=== PATIENT | male | born 1960 | race Caucasian/White ===

== ENCOUNTER 2016-10-24 20:00 | Inpatient (IN) | payer SELFPAY ==
[~2016-10-24] VITALS: Ht 182.9 cm; Wt 104.3 kg
[2016-10-24 20:26] LABS: BASO # 0.1 x10^3/uL (0.0-0.2); BASO % 1 % (0-3); EOS % 1 % (0-3); HEMATOCRIT 49.2 % (39.0-53.0); HEMOGLOBIN 16.3 g/dL (13.0-17.5); LYMPH # 5.9 x10^3/uL (1.0-4.8); LYMPH % 27 % (24-48); MEAN CORPUSCULAR HEMOGLOBIN 27 pg (25-35); MEAN CORPUSCULAR HGB CONC 33 g/dL (31-37); MEAN CORPUSCULAR VOLUME 83 fL (79-100); MONO % 9 % (0-9); NEUT % 63 % (31-73); PLATELET COUNT 287 x10^3/uL (140-400); RED BLOOD COUNT 5.96 x10^6/uL (4.30-5.70); RED CELL DISTRIBUTION WIDTH 16.3 % (11.5-14.5); WHITE BLOOD COUNT 21.8 x10^3/uL (4.0-11.0)
[2016-10-24] MEDS ORDERED: NITROGLYCERIN SUBLINGUAL 0.4 MG BOTTLE OF 25. SL PRN (20:30)
[2016-10-24] MEDS ORDERED: ASPIRIN 81 MG TAB.CHEW PO ONE (20:30)
[2016-10-24] MEDS: MORPHINE SULFATE 2 MG/ML DISP.SYRIN. IV PRN ×2 (20:32→22:16)
[2016-10-24 20:34] LABS: CALCIUM 9.4 mg/dL (8.5-10.1); CREATININE 0.9 mg/dL (0.7-1.3); POTASSIUM 3.2 mmol/L (3.5-5.1)
[2016-10-24 20:40] LABS: ALBUMIN 4.4 g/dL (3.4-5.0); DIRECT BILIRUBIN 0.1 mg/dL (0.0-0.2); TOTAL BILIRUBIN 0.4 mg/dL (0.2-1.0)
[2016-10-24 20:52] LABS: % EOS 3 % (0-5); PLT ESTIMATE ADEQUATE (ADEQUATE); TOXIC GRANULATION SLIGHT
[2016-10-24] MEDS ORDERED: CONTRAST GIVEN MC PRN (21:15)
[2016-10-24] MEDS ORDERED: IOHEXOL 350 MG/ML 100ML VIAL. IV ONE (21:30)
[2016-10-24] MEDS ORDERED: ONDANSETRON PF 4 MG/2 ML VIAL. IV ONE (21:45)
[2016-10-24] MEDS ORDERED: HYDROMORPHONE 2 MG/ML VIAL. IV ONE (21:45)
--- NOTE | 2016-10-24 22:49 | RAD ---
PROCEDURE CT angiogram of the chest abdomen pelvis without and with intravenous contrast. HISTORY Substernal chest pain since 1700 hours. Shortness of air, nausea, and vomiting. Evaluate for dissection, abdominal aortic aneurysm, or mesenteric enteric ischemia. TECHNIQUE Initially, noncontrast CT of the chest, abdomen, and pelvis was performed. After intravenous contrast administration, 90 mL Omnipaque 350, CT angiogram of the chest, abdomen, and pelvis with attention the aorta was performed. Axial, sagittal, and coronal 2D reconstructions were obtained. Rotating 3D volume rendered reconstructions of the aorta were obtained. Exposure: One or more of the following individualized dose reduction techniques were utilized for this examination: 1. Automated exposure control. 2. Adjustment of the mA and/or kV according to patient size. 3. Use of iterative reconstruction technique. Stenosis calculations for CT, MR and conventional angiography are based upon measurement of the distal ICA diameter in accordance with the NASCET methodology. Stenosis calculations for carotid ultrasound studies are derived from validated velocity criteria which are known to correlate with the NASCET methodology. COMPARISON None. FINDINGS Noncontrast images demonstrate no evidence of aortic intramural hematoma. Post-contrast images demonstrate no evidence of aortic dissection or aneurysm. Conventional 3 vessel aortic arch is present. Thoracic and abdominal aortic atherosclerosis is seen. There are 2 right renal arteries and single left renal artery. Celiac axis and superior mesenteric artery enhance appropriately. Ostium of the inferior mesenteric artery demonstrates 50 percent luminal diameter stenosis from atherosclerotic plaquing. Just inferior to the origin of the inferior mesenteric artery, there is focal 60% luminal diameter stenosis of the aorta. Iliac arteries are patent. Visualized thyroid is symmetric. Trachea and mainstem bronchi appear patent. Lungs demonstrate scattered atelectasis. Liver, spleen, gallbladder, and bilateral adrenal glands unremarkable. Bilateral kidneys enhance symmetrically. No bowel obstruction is seen. Appendix is without evidence of inflammation. Colonic diverticulosis is noted. Urinary bladder is enlarged. Given level of distention, urinary bladder wall is at the upper limits of normal. Moderate retroperitoneal fluid is seen centered at the pancreas. Findings are compatible with acute pancreatitis. There is secondary inflammation of the duodenum. Secondary to phase of enhancement, cannot assess for pancreatic necrosis or patency of the splenic vein. Degeneration is present in spine. IMPRESSION 1. Acute pancreatitis. 2. No evidence of aortic aneurysm or dissection. 3. 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 4. Focal 60 percent luminal diameter stenosis of the distal abdominal aorta. Electronically signed by: Herb Hill MD (Oct 24, 2016 22:47:14)
[2016-10-24] MEDS ORDERED: MORPHINE SULFATE 2 MG/ML DISP.SYRIN. IV PRN (23:00)
[2016-10-24] MEDS: HYDROMORPHONE 2 MG/ML VIAL. IV PRN (23:18)
[2016-10-24] MEDS ORDERED: IV NORMAL SALINE 1000ML BAG 1,000 ML IV ONE (23:45)
--- NOTE | 2016-10-24 23:55 | PHYS DOC ---
Past Medical History Past Medical History: Depression, Diverticulosis, High Cholesterol, Hypertension Past Surgical History: Other Additional Past Surgical Histo: LEFT AND RIGHT INGUINAL HERNIA REPAIR Alcohol Use: Rarely Drug Use: None Adult General Chief Complaint Chief Complaint: CHEST PAIN HPI HPI 56-year-old male presenting the emergency department with epigastric abdominal pain and substernal chest pain since about 5 tonight. It is associated with sweatiness nausea vomiting. It radiates to the back. It is severe and constant. He denies numbness weakness or tingling. He denies blood in stool. He denies fevers or chills. Review of Systems Review of Systems ROS negative for fevers or chills. Positive for chest pain nausea vomiting abdominal pain. All other review of systems is negative unless otherwise noted in history of present illness. Current Medications Current Medications Current Medications Medications (Trade) Dose Ordered Sig/Gisela Start Time Stop Time Status Last Admin Dose Admin Aspirin (Children'S Aspirin) 324 mg 1X ONCE 10/24/16 20:30 10/24/16 20:31 DC Fentanyl Citrate (Fentanyl 2ml Vial) 50 mcg PRN Q2HR PRN 10/24/16 23:00 10/25/16 22:59 Hydromorphone HCl (Dilaudid) 0.5 mg PRN Q1HR PRN 10/24/16 21:30 10/24/16 23:18 0.5 MG Info (Do NOT chart on this entry -- for MONITORING) 1 each PRN DAILY PRN 10/24/16 21:15 10/26/16 21:14 Iohexol (Omnipaque 350 Mg/ml) 90 ml 1X ONCE 10/24/16 21:30 10/24/16 21:31 DC 10/24/16 21:48 90 ML Morphine Sulfate 2 mg PRN Q2HR PRN 10/24/16 23:00 10/25/16 22:59 Nitroglycerin (Nitrostat) 0.4 mg PRN Q5MIN PRN 10/24/16 20:30 10/24/16 20:32 0.4 MG Ondansetron HCl (Zofran) 4 mg PRN Q8HRS PRN 10/24/16 23:00 10/25/16 22:59 Allergies Allergies Allergies Coded Allergies Type Severity Reaction Last Updated Verified No Known Drug Allergies 10/24/16 No Physical Exam Physical Exam Constitutional: Well developed, well nourished, no acute distress, non-toxic appearance. HENT: Normocephalic, atraumatic, bilateral external ears normal, oropharynx moist, no oral exudates, nose normal. [] Eyes: PERRLA, EOMI, conjunctiva normal, no discharge. [] Neck: Normal range of motion, no tenderness, supple, no stridor. Cardiovascular:Heart rate regular rhythm, no murmur [] Lungs & Thorax: Bilateral breath sounds clear to auscultation Abdomen: Abdomen is soft and mildly tender to palpation in the epigastric region. Negative McBurney's point. Mild guarding without rebound tenderness present. Skin: Warm, dry, no erythema, no rash. [] Back: No tenderness, no CVA tenderness. Extremities: No tenderness, no cyanosis, no clubbing, ROM intact, no edema. [] Neurologic: Alert and oriented X 3, normal motor function, normal sensory function, no focal deficits noted. Psychologic: Affect normal, judgement normal, mood normal. [] Current Patient Data Vital Signs Vital Signs Date Time Temp Pulse Resp B/P Pulse Ox O2 Delivery O2 Flow Rate FiO2 10/24/16 20:32 67 149/87 10/24/16 20:11 97.6 20 95 Room Air 97.6 Lab Values Laboratory Tests Test 10/24/16 20:08 White Blood Count 21.8x10^3/uL (4.0-11.0) H Red Blood Count 5.96x10^6/uL (4.30-5.70) H Hemoglobin 16.3g/dL (13.0-17.5) Hematocrit 49.2% (39.0-53.0) Mean Corpuscular Volume 83fL (79-100) Mean Corpuscular Hemoglobin 27pg (25-35) Mean Corpuscular Hemoglobin Concent 33g/dL (31-37) Red Cell Distribution Width 16.3% (11.5-14.5) H Platelet Count 287x10^3/uL (140-400) Neutrophils (%) (Auto) 63% (31-73) Lymphocytes (%) (Auto) 27% (24-48) Monocytes (%) (Auto) 9% (0-9) Eosinophils (%) (Auto) 1% (0-3) Basophils (%) (Auto) 1% (0-3) Neutrophils # (Auto) 13.6x10^3uL (1.8-7.7) H Lymphocytes # (Auto) 5.9x10^3/uL (1.0-4.8) H Monocytes # (Auto) 1.9x10^3/uL (0.0-1.1) H Eosinophils # (Auto) 0.3x10^3/uL (0.0-0.7) Basophils # (Auto) 0.1x10^3/uL (0.0-0.2) Segmented Neutrophils % 71% (35-66) H Band Neutrophils % 2% (0-9) Lymphocytes % 21% (24-48) L Monocytes % 3% (0-10) Eosinophils % 3% (0-5) Toxic Granulation Slight Platelet Estimate Adequate (ADEQUATE) Sodium Level 141mmol/L (136-145) Potassium Level 3.2mmol/L (3.5-5.1) L Chloride Level 99mmol/L (98-107) Carbon Dioxide Level 25mmol/L (21-32) Anion Gap 17 (6-14) H Blood Urea Nitrogen 13mg/dL (8-26) Creatinine 0.9mg/dL (0.7-1.3) Estimated GFR (Cockcroft-Gault) 87.0 Glucose Level 163mg/dL (70-99) H Calcium Level 9.4mg/dL (8.5-10.1) Total Bilirubin 0.4mg/dL (0.2-1.0) Direct Bilirubin 0.1mg/dL (0.0-0.2) Aspartate Amino Transferase (AST) 12U/L (15-37) L Alanine Aminotransferase (ALT) 32U/L (16-63) Alkaline Phosphatase 137U/L (46-116) H Lactate Dehydrogenase 228U/L (85-227) H Troponin I Quantitative < 0.017ng/mL (0.000-0.055) HY-Kqg-C-Type Natriuretic Peptide 218pg/mL (0-124) H Total Protein 8.0g/dL (6.4-8.2) Albumin 4.4g/dL (3.4-5.0) Lipase 36486J/L (73-393) H Laboratory Tests 10/24/16 20:08 Laboratory Tests 10/24/16 20:08 EKG EKG 3 EKGs performed. Initial EKG performed at 2001 shows sinus rhythm with a regular rate. [place] is leftward. Intervals show within normal limits. ST segments are congruent. Repeat EKGs did not show acute evolving changes. [] Radiology/Procedures Radiology/Procedures [] [facility] [address] [place] [address] IMAGING REPORT Signed PATIENT: CHINMAY MOYER ACCOUNT: [id number] : 1960 LOCATION: ER AGE: 56 SEX: M EXAM STATUS: REG ER ORD. PHYSICIAN: CAMMIE WILCOX MD REASON: chest and abd pain severe eval for dissection/AAA/mesenteric ischemia PROCEDURE: CTA CHEST ABD PELVIS PROCEDURE CT angiogram of the chest abdomen pelvis without and with intravenous contrast. HISTORY Substernal chest pain since 1700 hours. Shortness of air, nausea, and vomiting. Evaluate for dissection, abdominal aortic aneurysm, or mesenteric enteric ischemia. TECHNIQUE Initially, noncontrast CT of the chest, abdomen, and pelvis was performed. After intravenous contrast administration, 90 mL Omnipaque 350, CT angiogram of the chest, abdomen, and pelvis with attention the aorta was performed. Axial, sagittal, and coronal 2D reconstructions were obtained. Rotating 3D volume rendered reconstructions of the aorta were obtained. Exposure: One or more of the following individualized dose reduction techniques were utilized for this examination: 1. Automated exposure control. 2. Adjustment of the mA and/or kV according to patient size. 3. Use of iterative reconstruction technique. Stenosis calculations for CT, MR and conventional angiography are based upon measurement of the distal ICA diameter in accordance with the NASCET methodology. Stenosis calculations for carotid ultrasound studies are derived from validated velocity criteria which are known to correlate with the NASCET methodology. COMPARISON None. FINDINGS Noncontrast images demonstrate no evidence of aortic intramural hematoma. Post-contrast images demonstrate no evidence of aortic dissection or aneurysm. Conventional 3 vessel aortic arch is present. Thoracic and abdominal aortic atherosclerosis is seen. There are 2 right renal arteries and single left renal artery. Celiac axis and superior mesenteric artery enhance appropriately. Ostium of the inferior mesenteric artery demonstrates 50 percent luminal diameter stenosis from atherosclerotic plaquing. Just inferior to the origin of the inferior mesenteric artery, there is focal 60% luminal diameter stenosis of the aorta. Iliac arteries are patent. Visualized thyroid is symmetric. Trachea and mainstem bronchi appear patent. Lungs demonstrate scattered atelectasis. Liver, spleen, gallbladder, and bilateral adrenal glands unremarkable. Bilateral kidneys enhance symmetrically. No bowel obstruction is seen. Appendix is without evidence of inflammation. Colonic diverticulosis is noted. Urinary bladder is enlarged. Given level of distention, urinary bladder wall is at the upper limits of normal. Moderate retroperitoneal fluid is seen centered at the pancreas. Findings are compatible with acute pancreatitis. There is secondary inflammation of the duodenum. Secondary to phase of enhancement, cannot assess for pancreatic necrosis or patency of the splenic vein. Degeneration is present in spine. IMPRESSION 1. Acute pancreatitis. 2. No evidence of aortic aneurysm or dissection. 3. 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 4. Focal 60 percent luminal diameter stenosis of the distal abdominal aorta. Electronically signed by: Herb Hill MD (Oct 24, 2016 22:47:14) Course & Med Decision Making Course & Med Decision Making Pertinent Labs and Imaging studies reviewed. (See chart for details) 56-year-old male presenting to the emergency department today with chest pain and epigastric abdominal pain. Vital signs showed hypertension. The patient was in extreme pain in the emergency department and mildly diaphoretic. Multiple EKGs obtained which showed no acute evolving changes. Blood work was obtained which showed significantly elevated lipase with white blood cell count. LDH elevated as well. Potassium mildly low. Patient was given IV fluids along with IV pain medications. CTA of the chest abdomen pelvis showed a normal-appearing aorta with acute pancreatitis. The patient was placed nothing by mouth, IV fluids administered and he was subsequent admitted to our hospital for further evaluation workup and care. GI and cardiology consultation placed. Dragon Disclaimer Dragon Disclaimer This electronic medical record was generated, in whole or in part, using a voice recognition dictation system. Departure Departure Impression: Primary Impression: Pancreatitis Additional Impressions: Leukocytosis Abdominal pain Disposition: 09 ADMITTED INPATIENT Admitting Physician: Tulio Nichols Condition: STABLE Referrals: TULIO NICHOLS MD (PCP) Problem Qualifiers CAMMIE WILCOX MD Oct 24, 2016 23:55
[2016-10-25] VITALS (7 sets, daily range): BP systolic 128–164; BP diastolic 75–98
[2016-10-25] MEDS ORDERED: DICYCLOMINE 20 MG/2 ML AMPUL. IM ONE
[2016-10-25] MEDS: FENTANYL PF 100 MCG/2 ML VIAL. IV PRN ×5 (00:03→14:31)
--- NOTE | 2016-10-25 00:03 | ACF ---
Admission Forms Criteria PANCREATITIS Clinical Indications for Admission to Inpatient Care (Place 'X' for any and all applicable criteria): Admission is indicated for ANY ONE of the following (1)(2)(3)(4): [X ]I. Acute pancreatitis[A] as indicated by 2 or more of the following: [X ]a) Abdominal pain (eg, epigastric, left upper quadrant) [X ]b) Serum amylase or serum lipase greater than 3 times the upper limit of normal [ ]c) Characteristic findings from abdominal imaging (eg, pancreatic inflammation, pancreatic necrosis, peripancreatic fluid collection)[B] [ ]II. Pancreatitis (acute or chronic ) requiring inpatient care as indicated by 1 or more of the following : [ ]a) Inability to maintain oral hydration Hypoxemia [ ]b) Evidence of infection (eg, fever, peripancreatic abscess) [ ]c) Severe pain requiring acute inpatient management [ ]d) Hemodynamic instability [ ]e) Hypoxemia [ ]f) Acute renal failure [ ]g) Severe electrolyte abnormalities Extended stay beyond goal length of stay may be needed for (1)(11) [ ]a) Severe acute pancreatitis (10)(19) [ ]b) Persistent symptoms, ascites, or pleural effusion [ ]c) Abdominal compartment syndrome (10) [ ]d) Late complications [ ]e) Acute renal failure (27) [ ]f) Gallstones in gallbladder The original [employer] content created by [employer] has been revised. The portions of the content which have been revised are identified through the use of italic text or in bold,and [facility] has neither reviewed nor approved the modified material.All other unmodified content is copyright [facility]. Please see references footnoted in the original [facility] edition 2016 Admission Criteria Met?: Yes CORNELIUS FREEMAN Oct 25, 2016 00:03
[2016-10-25] MEDS ORDERED: ZOLP10TA4 PO (00:33)
[2016-10-25] MEDS ORDERED: FLUO20CA16 PO (00:33)
[2016-10-25] MEDS ORDERED: PRAM0.255 PO (00:33)
[2016-10-25] MEDS ORDERED: PRAV20TA2 PO (00:33)
[2016-10-25] MEDS ORDERED: HYDR12.58 PO (00:33)
[2016-10-25] MEDS ORDERED: PERI1TAB PO (00:33)
[2016-10-25] MEDS: HYDROMORPHONE 2 MG/ML VIAL. IV PRN ×4 (01:45→12:26)
[2016-10-25 03:39] LABS: BASO % 0 % (0-3); EOS % 0 % (0-3); HEMATOCRIT 48.7 % (39.0-53.0); HEMOGLOBIN 16.2 g/dL (13.0-17.5); LYMPH # 1.1 x10^3/uL (1.0-4.8); LYMPH % 4 % (24-48); MEAN CORPUSCULAR HEMOGLOBIN 27 pg (25-35); MEAN CORPUSCULAR HGB CONC 33 g/dL (31-37); MEAN CORPUSCULAR VOLUME 82 fL (79-100); MONO % 4 % (0-9); NEUT % 91 % (31-73); PLATELET COUNT 238 x10^3/uL (140-400); RED BLOOD COUNT 5.97 x10^6/uL (4.30-5.70); RED CELL DISTRIBUTION WIDTH 16.3 % (11.5-14.5); WHITE BLOOD COUNT 25.3 x10^3/uL (4.0-11.0)
[2016-10-25 03:58] LABS: ALBUMIN 4.3 g/dL (3.4-5.0); ALBUMIN/GLOBULIN RATIO 1.5 (1.0-1.7); CALCIUM 9.5 mg/dL (8.5-10.1); POTASSIUM 4.6 mmol/L (3.5-5.1); TOTAL BILIRUBIN 0.5 mg/dL (0.2-1.0); TOTAL PROTEIN 7.2 g/dL (6.4-8.2)
[2016-10-25] MEDS: ONDANSETRON PF 4 MG/2 ML VIAL. IV PRN ×3 (05:28→14:30)
[2016-10-25] MEDS: MORPHINE SULFATE 2 MG/ML DISP.SYRIN. IV PRN (08:03)
--- NOTE | 2016-10-25 08:28 | PDOC2 ---
SHANIA PEREZ WATER FILTERER 10/25/16 0828: CARDIAC CONSULT DATE OF CONSULT Date of Consult DATE: 10/25/16 TIME: 08:20 REASON FOR CONSULT Reason for Consult: Chest pain REFERRING PHYSICIAN Referring Physician: Sal SOURCE Source: Chart review, Patient HISTORY OF PRESENT ILLNESS HISTORY OF PRESENT ILLNESS This is a 56 yo male admitted for complains of abdominal pain. His abdominal pain started at the center and became diffuse. This started 5 days ago and has been able to eat and drink till yesterday afternoon when he started having nausea and vomiting. No diarrhea or fever. With this he started having diaphoresis and shooting pain intermittent that goes to his left chest. Currently he complains of abdominal pain and tenderness. No prior CAD but with reported normal LHC remotely. Positive for HTN and HLP. Denies any VTE, falls or recent injury. 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 PAST MEDICAL HISTORY Cardiovascular: HTN, Hyperlipidemia Pulmonary: No pertinent hx CENTRAL NERVOUS SYSTEM: Other (No pertinent history) GI: Diverticulosis Heme/Onc: No pertinent hx Hepatobiliary: No pertinent hx Psych: Depression Musculoskeletal: Osteoarthritis, Other (chronic neck pain with lipoma and left arm radiculopathy) Rheumatologic: No pertinent hx Infectious disease: No pertinent hx ENT: No pertinent hx Renal/: No pertinent hx Endocrine: No pertinent hx Dermatology: No pertinent hx PAST SURGICAL HISTORY Past Surgical History: Hernia Repair (bilateral) FAMILY HISTORY Family History: Coronary Artery Disease (grandparents) SOCIAL HISTORY Smoke: <1 pack per day ALCOHOL: none (used to drink ETOH) Drugs: None Lives: with Family CURRENT MEDICATIONS CURRENT MEDICATIONS Current Medications Medications (Trade) Dose Ordered Sig/Gisela Route PRN Reason Start Time Stop Time Status Last Admin Dose Admin Nitroglycerin (Nitrostat) 0.4 mg PRN Q5MIN PRN SL CHEST PAIN 10/24/16 20:30 10/24/16 20:32 Morphine Sulfate 2 mg PRN Q1HR PRN IV SEVERE PAIN 10/24/16 20:30 10/25/16 08:03 DC 10/25/16 08:03 Iohexol (Omnipaque 350 Mg/ml) 90 ml 1X ONCE IV 10/24/16 21:30 10/24/16 21:31 DC 10/24/16 21:48 Hydromorphone HCl (Dilaudid) 1 mg 1X ONCE IV 10/24/16 21:45 10/24/16 21:46 DC 10/24/16 21:31 Hydromorphone HCl (Dilaudid) 0.5 mg PRN Q1HR PRN IV SEVERE PAIN 10/24/16 21:30 10/25/16 05:01 DC 10/25/16 05:01 Ondansetron HCl (Zofran) 4 mg 1X ONCE IV 10/24/16 21:45 10/24/16 21:46 DC 10/24/16 21:31 Ondansetron HCl (Zofran) 4 mg PRN Q8HRS PRN IV NAUSEA/VOMITING 10/24/16 23:00 10/25/16 22:59 10/25/16 05:28 Fentanyl Citrate 50 mcg 50 mcg PRN Q2HR PRN IV SEVERE PAIN 10/24/16 23:00 10/25/16 22:59 10/25/16 06:53 Sodium Chloride (Iv Sodium Chloride 0.9% 1000ml Bag) 1,000 ml @ 100 mls/hr 1X ONCE IV 10/24/16 23:45 10/25/16 09:44 10/24/16 23:53 Dicyclomine HCl (Bentyl) 10 mg 1X ONCE IM 10/25/16 00:00 10/25/16 00:01 DC 10/24/16 23:43 ALLERGIES ALLERGIES: Coded Allergies: No Known Drug Allergies (Unverified , 10/24/16) ROS Review of System 14 point ROS evaluated with pertinent positives noted per HPI PHYSICAL EXAM General: Alert, Oriented X3, Cooperative, mild distress HEENT: Atraumatic, Mucous membr. moist/pink Lungs: Clear to auscultation, Normal air movement Heart: Regular rate, Normal S1, Normal S2, No murmurs Abdomen: Other (mild firmness with diffuse tenderness to abdomen) Extremities: No cyanosis, No edema Skin: No breakdown, No significant lesion Neuro: Normal speech, Sensation intact Psych/Mental Status: Mental status NL, Mood NL MUSCULOSKELETAL: Osteoarthritic changes both hands VITALS VITALS Vital Signs Date Time Temp Pulse Resp B/P Pulse Ox O2 Delivery O2 Flow Rate FiO2 10/25/16 08:03 18 99 Nasal Cannula 2.0 10/25/16 03:30 97.3 96 128/90 97.3 LABS Lab: Laboratory Tests Test 10/24/16 20:08 1/21/17 02:50 White Blood Count 21.8x10^3/uL (4.0-11.0) 25.3x10^3/uL (4.0-11.0) Red Blood Count 5.96x10^6/uL (4.30-5.70) 5.97x10^6/uL (4.30-5.70) Hemoglobin 16.3g/dL (13.0-17.5) 16.2g/dL (13.0-17.5) Hematocrit 49.2% (39.0-53.0) 48.7% (39.0-53.0) Mean Corpuscular Volume 83fL (79-100) 82fL (79-100) Mean Corpuscular Hemoglobin 27pg (25-35) 27pg (25-35) Mean Corpuscular Hemoglobin Concent 33g/dL (31-37) 33g/dL (31-37) Red Cell Distribution Width 16.3% (11.5-14.5) 16.3% (11.5-14.5) Platelet Count 287x10^3/uL (140-400) 238x10^3/uL (140-400) Neutrophils (%) (Auto) 63% (31-73) 91% (31-73) Lymphocytes (%) (Auto) 27% (24-48) 4% (24-48) Monocytes (%) (Auto) 9% (0-9) 4% (0-9) Eosinophils (%) (Auto) 1% (0-3) 0% (0-3) Basophils (%) (Auto) 1% (0-3) 0% (0-3) Neutrophils # (Auto) 13.6x10^3uL (1.8-7.7) 23.1x10^3uL (1.8-7.7) Lymphocytes # (Auto) 5.9x10^3/uL (1.0-4.8) 1.1x10^3/uL (1.0-4.8) Monocytes # (Auto) 1.9x10^3/uL (0.0-1.1) 1.1x10^3/uL (0.0-1.1) Eosinophils # (Auto) 0.3x10^3/uL (0.0-0.7) 0.0x10^3/uL (0.0-0.7) Basophils # (Auto) 0.1x10^3/uL (0.0-0.2) 0.0x10^3/uL (0.0-0.2) Segmented Neutrophils % 71% (35-66) Band Neutrophils % 2% (0-9) Lymphocytes % 21% (24-48) Monocytes % 3% (0-10) Eosinophils % 3% (0-5) Toxic Granulation Slight Platelet Estimate Adequate (ADEQUATE) Sodium Level 141mmol/L (136-145) 141mmol/L (136-145) Potassium Level 3.2mmol/L (3.5-5.1) 4.6mmol/L (3.5-5.1) Chloride Level 99mmol/L (98-107) 102mmol/L (98-107) Carbon Dioxide Level 25mmol/L (21-32) 23mmol/L (21-32) Anion Gap 17 (6-14) 16 (6-14) Blood Urea Nitrogen 13mg/dL (8-26) 18mg/dL (8-26) Creatinine 0.9mg/dL (0.7-1.3) 1.0mg/dL (0.7-1.3) Estimated GFR (Cockcroft-Gault) 87.0 77.0 Glucose Level 163mg/dL (70-99) 142mg/dL (70-99) Calcium Level 9.4mg/dL (8.5-10.1) 9.5mg/dL (8.5-10.1) Total Bilirubin 0.4mg/dL (0.2-1.0) 0.5mg/dL (0.2-1.0) Direct Bilirubin 0.1mg/dL (0.0-0.2) Aspartate Amino Transf (AST/SGOT) 12U/L (15-37) 21U/L (15-37) Alanine Aminotransferase (ALT/SGPT) 32U/L (16-63) 30U/L (16-63) Alkaline Phosphatase 137U/L (46-116) 122U/L (46-116) Lactate Dehydrogenase 228U/L (85-227) Troponin I Quantitative < 0.017ng/mL (0.000-0.055) < 0.017ng/mL (0.000-0.055) BT-Wzu-F-Type Natriuretic Peptide 218pg/mL (0-124) Total Protein 8.0g/dL (6.4-8.2) 7.2g/dL (6.4-8.2) Albumin 4.4g/dL (3.4-5.0) 4.3g/dL (3.4-5.0) Lipase 16924L/L (73-393) 7708U/L (73-393) BUN/Creatinine Ratio 18 (6-20) Albumin/Globulin Ratio 1.5 (1.0-1.7) ASSESSMENT/PLAN ASSESSMENT/PLAN 1. Atypical CP: Troponin series normal. EKG not available in EMR. Reviewed ED interpretation of EKG noted for SR and no acute changes. Chest pain is related to acute pancreatitis confirmed with elevated lipase and CT. No further cardiac testing. 2. Acute pancreatitis: Gi has been consulted. 3. Inferior mesenteric artery stenosis: with 50% stenosis via CT. Per PCP 4. Distal abdominal aorta stenosis: 60% via CT. No notable claudication. Per PCP 5. HTN: controlled currently. labetolol IV PRN while NPO. 6. HLP: Will check TG in relation to pancreatitis 7. Tobaccoism: smoking cessation Problems: VICTOR M GRECO MD 10/25/16 1126: CARDIAC CONSULT ALLERGIES ALLERGIES: Coded Allergies: No Known Drug Allergies (Unverified , 10/24/16) ASSESSMENT/PLAN ASSESSMENT/PLAN Patient seen and examined. Agree with CRITICAL CARE TRANSPORT NURSE's assessment and plan. Chest pain/ epigastric pain atypical and most probably secondary to his acute pancreatitis. Myocardial infarction ruled out. Plan for Lexiscan nuclear stress test as an outpatient once active issues resolve to rule out ischemia. Continue treatment for pancreatitis but GI team. Thank you for consultation. Problems: SHANIA PEREZ APRN Oct 25, 2016 08:28 VICTOR M GRECO MD Oct 25, 2016 11:26
--- NOTE | 2016-10-25 08:49 | RAD ---
Portable chest, 10/24/2016: History: Chest pain The heart is within normal limits in size. The pulmonary vascularity is normal. There is minimal right basilar atelectasis/infiltrate. The left lung is clear. There is no evidence of pleural fluid. IMPRESSION: Minimal right basilar atelectasis/infiltrate.
[2016-10-25] MEDS ORDERED: LABETALOL 20 MG/4 ML DISP.SYRIN. IVP PRN (09:00)
--- NOTE | 2016-10-25 09:21 | EKG ---
[facility] [address] [place] [address] Test Date: 2016-10-25 Test Time: 09:13:38 Pat Name: CHINMAY MOYER Department: Room: 201 1 Gender: M Manager Validation: : 1960 Requested By: SHANIA PEREZ Order Number: [id number] Reading MD: Tonya Lee Measurements Intervals [place] Rate: 77 P: 40 MS: 162 QRS: 46 QRSD: 92 T: 68 QT: 382 QTc: 434 Interpretive Statements SINUS RHYTHM VENTRICULAR PREMATURE COMPLEX(ES) QRS(T) CONTOUR ABNORMALITY CONSIDER ANTEROLATERAL MYOCARDIAL DAMAGE ABNORMAL ECG RI6.01 No previous ECG available for comparison Electronically Signed On 10-27-2016 0:30:28 [employer] by Tonya Lee
[2016-10-25 09:27] LABS: MAGNESIUM 1.7 mg/dL (1.8-2.4)
[2016-10-25 09:28] LABS: CHOLESTEROL/HDL RATIO 6.2
[2016-10-25] MEDS ORDERED: HYDROMORPHONE 2 MG/ML VIAL. IV PRN (09:30)
--- NOTE | 2016-10-25 12:20 | EKG ---
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
[2016-10-25] MEDS ORDERED: ZOLPIDEM 5 MG TABLET. PO PRN (13:00)
[2016-10-25] MEDS ORDERED: MAGNESIUM SULFATE 2GM 50 ML IV ONE (13:00)
--- NOTE | 2016-10-25 13:07 | PDOC ---
Provider Note Provider Note [id number] AISSATOU WELCH MD Oct 25, 2016 13:07
--- NOTE | 2016-10-25 13:23 | HP ---
ADMIT DATE: 10/25/2016 CHIEF COMPLAINT: Abdominal pain. HISTORY OF PRESENT ILLNESS: A 56-year-old white male patient of Dr. Nix who has a history of hypertension and anxiety disorder and restless legs syndrome. He came in with diffuse abdominal pain for 2-3 days and was found to have pancreatitis per CT scan and very high lipase of 7000. He used to drink alcohol heavily, but says he has been alcohol free for more than 10 years and no history of gallbladder disease. PAST MEDICAL HISTORY: Surgically, he has had appendectomy and hernia. MEDICATIONS: Include Prozac, Mirapex, pravastatin, and blood pressure meds. 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 FAMILY HISTORY: Unremarkable. REVIEW OF SYSTEMS: No other complaints. OBJECTIVE: ENT: Mucosa pink and moist. Sclerae are clear. Pharynx is dry. NECK: No bruits, nodes or thyroid enlargement. LUNGS: Clear, without tachypnea. CARDIOVASCULAR: Tachycardia, rate 110. No irregular beat or murmur. ABDOMEN: Diffusely tender, hyperresonant and decreased bowel sounds. No masses are felt. EXTREMITIES: Good pedal and radial pulses. No edema. No joint or skin lesions. NEUROLOGIC: Physiologic and nonfocal. ASSESSMENT: Acute pancreatitis, etiology is unclear. He has a remote history of chronic alcohol abuse and no history of gallbladder disease. His triglycerides are mildly elevated at 400, possible etiology there. PLAN: GI , aggressive IV fluids and pain control. AISSATOU WELCH MD DR: CRISTIAN/elen JOB#: [id number] / [id number]
[2016-10-25] MEDS: LORAZEPAM 2 MG/ML VIAL IV PRN ×2 (14:40→19:31)
[2016-10-25] MEDS: IV DEXTROSE 5 %-0.45 % NACL 1,000 ML IV SCH ×3 (14:43→21:29)
[2016-10-25] MEDS: HYDROMORPHONE STANDARD PCA 30 ML IV PRN (15:34)
[2016-10-25] MEDS ORDERED: PRAMIPEXOLE 0.25 MG TABLET. PO SCH (21:00)
[2016-10-25] MEDS ORDERED: ZOLPIDEM 5 MG TABLET. PO SCH (21:00)
[2016-10-25] MEDS ORDERED: FLUOXETINE HCL 20 MG CAPSULE PO SCH (21:00)
[2016-10-26] MEDS: LORAZEPAM 2 MG/ML VIAL IV PRN ×4 (02:04→20:31)
[2016-10-26] MEDS: IV DEXTROSE 5 %-0.45 % NACL 1,000 ML IV SCH ×3 (02:04→15:08)
[2016-10-26 03:30] VITALS: BP 177/92
[2016-10-26 07:00] VITALS: BP 171/90
[2016-10-26] MEDS: ONDANSETRON PF 4 MG/2 ML VIAL. IV PRN ×2 (09:28→14:02)
--- NOTE | 2016-10-26 10:52 | PDOC ---
Provider Note Provider Note vss, afeb, good output- still lots of pain, using upper cutter machine- lipase down, abd a little less tender and distended, no bs- has ileus from panc and upper cutter machine,- cont npo , iv fluid, upper cutter machine- fo;;ow lab. transfer AISSATOU WELCH MD Oct 26, 2016 10:52
[2016-10-26 11:00] VITALS: BP 154/74
[2016-10-26 15:00] VITALS: BP 158/90
[2016-10-26] MEDS: HYDROMORPHONE STANDARD PCA 30 ML IV PRN (15:11)
[2016-10-26] MEDS: FAMOTIDINE 20 MG/2 ML VIAL IVP SCH (18:03)
[2016-10-26 19:00] VITALS: BP 151/97
[2016-10-26 23:00] VITALS: BP 151/101
[2016-10-27] MEDS: IV DEXTROSE 5 %-0.45 % NACL 1,000 ML IV SCH ×5 (00:37→22:53)
[2016-10-27 03:16] VITALS: BP 147/97
[2016-10-27 07:00] VITALS: BP 145/96
[2016-10-27 08:07] LABS: BASO % 0 % (0-3); EOS % 0 % (0-3); HEMATOCRIT 41.6 % (39.0-53.0); HEMOGLOBIN 13.8 g/dL (13.0-17.5); LYMPH # 1.4 x10^3/uL (1.0-4.8); LYMPH % 8 % (24-48); MEAN CORPUSCULAR HEMOGLOBIN 28 pg (25-35); MEAN CORPUSCULAR HGB CONC 33 g/dL (31-37); MEAN CORPUSCULAR VOLUME 83 fL (79-100); MONO % 7 % (0-9); NEUT % 85 % (31-73); PLATELET COUNT 147 x10^3/uL (140-400); RED BLOOD COUNT 5.01 x10^6/uL (4.30-5.70); RED CELL DISTRIBUTION WIDTH 16.6 % (11.5-14.5); WHITE BLOOD COUNT 18.9 x10^3/uL (4.0-11.0)
[2016-10-27] MEDS ORDERED: ONDANSETRON PF 4 MG/2 ML VIAL. IV PRN (08:15)
--- NOTE | 2016-10-27 08:15 | PDOC ---
GENERAL General: vss and afebrile. awake and alert and in significant pain still. will increased dose coupler meds. am labs pending. blood pressures elevated and norvasc will be started. lots of anxiety and ongoing nausea also and addressed. Problems: VITAL SIGNS Vital Signs: Vital Signs Date Time Temp Pulse Resp B/P Pulse Ox O2 Delivery O2 Flow Rate FiO2 10/27/16 03:16 99.2 95 20 147/97 86 99.2 10/26/16 23:00 Room Air 10/26/16 20:36 1.0 I & O I & O Intake and Output 10/27/16 07:00 Intake Total 1130.94 ml Output Total 325 ml Balance 805.94 ml Intake Oral 0 ml IV Total 1130.94 ml Output Urine Total 325 ml # Voids 1 ALLERGIES Allergies: Allergies Coded Allergies Type Severity Reaction Last Updated Verified No Known Drug Allergies 10/24/16 No MEDS Medications: Current Medications Medications (Trade) Dose Ordered Sig/Gisela Start Time Stop Time Status Last Admin Dose Admin Aspirin (Children'S Aspirin) 324 mg 1X ONCE 10/24/16 20:30 10/24/16 20:31 DC Dextrose/Sodium Chloride (Iv D5% - 1/2 NS) 1,000 ml @ 150 mls/hr Q6H40M 10/25/16 13:00 10/27/16 00:37 150 MLS/HR Dicyclomine HCl (Bentyl) 10 mg 1X ONCE 10/25/16 00:00 10/25/16 00:01 DC 10/24/16 23:43 10 MG Famotidine (Pepcid) 40 mg DAILY16 10/26/16 16:00 10/26/16 18:03 40 MG Fentanyl Citrate 50 mcg 50 mcg PRN Q2HR PRN 10/24/16 23:00 10/25/16 22:59 DC 10/25/16 14:31 50 MCG Fluoxetine HCl (Prozac) 20 mg HS 10/25/16 21:00 10/25/16 21:00 DC Hydromorphone HCl (Dilaudid Standard DEPUTY SHERIFF CHIEF) 30 ml @ 0 mls/hr CONT PRN PRN 10/25/16 13:00 10/26/16 15:11 0 MLS/HR Hydromorphone HCl (Dilaudid) 1 mg Q1HR PRN 10/25/16 09:30 10/25/16 09:30 DC Hydromorphone HCl 1 mg 1 mg PRN Q1HR PRN 10/25/16 09:31 10/25/16 13:05 DC 10/25/16 12:26 1 MG Info (Do NOT chart on this entry -- for MONITORING) 1 each PRN DAILY PRN 10/24/16 21:15 10/26/16 21:14 DC Iohexol (Omnipaque 350 Mg/ml) 90 ml 1X ONCE 10/24/16 21:30 10/24/16 21:31 DC 10/24/16 21:48 90 ML Labetalol HCl (Normodyne) 20 mg PRN Q2HR PRN 10/25/16 09:00 Lorazepam 1 mg 1 mg PRN Q4HRS PRN 10/25/16 13:00 10/26/16 20:31 1 MG Magnesium Sulfate/ Dextrose (Magnesium Sulfate PREMIX 2GM) 50 ml @ 25 mls/hr 1X ONCE 10/25/16 13:00 10/25/16 14:59 DC 10/25/16 15:45 25 MLS/HR Morphine Sulfate 2 mg PRN Q2HR PRN 10/24/16 23:00 10/25/16 22:59 DC Nitroglycerin (Nitrostat) 0.4 mg PRN Q5MIN PRN 10/24/16 20:30 10/24/16 20:32 0.4 MG Ondansetron HCl (Zofran) 4 mg PRN Q4HRS PRN 10/25/16 13:45 10/26/16 14:02 4 MG Pramipexole Dihydrochloride (miraPEX) 0.25 mg QHS 10/25/16 21:00 10/25/16 21:00 DC Sodium Chloride (Iv Sodium Chloride 0.9% 1000ml Bag) 1,000 ml @ 100 mls/hr 1X ONCE 10/24/16 23:45 10/25/16 09:44 DC 10/24/16 23:53 100 MLS/HR Zolpidem Tartrate (Ambien) 5 mg QHS 10/25/16 21:00 10/25/16 21:00 DC Zolpidem Tartrate 5 mg 5 mg PRN QHS PRN 10/25/16 13:00 10/25/16 13:05 DC LAB Lab: Laboratory Tests Test 10/27/16 07:20 White Blood Count 18.9x10^3/uL (4.0-11.0) Red Blood Count 5.01x10^6/uL (4.30-5.70) Hemoglobin 13.8g/dL (13.0-17.5) Hematocrit 41.6% (39.0-53.0) Mean Corpuscular Volume 83fL (79-100) Mean Corpuscular Hemoglobin 28pg (25-35) Mean Corpuscular Hemoglobin Concent 33g/dL (31-37) Red Cell Distribution Width 16.6% (11.5-14.5) Platelet Count 147x10^3/uL (140-400) Neutrophils (%) (Auto) 85% (31-73) Lymphocytes (%) (Auto) 8% (24-48) Monocytes (%) (Auto) 7% (0-9) Eosinophils (%) (Auto) 0% (0-3) Basophils (%) (Auto) 0% (0-3) Neutrophils # (Auto) 16.1x10^3uL (1.8-7.7) Lymphocytes # (Auto) 1.4x10^3/uL (1.0-4.8) Monocytes # (Auto) 1.4x10^3/uL (0.0-1.1) Eosinophils # (Auto) 0.0x10^3/uL (0.0-0.7) Basophils # (Auto) 0.0x10^3/uL (0.0-0.2) TULIO FRAIRE MD Oct 27, 2016 08:15
[2016-10-27 08:25] LABS: CALCIUM 8.6 mg/dL (8.5-10.1); CREATININE 0.8 mg/dL (0.7-1.3); GFR 99.6; POTASSIUM 4.2 mmol/L (3.5-5.1)
--- NOTE | 2016-10-27 10:33 | PDOC2 ---
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 Labs significant for lipase >79439 (now 1180), CTA c/s acute pancreatitis (moderate retroperitoneal fluid is seen centered at the pancreas w/ secondary duodenal inflammation) w/ normal liver and gallbladder, admitted w/ first episode of pancreatitis. Latest LFTs bili 0.5, AST 21 ALT 30 , Alk Phos 122. WBC 18.9 (from 21.8). H/o heavy alcohol use but for >10 years has only consumed alcohol socially which he says is rare. He denies any drinking this month or last month. Generally has no issues w/ diarrhea constipation, denies hematochezia or melena, has occasional GERD treated w/ OTC meds PRN, no dysphagia, no weight loss. No previous EGD or colonoscopy although has had diverticulitis in the past. When he was admitted, pain was 8/ 10 and is currently rated 7/10 w/ [employer]PARAT[employer] CLE[employer]ER. Has been NPO. PMH: PMH: HLD, HTN, depression, arthritis, diverticulitis, bilateral inguinal hernia repairs FH: Family History: No pertinent hx (denies GI cancers) Social History: Smoke: <1 pack per day ALCOHOL: other (previosuly "drank like a fish" but for 10 years drinks rarely/ socially (denies drinking for at least two months)) Drugs: None ROS: GEN: Denies fevers, chills, sweats HEENT: Denies blurred vision, sore throat CV: Denies chest pain RESP: Denies shortness of air, cough GI: Per HPI : Denies hematuria, dysuria ENDO: Denies weight changes NEURO: Denies confusion, dizziness MSK: Denies weakness, joint pain/swelling SKIN: Denies jaundice, pruritus VItals: Vitals: Vital Signs Date Time Temp Pulse Resp B/P Pulse Ox O2 Delivery O2 Flow Rate FiO2 10/27/16 07:00 98.1 95 145/96 86 Room Air 2.0 98.1 10/27/16 03:16 20 Labs: Labs: Laboratory Tests Test 10/27/16 07:20 White Blood Count 18.9x10^3/uL (4.0-11.0) Red Blood Count 5.01x10^6/uL (4.30-5.70) Hemoglobin 13.8g/dL (13.0-17.5) Hematocrit 41.6% (39.0-53.0) Mean Corpuscular Volume 83fL (79-100) Mean Corpuscular Hemoglobin 28pg (25-35) Mean Corpuscular Hemoglobin Concent 33g/dL (31-37) Red Cell Distribution Width 16.6% (11.5-14.5) Platelet Count 147x10^3/uL (140-400) Neutrophils (%) (Auto) 85% (31-73) Lymphocytes (%) (Auto) 8% (24-48) Monocytes (%) (Auto) 7% (0-9) Eosinophils (%) (Auto) 0% (0-3) Basophils (%) (Auto) 0% (0-3) Neutrophils # (Auto) 16.1x10^3uL (1.8-7.7) Lymphocytes # (Auto) 1.4x10^3/uL (1.0-4.8) Monocytes # (Auto) 1.4x10^3/uL (0.0-1.1) Eosinophils # (Auto) 0.0x10^3/uL (0.0-0.7) Basophils # (Auto) 0.0x10^3/uL (0.0-0.2) Sodium Level 141mmol/L (136-145) Potassium Level 4.2mmol/L (3.5-5.1) Chloride Level 103mmol/L (98-107) Carbon Dioxide Level 28mmol/L (21-32) Anion Gap 10 (6-14) Blood Urea Nitrogen 13mg/dL (8-26) Creatinine 0.8mg/dL (0.7-1.3) Estimated GFR (Cockcroft-Gault) 99.6 Glucose Level 109mg/dL (70-99) Calcium Level 8.6mg/dL (8.5-10.1) Lipase 1180U/L (73-393) Allergies: Coded Allergies: No Known Drug Allergies (Unverified , 10/24/16) Medications: Current Medications Medications (Trade) Dose Ordered Sig/Gisela Route PRN Reason Start Time Stop Time Status Last Admin Dose Admin Famotidine (Pepcid) 40 mg DAILY16 IVP 10/26/16 16:00 10/26/16 18:03 Imaging: Imaging: CXR 10/24/16 IMPRESSION: Minimal right basilar atelectasis/infiltrate. CTA chest/abd/pelvis 10/24/16 FINDINGS Noncontrast images demonstrate no evidence of aortic intramural hematoma. Post- contrast images demonstrate no evidence of aortic dissection or aneurysm. Conventional 3 vessel aortic arch is present. Thoracic and abdominal aortic atherosclerosis is seen. There are 2 right renal arteries and single left renal artery. Celiac axis and superior mesenteric artery enhance appropriately. Ostium of the inferior mesenteric artery demonstrates 50 percent luminal diameter stenosis from atherosclerotic plaquing. Just inferior to the origin of the inferior mesenteric artery, there is focal 60% luminal diameter stenosis of the aorta. Iliac arteries are patent. Visualized thyroid is symmetric. Trachea and mainstem bronchi appear patent. Lungs demonstrate scattered atelectasis. Liver, spleen, gallbladder, and bilateral adrenal glands unremarkable. Bilateral kidneys enhance symmetrically. No bowel obstruction is seen. Appendix is without evidence of inflammation. Colonic diverticulosis is noted. Urinary bladder is enlarged. Given level of distention, urinary bladder wall is at the upper limits of normal. Moderate retroperitoneal fluid is seen centered at the pancreas. Findings are compatible with acute pancreatitis. There is secondary inflammation of the duodenum. Secondary to phase of enhancement, cannot assess for pancreatic necrosis or patency of the splenic vein. Degeneration is present in spine. IMPRESSION 1. Acute pancreatitis. 2. No evidence of aortic aneurysm or dissection. 3. 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 4. Focal 60 percent luminal diameter stenosis of the distal abdominal aorta. PE: GEN: NAD HEENT: Atraumatic, PERRL LUNGS: CTAB HEART: RRR ABD: some distention, epigastric tenderness, BS+ EXTREMITY: No edema SKIN: No rashes, no jaundice NEURO/PSYCH: A & O 3 A/P: A/P: Pancreatitis w/ h/o heavy alcohol use -first episode -admitted lipase >99951, now trended to 1180 -additional h/o HLD Leukocytosis - improved today GERD -very occasional, not bothersome now CRC screen -no previous colonoscopy H/o diverticulitis -- Agree w/ medical therapy, NPO, pain control. Will review w/ Dr. Mcgovern re: further imaging, labs. Outpatient screening colonoscopy. DIOGENES CONN Oct 27, 2016 10:33
[2016-10-27 11:00] VITALS: BP 166/99
[2016-10-27] MEDS: ALPRAZOLAM 0.25 MG TABLET PO PRN ×2 (11:40→19:45)
[2016-10-27] MEDS: AMLODIPINE BESYLATE 5 MG TABLET PO SCH (11:40)
[2016-10-27] MEDS: ONDANSETRON PF 4 MG/2 ML VIAL. IV PRN ×3 (11:43→22:53)
[2016-10-27] MEDS: HYDROMORPHONE STANDARD PCA 30 ML IV PRN (14:27)
[2016-10-27 15:00] VITALS: BP 169/99
[2016-10-27] MEDS: FAMOTIDINE 20 MG/2 ML VIAL IVP SCH (15:44)
[2016-10-27 19:00] VITALS: BP 169/109
[2016-10-27 23:00] VITALS: BP 142/91
[2016-10-28 03:00] VITALS: BP 165/93
[2016-10-28] MEDS: ALPRAZOLAM 0.25 MG TABLET PO PRN ×2 (03:49→20:42)
[2016-10-28] MEDS: ONDANSETRON PF 4 MG/2 ML VIAL. IV PRN ×2 (03:49→21:29)
[2016-10-28] MEDS: IV DEXTROSE 5 %-0.45 % NACL 1,000 ML IV SCH ×3 (03:50→22:55)
[2016-10-28] MEDS: HYDROMORPHONE STANDARD PCA 30 ML IV PRN ×2 (04:54→20:53)
[2016-10-28 07:00] VITALS: BP 137/65
[2016-10-28] MEDS: AMLODIPINE BESYLATE 5 MG TABLET PO SCH (08:47)
--- NOTE | 2016-10-28 09:27 | PDOC ---
PROGRESS NOTES Subjective Subjective Pt awake and pleasant. States pain is improved, however pt still using MUD BOSS frequently. Pt states he does not have an appetite and his nausea comes and goes. Pt states Zofran is helping. Objective Objective Pt awake and alert. NAD at rest. VSS. BP improved. Lungs CTA bilat. Resp even and unlabored. Pt on 2L of O2 per NC. Heart with RRR. No murmurs. No pedal edema. Vital Signs Date Time Temp Pulse Resp B/P Pulse Ox O2 Delivery O2 Flow Rate FiO2 10/28/16 08:47 85 137/65 10/28/16 07:00 97.7 20 89 Nasal Cannula 2.0 97.7 Intake and Output 10/28/16 07:00 Intake Total 2000 ml Balance 2000 ml Intake Oral 0 ml IV Total 2000 ml Assessment Assessment Problems Medical Problems: (1) Abdominal pain Status: Acute (2) Leukocytosis Status: Acute (3) Pancreatitis Status: Acute Plan Plan of Care 1. Acute pancreatitis with hx of alcoholism -Lipase 43K upon admission, 1100 this am. Continue daily checks. -WBC 21.8 upon admission. 18.9 this am, trending down -Pain controlled with MUD BOSS Dilaudid -Ongoing nausea controlled with Zofran prn -GI consulting Comment Review of Relevant I have reviewed the following items sathya (where applicable) has been applied. Labs Laboratory Tests Test 10/27/16 07:20 White Blood Count 18.9x10^3/uL (4.0-11.0) Red Blood Count 5.01x10^6/uL (4.30-5.70) Hemoglobin 13.8g/dL (13.0-17.5) Hematocrit 41.6% (39.0-53.0) Mean Corpuscular Volume 83fL (79-100) Mean Corpuscular Hemoglobin 28pg (25-35) Mean Corpuscular Hemoglobin Concent 33g/dL (31-37) Red Cell Distribution Width 16.6% (11.5-14.5) Platelet Count 147x10^3/uL (140-400) Neutrophils (%) (Auto) 85% (31-73) Lymphocytes (%) (Auto) 8% (24-48) Monocytes (%) (Auto) 7% (0-9) Eosinophils (%) (Auto) 0% (0-3) Basophils (%) (Auto) 0% (0-3) Neutrophils # (Auto) 16.1x10^3uL (1.8-7.7) Lymphocytes # (Auto) 1.4x10^3/uL (1.0-4.8) Monocytes # (Auto) 1.4x10^3/uL (0.0-1.1) Eosinophils # (Auto) 0.0x10^3/uL (0.0-0.7) Basophils # (Auto) 0.0x10^3/uL (0.0-0.2) Sodium Level 141mmol/L (136-145) Potassium Level 4.2mmol/L (3.5-5.1) Chloride Level 103mmol/L (98-107) Carbon Dioxide Level 28mmol/L (21-32) Anion Gap 10 (6-14) Blood Urea Nitrogen 13mg/dL (8-26) Creatinine 0.8mg/dL (0.7-1.3) Estimated GFR (Cockcroft-Gault) 99.6 Glucose Level 109mg/dL (70-99) Calcium Level 8.6mg/dL (8.5-10.1) Lipase 1180U/L (73-393) Medications Current Medications Aspirin (Children'S Aspirin) 324 mg 1X ONCE PO ; Start 10/24/16 at 20:30; Stop 10/24/16 at 20:31; Status DC Nitroglycerin (Nitrostat) 0.4 mg PRN Q5MIN PRN SL CHEST PAIN Last administered on 10/24/16 20:32; Start 10/24/16 at 20:30 Morphine Sulfate 2 mg PRN Q1HR PRN IV SEVERE PAIN Last administered on 08:03; Start 10/24/16 at 20:30; Stop 10/25/16 at 08:03; Status DC Iohexol (Omnipaque 350 Mg/ml) 90 ml 1X ONCE IV Last administered on 10/24/16 21:48; Start 10/24/16 at 21:30; Stop 10/24/16 at 21:31; Status DC Info (Do NOT chart on this entry -- for MONITORING) 1 each PRN DAILY PRN MC SEE COMMENTS; Start 10/24/16 at 21:15; Stop 10/26/16 at 21:14; Status DC Hydromorphone HCl (Dilaudid) 1 mg 1X ONCE IV Last administered on 10/24/16 21 :31; Start 10/24/16 at 21:45; Stop 10/24/16 at 21:46; Status DC Hydromorphone HCl (Dilaudid) 0.5 mg PRN Q1HR PRN IV SEVERE PAIN Last administered on 10/25/16 05:01; Start 10/24/16 at 21:30; Stop 10/25/16 at 05:01 ; Status DC Ondansetron HCl (Zofran) 4 mg 1X ONCE IV Last administered on 10/24/16 21:31 ; Start 10/24/16 at 21:45; Stop 10/24/16 at 21:46; Status DC Ondansetron HCl (Zofran) 4 mg PRN Q8HRS PRN IV NAUSEA/VOMITING Last administered on 10/25/16 09:30; Start 10/24/16 at 23:00; Stop 10/25/16 at 22:59 ; Status DC Morphine Sulfate 2 mg PRN Q2HR PRN IV SEVERE PAIN; Start 10/24/16 at 23:00; Stop 10/25/16 at 22:59; Status DC Fentanyl Citrate 50 mcg 50 mcg PRN Q2HR PRN IV SEVERE PAIN Last administered on 10/25/16 14:31; Start 10/24/16 at 23:00; Stop 10/25/16 at 22:59; Status DC Sodium Chloride (Iv Sodium Chloride 0.9% 1000ml Bag) 1,000 ml @ 100 mls/hr 1X ONCE IV Last administered on 10/24/16 23:53; Start 10/24/16 at 23:45; Stop at 09:44; Status DC Dicyclomine HCl (Bentyl) 10 mg 1X ONCE IM Last administered on 10/24/16 23:43 ; Start 10/25/16 at 00:00; Stop 10/25/16 at 00:01; Status DC Labetalol HCl (Normodyne) 20 mg PRN Q2HR PRN IVP HYPERTENSION, SEE COMMENTS; Start 10/25/16 at 09:00 Hydromorphone HCl (Dilaudid) 1 mg Q1HR PRN IV PAIN; Start 10/25/16 at 09:30; Stop 10/25/16 at 09:30; Status DC Hydromorphone HCl 1 mg 1 mg PRN Q1HR PRN IV PAIN Last administered on 12:26; Start 10/25/16 at 09:31; Stop 10/25/16 at 13:05; Status DC Magnesium Sulfate/ Dextrose (Magnesium Sulfate PREMIX 2GM) 50 ml @ 25 mls/hr 1X ONCE IV Last administered on 10/25/16 15:45; Start 10/25/16 at 13:00; Stop 10/25/16 at 14:59; Status DC Fluoxetine HCl (Prozac) 20 mg HS PO ; Start 10/25/16 at 21:00; Stop 10/25/16 at 21:00; Status DC Pramipexole Dihydrochloride (miraPEX) 0.25 mg QHS PO ; Start 10/25/16 at 21:00; Stop 10/25/16 at 21:00; Status DC Zolpidem Tartrate (Ambien) 5 mg QHS PO ; Start 10/25/16 at 21:00; Stop 10/25/16 at 21:00; Status DC Zolpidem Tartrate 5 mg 5 mg PRN QHS PRN PO INSOMNIA; Start 10/25/16 at 13:00; Stop 10/25/16 at 13:05; Status DC Hydromorphone HCl (Dilaudid Standard MUD BOSS) 30 ml @ 0 mls/hr CONT PRN PRN IV PROTOCOL Last administered on 10/28/16 04:54; Start 10/25/16 at 13:00 Lorazepam 1 mg 1 mg PRN Q4HRS PRN IV ANXIETY / AGITATION Last administered on 20:31; Start 10/25/16 at 13:00 Dextrose/Sodium Chloride (Iv D5% - 1/2 NS) 1,000 ml @ 150 mls/hr Q6H40M IV Last administered on 10/28/16 03:50; Start 10/25/16 at 13:00 Ondansetron HCl (Zofran) 4 mg PRN Q4HRS PRN IV NAUSEA/VOMITING Last administered on 10/28/16 03:49; Start 10/25/16 at 13:45 Famotidine (Pepcid) 40 mg DAILY16 IVP Last administered on 10/27/16 15:44; Start 10/26/16 at 16:00 Amlodipine Besylate (Norvasc) 5 mg DAILY PO Last administered on 10/28/16 08: 47; Start 10/27/16 at 09:00 Ondansetron HCl (Zofran) 4 mg PRN Q6HRS PRN IV NAUSEA/VOMITING; Start 10/27/16 at 08:15; Stop 10/27/16 at 14:47; Status DC Alprazolam (Xanax) 0.5 mg PRN Q8HRS PRN PO ANXIETY / AGITATION Last administered on 10/28/16 03:49; Start 10/27/16 at 08:15 Active Scripts Active Reported Prestalia 7 mg-5 mg Tablet (Perindopril Arg/Amlodipine Bes) 1 Each Tablet 1 Each PO Zolpidem Tartrate 10 Mg Tablet 1 Tab PO QHS Prozac (Fluoxetine Hcl) 20 Mg Capsule 1 Cap PO HS Mirapex (Pramipexole Di-Hcl) 0.25 Mg Tablet 1 Tab PO QHS Pravastatin Sodium 20 Mg Tablet 1 Tab PO QHS Hydrochlorothiazide Tablet (Hydrochlorothiazide) 12.5 Mg Tablet 1 Tab PO DAILY Vitals/I & O Vital Sign - Last 24 Hours 10/27/16 10/27/16 10/27/16 10/27/16 11:00 11:40 14:27 15:00 Temp 97.9 99.5 97.9 99.5 Pulse 93 93 91 B/P 166/99 166/99 169/99 Pulse Ox 90 90 92 O2 Delivery Nasal Cannula Nasal Cannula O2 Flow Rate 2.0 2.0 10/27/16 10/27/16 10/27/16 10/28/16 19:00 19:10 23:00 03:00 Temp 97.7 99.0 98.1 97.7 99.0 98.1 Pulse 99 93 92 Resp 18 18 18 B/P 169/109 142/91 165/93 Pulse Ox 91 91 93 O2 Delivery Nasal Cannula Room Air Nasal Cannula Nasal Cannula O2 Flow Rate 2.0 2.0 2.0 10/28/16 10/28/16 10/28/16 10/28/16 04:54 05:20 07:00 08:47 Temp 97.7 97.7 Pulse 84 85 Resp 16 16 20 B/P 137/65 137/65 Pulse Ox 93 93 89 O2 Delivery Room Air Room Air Nasal Cannula O2 Flow Rate 2.0 2.0 2.0 Intake and Output 10/27/16 10/27/16 10/28/16 15:00 23:00 07:00 Intake Total 1000 ml 1000 ml Balance 1000 ml 1000 ml TULIO FRAIRE MD Oct 28, 2016 09:27
[2016-10-28 11:00] VITALS: BP 138/83
[2016-10-28 11:54] LABS: BASO % 0 % (0-3); EOS % 0 % (0-3); HEMATOCRIT 41.9 % (39.0-53.0); HEMOGLOBIN 13.8 g/dL (13.0-17.5); LYMPH # 1.2 x10^3/uL (1.0-4.8); LYMPH % 8 % (24-48); MEAN CORPUSCULAR HEMOGLOBIN 28 pg (25-35); MEAN CORPUSCULAR HGB CONC 33 g/dL (31-37); MEAN CORPUSCULAR VOLUME 84 fL (79-100); MONO % 8 % (0-9); NEUT % 84 % (31-73); PLATELET COUNT 154 x10^3/uL (140-400); RED BLOOD COUNT 5.01 x10^6/uL (4.30-5.70); RED CELL DISTRIBUTION WIDTH 16.3 % (11.5-14.5); WHITE BLOOD COUNT 15.9 x10^3/uL (4.0-11.0)
--- NOTE | 2016-10-28 13:10 | PDOC ---
Subjective: Subjective: Uncomfortable w/ distention. Occasionally burps, no flatus/BM. Still using SUSTAINABLE DESIGN CONSULTANT. Ice chips. Objective: Vital Signs: Vital Signs Date Time Temp Pulse Resp B/P Pulse Ox O2 Delivery O2 Flow Rate FiO2 10/28/16 11:00 97.5 91 19 138/83 85 Nasal Cannula 2.0 97.5 Labs: Laboratory Tests Test 10/28/16 10:00 White Blood Count 15.9x10^3/uL Red Blood Count 5.01x10^6/uL Hemoglobin 13.8g/dL Hematocrit 41.9% Mean Corpuscular Volume 84fL Mean Corpuscular Hemoglobin 28pg Mean Corpuscular Hemoglobin Concent 33g/dL Red Cell Distribution Width 16.3% Platelet Count 154x10^3/uL Neutrophils (%) (Auto) 84% Lymphocytes (%) (Auto) 8% Monocytes (%) (Auto) 8% Eosinophils (%) (Auto) 0% Basophils (%) (Auto) 0% Neutrophils # (Auto) 13.4x10^3uL Lymphocytes # (Auto) 1.2x10^3/uL Monocytes # (Auto) 1.3x10^3/uL Eosinophils # (Auto) 0.1x10^3/uL Basophils # (Auto) 0.0x10^3/uL Lipase 484U/L PE: GEN: NAD LUNGS: CTAB anteriorly HEART: RRR ABD: distended, epigastric discomfort, ?BS - quiet NEURO/PSYCH: A & O 3 A/P: Pancreatitis -first episode, likely related to alcohol -admitted lipase >11618, today to 484 Leukocytosis - improving Abd distention -- Improving lipase and WBC but still uncomfortable. Continue ice chips before advancing to clears. Will check KUB. DIOGENES CONN Oct 28, 2016 13:10
[2016-10-28 15:00] VITALS: BP 149/92
--- NOTE | 2016-10-28 15:05 | RAD ---
Indication: Abdominal distention and decreased bowel sounds. Time of exam 1450 hours. Mild gaseous distention of small bowel loops in the central abdomen are identified. The colon appears to be decompressed. No bowel wall thickening is detected. No pneumatosis is identified. No pathologic calcifications are identified. Impression: Nonspecific mild gaseous distention of small bowel loops in the central abdomen. Continued progress films could be obtained.
[2016-10-28] MEDS: FAMOTIDINE 20 MG/2 ML VIAL IVP SCH (16:39)
[2016-10-28 19:00] VITALS: BP 149/93
[2016-10-28 23:00] VITALS: BP 172/108
[2016-10-29] VITALS (8 sets, daily range): BP systolic 144–182; BP diastolic 83–107
[2016-10-29] MEDS: IV DEXTROSE 5 %-0.45 % NACL 1,000 ML IV SCH ×3 (04:38→21:11)
[2016-10-29] MEDS: AMLODIPINE BESYLATE 5 MG TABLET PO SCH (09:15)
--- NOTE | 2016-10-29 09:55 | PDOC ---
PROGRESS NOTES Subjective Subjective Pt awake and pleasant. States abdominal pain has improved, however is still present. Rates pain 3/10 on current pain regimen. Pt states his appetite is returning. Pt with c/o blood in urine. Denies buring or frequency with urination. Objective Objective Pt awake and alert. NAD. VSS. Afebrile. Lungs CTA bilat. Resp even and unlabored. Heart with RRR. No murmurs. No pedal edema. Abdomen tender throughout. Vital Signs Date Time Temp Pulse Resp B/P Pulse Ox O2 Delivery O2 Flow Rate FiO2 10/29/16 09:15 80 159/98 10/29/16 07:00 97.7 20 91 Nasal Cannula 2.0 97.7 Intake and Output 10/29/16 07:00 Intake Total 0 ml Output Total 1350 ml Balance -1350 ml Intake Oral 0 ml Output Urine Total 1350 ml Assessment Assessment Problems Medical Problems: (1) Abdominal pain Status: Acute (2) Leukocytosis Status: Acute (3) Pancreatitis Status: Acute Plan Plan of Care 1. Acute pancreatitis with hx of alcoholism -Lipase 43K upon admission, 444 this am. Continue daily checks. -WBC 21.8 upon admission. 15.9 this am, trending down -Pain controlled with STEWARD/STEWARDESS DECK Dilaudid -Ongoing nausea controlled with Zofran prn -GI consulting -Ice chips only secondary to abd discomfort -KUB on 10/28: "Nonspecific mild gaseous distention of small bowel loops in the central abdomen. Continued progress films could be obtained." 2. Hematuria -Check UA with C and S if indicated Comment Review of Relevant I have reviewed the following items sathya (where applicable) has been applied. Labs Laboratory Tests Test 10/28/16 10:00 10/29/16 05:45 White Blood Count 15.9x10^3/uL (4.0-11.0) Red Blood Count 5.01x10^6/uL (4.30-5.70) Hemoglobin 13.8g/dL (13.0-17.5) Hematocrit 41.9% (39.0-53.0) Mean Corpuscular Volume 84fL (79-100) Mean Corpuscular Hemoglobin 28pg (25-35) Mean Corpuscular Hemoglobin Concent 33g/dL (31-37) Red Cell Distribution Width 16.3% (11.5-14.5) Platelet Count 154x10^3/uL (140-400) Neutrophils (%) (Auto) 84% (31-73) Lymphocytes (%) (Auto) 8% (24-48) Monocytes (%) (Auto) 8% (0-9) Eosinophils (%) (Auto) 0% (0-3) Basophils (%) (Auto) 0% (0-3) Neutrophils # (Auto) 13.4x10^3uL (1.8-7.7) Lymphocytes # (Auto) 1.2x10^3/uL (1.0-4.8) Monocytes # (Auto) 1.3x10^3/uL (0.0-1.1) Eosinophils # (Auto) 0.1x10^3/uL (0.0-0.7) Basophils # (Auto) 0.0x10^3/uL (0.0-0.2) Lipase 484U/L (73-393) 444U/L (73-393) Laboratory Tests Test 10/28/16 10:00 10/29/16 05:45 White Blood Count 15.9x10^3/uL (4.0-11.0) Red Blood Count 5.01x10^6/uL (4.30-5.70) Hemoglobin 13.8g/dL (13.0-17.5) Hematocrit 41.9% (39.0-53.0) Mean Corpuscular Volume 84fL (79-100) Mean Corpuscular Hemoglobin 28pg (25-35) Mean Corpuscular Hemoglobin Concent 33g/dL (31-37) Red Cell Distribution Width 16.3% (11.5-14.5) Platelet Count 154x10^3/uL (140-400) Neutrophils (%) (Auto) 84% (31-73) Lymphocytes (%) (Auto) 8% (24-48) Monocytes (%) (Auto) 8% (0-9) Eosinophils (%) (Auto) 0% (0-3) Basophils (%) (Auto) 0% (0-3) Neutrophils # (Auto) 13.4x10^3uL (1.8-7.7) Lymphocytes # (Auto) 1.2x10^3/uL (1.0-4.8) Monocytes # (Auto) 1.3x10^3/uL (0.0-1.1) Eosinophils # (Auto) 0.1x10^3/uL (0.0-0.7) Basophils # (Auto) 0.0x10^3/uL (0.0-0.2) Lipase 484U/L (73-393) 444U/L (73-393) Medications Current Medications Aspirin (Children'S Aspirin) 324 mg 1X ONCE PO ; Start 10/24/16 at 20:30; Stop 10/24/16 at 20:31; Status DC Nitroglycerin (Nitrostat) 0.4 mg PRN Q5MIN PRN SL CHEST PAIN Last administered on 10/24/16 20:32; Start 10/24/16 at 20:30 Morphine Sulfate 2 mg PRN Q1HR PRN IV SEVERE PAIN Last administered on 08:03; Start 10/24/16 at 20:30; Stop 10/25/16 at 08:03; Status DC Iohexol (Omnipaque 350 Mg/ml) 90 ml 1X ONCE IV Last administered on 10/24/16 21:48; Start 10/24/16 at 21:30; Stop 10/24/16 at 21:31; Status DC Info (Do NOT chart on this entry -- for MONITORING) 1 each PRN DAILY PRN MC SEE COMMENTS; Start 10/24/16 at 21:15; Stop 10/26/16 at 21:14; Status DC Hydromorphone HCl (Dilaudid) 1 mg 1X ONCE IV Last administered on 10/24/16 21 :31; Start 10/24/16 at 21:45; Stop 10/24/16 at 21:46; Status DC Hydromorphone HCl (Dilaudid) 0.5 mg PRN Q1HR PRN IV SEVERE PAIN Last administered on 10/25/16 05:01; Start 10/24/16 at 21:30; Stop 10/25/16 at 05:01 ; Status DC Ondansetron HCl (Zofran) 4 mg 1X ONCE IV Last administered on 10/24/16 21:31 ; Start 10/24/16 at 21:45; Stop 10/24/16 at 21:46; Status DC Ondansetron HCl (Zofran) 4 mg PRN Q8HRS PRN IV NAUSEA/VOMITING Last administered on 10/25/16 09:30; Start 10/24/16 at 23:00; Stop 10/25/16 at 22:59 ; Status DC Morphine Sulfate 2 mg PRN Q2HR PRN IV SEVERE PAIN; Start 10/24/16 at 23:00; Stop 10/25/16 at 22:59; Status DC Fentanyl Citrate 50 mcg 50 mcg PRN Q2HR PRN IV SEVERE PAIN Last administered on 10/25/16 14:31; Start 10/24/16 at 23:00; Stop 10/25/16 at 22:59; Status DC Sodium Chloride (Iv Sodium Chloride 0.9% 1000ml Bag) 1,000 ml @ 100 mls/hr 1X ONCE IV Last administered on 10/24/16 23:53; Start 10/24/16 at 23:45; Stop at 09:44; Status DC Dicyclomine HCl (Bentyl) 10 mg 1X ONCE IM Last administered on 10/24/16 23:43 ; Start 10/25/16 at 00:00; Stop 10/25/16 at 00:01; Status DC Labetalol HCl (Normodyne) 20 mg PRN Q2HR PRN IVP HYPERTENSION, SEE COMMENTS; Start 10/25/16 at 09:00 Hydromorphone HCl (Dilaudid) 1 mg Q1HR PRN IV PAIN; Start 10/25/16 at 09:30; Stop 10/25/16 at 09:30; Status DC Hydromorphone HCl 1 mg 1 mg PRN Q1HR PRN IV PAIN Last administered on 12:26; Start 10/25/16 at 09:31; Stop 10/25/16 at 13:05; Status DC Magnesium Sulfate/ Dextrose (Magnesium Sulfate PREMIX 2GM) 50 ml @ 25 mls/hr 1X ONCE IV Last administered on 10/25/16 15:45; Start 10/25/16 at 13:00; Stop 10/25/16 at 14:59; Status DC Fluoxetine HCl (Prozac) 20 mg HS PO ; Start 10/25/16 at 21:00; Stop 10/25/16 at 21:00; Status DC Pramipexole Dihydrochloride (miraPEX) 0.25 mg QHS PO ; Start 10/25/16 at 21:00; Stop 10/25/16 at 21:00; Status DC Zolpidem Tartrate (Ambien) 5 mg QHS PO ; Start 10/25/16 at 21:00; Stop 10/25/16 at 21:00; Status DC Zolpidem Tartrate 5 mg 5 mg PRN QHS PRN PO INSOMNIA; Start 10/25/16 at 13:00; Stop 10/25/16 at 13:05; Status DC Hydromorphone HCl (Dilaudid Standard STEWARD/STEWARDESS DECK) 30 ml @ 0 mls/hr CONT PRN PRN IV PROTOCOL Last administered on 10/28/16 20:53; Start 10/25/16 at 13:00 Lorazepam 1 mg 1 mg PRN Q4HRS PRN IV ANXIETY / AGITATION Last administered on 20:31; Start 10/25/16 at 13:00 Dextrose/Sodium Chloride (Iv D5% - 1/2 NS) 1,000 ml @ 150 mls/hr Q6H40M IV Last administered on 10/29/16 04:38; Start 10/25/16 at 13:00 Ondansetron HCl (Zofran) 4 mg PRN Q4HRS PRN IV NAUSEA/VOMITING Last administered on 10/28/16 21:29; Start 10/25/16 at 13:45 Famotidine (Pepcid) 40 mg DAILY16 IVP Last administered on 10/28/16 16:39; Start 10/26/16 at 16:00 Amlodipine Besylate (Norvasc) 5 mg DAILY PO Last administered on 10/29/16 09: 15; Start 10/27/16 at 09:00 Ondansetron HCl (Zofran) 4 mg PRN Q6HRS PRN IV NAUSEA/VOMITING; Start 10/27/16 at 08:15; Stop 10/27/16 at 14:47; Status DC Alprazolam (Xanax) 0.5 mg PRN Q8HRS PRN PO ANXIETY / AGITATION Last administered on 10/28/16 20:42; Start 10/27/16 at 08:15 Active Scripts Active Reported Prestalia 7 mg-5 mg Tablet (Perindopril Arg/Amlodipine Bes) 1 Each Tablet 1 Each PO Zolpidem Tartrate 10 Mg Tablet 1 Tab PO QHS Prozac (Fluoxetine Hcl) 20 Mg Capsule 1 Cap PO HS Mirapex (Pramipexole Di-Hcl) 0.25 Mg Tablet 1 Tab PO QHS Pravastatin Sodium 20 Mg Tablet 1 Tab PO QHS Hydrochlorothiazide Tablet (Hydrochlorothiazide) 12.5 Mg Tablet 1 Tab PO DAILY Vitals/I & O Vital Sign - Last 24 Hours 10/28/16 10/28/16 10/28/16 10/28/16 11:00 15:00 19:00 20:00 Temp 97.5 97.7 99.7 97.5 97.7 99.7 Pulse 91 78 87 Resp 19 19 20 B/P 138/83 149/92 149/93 Pulse Ox 85 90 91 O2 Delivery Nasal Cannula Nasal Cannula Nasal Cannula Nasal Cannula O2 Flow Rate 2.0 2.0 2.0 2.0 10/28/16 10/28/16 10/28/16 10/29/16 20:53 21:23 23:00 03:00 Temp 97.9 97.5 97.9 97.5 Pulse 87 77 Resp 20 20 B/P 172/108 146/94 Pulse Ox 91 93 O2 Delivery Nasal Cannula Nasal Cannula Nasal Cannula Nasal Cannula O2 Flow Rate 2.0 2.0 2.0 2.0 10/29/16 10/29/16 07:00 09:15 Temp 97.7 97.7 Pulse 80 80 Resp 20 B/P 159/98 159/98 Pulse Ox 91 O2 Delivery Nasal Cannula O2 Flow Rate 2.0 Intake and Output 10/28/16 10/28/16 10/29/16 15:00 23:00 07:00 Intake Total 0 ml 0 ml Output Total 1050 ml 300 ml Balance -1050 ml -300 ml TULIO FRAIRE MD Oct 29, 2016 09:55
--- NOTE | 2016-10-29 12:32 | PDOC ---
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 Vital Signs: Vital Signs Date Time Temp Pulse Resp B/P Pulse Ox O2 Delivery O2 Flow Rate FiO2 10/29/16 11:00 98.2 83 20 182/104 89 Nasal Cannula 2.0 98.2 Labs: Laboratory Tests Test 10/29/16 05:45 Lipase 444U/L Imaging: KUB 10/28/16 Impression: Nonspecific mild gaseous distention of small bowel loops in the central abdomen. Continued progress films could be obtained. PE: GEN: NAD LUNGS: CTAB anteriorly HEART: RRR ABD: BS+ (better today), epigastric pain to light palpation NEURO/PSYCH: A & O 3 A/P: Pancreatitis -CT 10/24: moderate retroperitoneal fluid is seen centered at the pancreas -first episode, likely related to alcohol -admitted w/ lipase >[id number], today to 444 Leukocytosis - improving (last checked 10/28) Epigastric pain - "pain is back" -still requiring BIOLOGICAL SCIENCES INSTRUCTOR -- Labs improving but pt reports pain is ongoing/worse. Will check interval CT prior to trial of clear liquids r/o pseudocyst, necrosis. Labs tomorrow. DIOGENES CONN Oct 29, 2016 12:32
[2016-10-29] MEDS ORDERED: IOHEXOL 300 MG/ML 75 ML VIAL IV ONE (12:45)
[2016-10-29] MEDS ORDERED: CONTRAST GIVEN MC PRN (12:45)
[2016-10-29] MEDS ORDERED: IOHEXOL 240 MG/ML 50ML VIAL. PO ONE (12:45)
--- NOTE | 2016-10-29 14:47 | RAD ---
Indication: Epigastric pain and pancreatitis. Axial imaging through the abdomen and pelvis was performed after the administration of intravenous contrast. Comparison is made with recent CT from 10/24/2016. There has been development of a small left pleural effusion. There is associated bibasilar infiltrates or atelectasis that have also increased since prior exam. No discrete liver mass is detected. There has been an increase in the perihepatic ascites since prior exam. The gallbladder is unremarkable. There's been development of moderate fluid anterior to the pancreatic body. This commences near the greater curvature of the stomach and extends along the anterior aspect of the pancreas. Lesser defined fluid extends into the left abdomen just inferior to the spleen and adjacent to the descending colon. The larger collection measures approximately 17.8 cm transverse x 7.2 cm cephalocaudal x 7.3 cm AP. This is suggestive of a pancreatic pseudocyst. The pancreatic parenchyma demonstrates homogeneous enhancement. No necrosis is identified. No abnormal gas collection is detected. There is some perisplenic ascites present as well. No adrenal mass is identified. Punctate densities in both kidneys are noted suggestive of nonobstructing calculi. The aorta is nonaneurysmal. Small and large bowel loops appear normal caliber. There is sigmoid diverticulosis. There is some wall thickening involving the descending colon mid aspect. This could be on the basis of acute diverticulitis versus a secondary inflammation from pancreatitis. There is some free fluid in the pelvis. Impression: 1. Development of small left pleural effusion and bibasilar infiltrates or atelectasis. 2. Worsening abdominal and pelvic free fluid with fluid collection noted adjacent to the anterior pancreas and lesser sac region suggestive of pancreatic pseudocyst. No pancreatic necrosis is identified. 3. Diverticulosis. There is wall thickening of the descending colon consistent with either acute diverticulitis or secondary inflammation from adjacent pancreatitis. PQRS Compliance Statement: One or more of the following individualized dose reduction techniques were utilized for this examination: 1. Automated exposure control 2. Adjustment of the mA and/or kV according to patient size 3. Use of iterative reconstruction technique
[2016-10-29] MEDS: ONDANSETRON PF 4 MG/2 ML VIAL. IV PRN ×2 (15:31→21:16)
[2016-10-29 15:49] LABS: BILIRUBIN,URINE MODERATE (NEG); GLUCOSE,URINE NEGATIVE (NEG); NITRITE,URINE NEGATIVE (NEG); PH,URINE 6.5; PROTEIN,URINE 30 mg/dL (NEG-TRACE)
[2016-10-29 16:13] LABS: BACTERIA,URINE 0 /HPF (0-FEW); SQUAMOUS EPITHELIAL CELL,UR OCC /LPF; WBC,URINE OCC /HPF (0-4)
[2016-10-29] MEDS: FAMOTIDINE 20 MG/2 ML VIAL IVP SCH (16:23)
[2016-10-29] MEDS: HYDROMORPHONE STANDARD PCA 30 ML IV PRN (18:16)
[2016-10-29] MEDS: ALPRAZOLAM 0.25 MG TABLET PO PRN (21:10)
[2016-10-30] MEDS: LORAZEPAM 2 MG/ML VIAL IV PRN (02:27)
[2016-10-30] MEDS: ONDANSETRON PF 4 MG/2 ML VIAL. IV PRN (04:05)
[2016-10-30 05:40] LABS: BASO # 0.1 x10^3/uL (0.0-0.2); BASO % 1 % (0-3); EOS % 2 % (0-3); HEMATOCRIT 40.2 % (39.0-53.0); HEMOGLOBIN 13.6 g/dL (13.0-17.5); LYMPH # 1.3 x10^3/uL (1.0-4.8); LYMPH % 8 % (24-48); MEAN CORPUSCULAR HEMOGLOBIN 28 pg (25-35); MEAN CORPUSCULAR HGB CONC 34 g/dL (31-37); MEAN CORPUSCULAR VOLUME 82 fL (79-100); MONO % 10 % (0-9); NEUT % 80 % (31-73); PLATELET COUNT 192 x10^3/uL (140-400); RED BLOOD COUNT 4.92 x10^6/uL (4.30-5.70); RED CELL DISTRIBUTION WIDTH 16.1 % (11.5-14.5); WHITE BLOOD COUNT 16.5 x10^3/uL (4.0-11.0)
[2016-10-30] MEDS: IV DEXTROSE 5 %-0.45 % NACL 1,000 ML IV SCH ×4 (05:52→19:12)
[2016-10-30 06:22] LABS: ALBUMIN 2.2 g/dL (3.4-5.0); ALBUMIN/GLOBULIN RATIO 0.6 (1.0-1.7); CALCIUM 8.3 mg/dL (8.5-10.1); CREATININE 0.7 mg/dL (0.7-1.3); GFR 116.2; TOTAL BILIRUBIN 1.5 mg/dL (0.2-1.0); TOTAL PROTEIN 5.9 g/dL (6.4-8.2)
[2016-10-30 06:23] LABS: POTASSIUM 2.6 mmol/L (3.5-5.1)
[2016-10-30 07:00] VITALS: BP 149/91
--- NOTE | 2016-10-30 07:20 | RAD ---
Indication: PICC line placement. Time of exam 3:48 AM Correlation is made with prior study from 10/24/2016. A right upper extremity PICC line has the tip at the SVC right atrial junction. Right hemidiaphragm is mildly elevated. There is mild bibasilar scarring or subsegmental atelectasis. No effusion is seen. There is no pneumothorax. Impression: PICC line placement, as described.
[2016-10-30] MEDS: AMLODIPINE BESYLATE 5 MG TABLET PO SCH (08:14)
--- NOTE | 2016-10-30 10:31 | PDOC ---
PROGRESS NOTES Subjective Subjective Pt awake and pleasant. Continues to c/o abdominal discomfort and some nausea. States pain and antinausea medications do help. Objective Objective Pt awake and alert. NAD. VSS. Afebrile. Lungs CTA bilat. Resp even and unlabored. Heart with RRR. No murmurs. Abdomen soft, nondistended, and tender throughout. Vital Signs Date Time Temp Pulse Resp B/P Pulse Ox O2 Delivery O2 Flow Rate FiO2 10/30/16 08:14 78 149/91 10/30/16 07:00 97.5 20 88 Nasal Cannula 2.0 97.5 Intake and Output 10/30/16 07:00 Intake Total 50 ml Output Total 575 ml Balance -525 ml Intake Oral 50 ml Output Urine Total 575 ml # Voids 1 Assessment Assessment Problems Medical Problems: (1) Abdominal pain Status: Acute (2) Leukocytosis Status: Acute (3) Pancreatitis Status: Acute Plan Plan of Care 1. Acute pancreatitis with hx of alcoholism -GI consulting -Lipase 43K upon admission, 344 this am. -WBC 21.8 upon admission. 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 Continued progress films could be obtained." -CT on 10/29: pancreatic pseudocyst -PICC placed for probable initiation of PPN - will follow GIs lead on dietary intake. 2. Hematuria -UA negative for leukocytes, small amt of blood present 3. Hypokalemia -Administer 20mEq KCl per IV. Recheck BMP 2 hours post. If K less than 3.2, repeat dosing -Recheck BMP in am. Comment Review of Relevant I have reviewed the following items sathya (where applicable) has been applied. Labs Laboratory Tests Test 10/29/16 05:45 10/29/16 15:25 10/30/16 05:00 Lipase 444U/L (73-393) 349U/L (73-393) Urine Color Rylee Urine Clarity Clear Urine pH 6.5 Urine Specific [place] >=1.030 Urine Protein 30mg/dL (NEG-TRACE) Urine Glucose (UA) Negativemg/dL (NEG) Urine Ketones (Stick) Negativemg/dL (NEG) Urine Blood Small (NEG) Urine Nitrite Negative (NEG) Urine Bilirubin Moderate (NEG) Urine Urobilinogen Dipstick 2.0mg/dL (0.2 mg/dL) Urine Leukocyte Esterase Negative (NEG) Urine RBC 3-5/HPF (0-2) Urine WBC Occ/HPF (0-4) Urine Squamous Epithelial Cells Occ/LPF Urine Bacteria 0/HPF (0-FEW) White Blood Count 16.5x10^3/uL (4.0-11.0) Red Blood Count 4.92x10^6/uL (4.30-5.70) Hemoglobin 13.6g/dL (13.0-17.5) Hematocrit 40.2% (39.0-53.0) Mean Corpuscular Volume 82fL (79-100) Mean Corpuscular Hemoglobin 28pg (25-35) Mean Corpuscular Hemoglobin Concent 34g/dL (31-37) Red Cell Distribution Width 16.1% (11.5-14.5) Platelet Count 192x10^3/uL (140-400) Neutrophils (%) (Auto) 80% (31-73) Lymphocytes (%) (Auto) 8% (24-48) Monocytes (%) (Auto) 10% (0-9) Eosinophils (%) (Auto) 2% (0-3) Basophils (%) (Auto) 1% (0-3) Neutrophils # (Auto) 13.2x10^3uL (1.8-7.7) Lymphocytes # (Auto) 1.3x10^3/uL (1.0-4.8) Monocytes # (Auto) 1.6x10^3/uL (0.0-1.1) Eosinophils # (Auto) 0.3x10^3/uL (0.0-0.7) Basophils # (Auto) 0.1x10^3/uL (0.0-0.2) Sodium Level 133mmol/L (136-145) Potassium Level 2.6mmol/L (3.5-5.1) Chloride Level 93mmol/L (98-107) Carbon Dioxide Level 31mmol/L (21-32) Anion Gap 9 (6-14) Blood Urea Nitrogen 4mg/dL (8-26) Creatinine 0.7mg/dL (0.7-1.3) Estimated GFR (Cockcroft-Gault) 116.2 BUN/Creatinine Ratio 6 (6-20) Glucose Level 115mg/dL (70-99) Calcium Level 8.3mg/dL (8.5-10.1) Total Bilirubin 1.5mg/dL (0.2-1.0) Aspartate Amino Transf (AST/SGOT) 27U/L (15-37) Alanine Aminotransferase (ALT/SGPT) 36U/L (16-63) Alkaline Phosphatase 103U/L (46-116) Total Protein 5.9g/dL (6.4-8.2) Albumin 2.2g/dL (3.4-5.0) Albumin/Globulin Ratio 0.6 (1.0-1.7) Laboratory Tests Test 10/29/16 15:25 10/30/16 05:00 Urine Color Rylee Urine Clarity Clear Urine pH 6.5 Urine Specific [place] >=1.030 Urine Protein 30mg/dL (NEG-TRACE) Urine Glucose (UA) Negativemg/dL (NEG) Urine Ketones (Stick) Negativemg/dL (NEG) Urine Blood Small (NEG) Urine Nitrite Negative (NEG) Urine Bilirubin Moderate (NEG) Urine Urobilinogen Dipstick 2.0mg/dL (0.2 mg/dL) Urine Leukocyte Esterase Negative (NEG) Urine RBC 3-5/HPF (0-2) Urine WBC Occ/HPF (0-4) Urine Squamous Epithelial Cells Occ/LPF Urine Bacteria 0/HPF (0-FEW) White Blood Count 16.5x10^3/uL (4.0-11.0) Red Blood Count 4.92x10^6/uL (4.30-5.70) Hemoglobin 13.6g/dL (13.0-17.5) Hematocrit 40.2% (39.0-53.0) Mean Corpuscular Volume 82fL (79-100) Mean Corpuscular Hemoglobin 28pg (25-35) Mean Corpuscular Hemoglobin Concent 34g/dL (31-37) Red Cell Distribution Width 16.1% (11.5-14.5) Platelet Count 192x10^3/uL (140-400) Neutrophils (%) (Auto) 80% (31-73) Lymphocytes (%) (Auto) 8% (24-48) Monocytes (%) (Auto) 10% (0-9) Eosinophils (%) (Auto) 2% (0-3) Basophils (%) (Auto) 1% (0-3) Neutrophils # (Auto) 13.2x10^3uL (1.8-7.7) Lymphocytes # (Auto) 1.3x10^3/uL (1.0-4.8) Monocytes # (Auto) 1.6x10^3/uL (0.0-1.1) Eosinophils # (Auto) 0.3x10^3/uL (0.0-0.7) Basophils # (Auto) 0.1x10^3/uL (0.0-0.2) Sodium Level 133mmol/L (136-145) Potassium Level 2.6mmol/L (3.5-5.1) Chloride Level 93mmol/L (98-107) Carbon Dioxide Level 31mmol/L (21-32) Anion Gap 9 (6-14) Blood Urea Nitrogen 4mg/dL (8-26) Creatinine 0.7mg/dL (0.7-1.3) Estimated GFR (Cockcroft-Gault) 116.2 BUN/Creatinine Ratio 6 (6-20) Glucose Level 115mg/dL (70-99) Calcium Level 8.3mg/dL (8.5-10.1) Total Bilirubin 1.5mg/dL (0.2-1.0) Aspartate Amino Transf (AST/SGOT) 27U/L (15-37) Alanine Aminotransferase (ALT/SGPT) 36U/L (16-63) Alkaline Phosphatase 103U/L (46-116) Total Protein 5.9g/dL (6.4-8.2) Albumin 2.2g/dL (3.4-5.0) Albumin/Globulin Ratio 0.6 (1.0-1.7) Lipase 349U/L (73-393) Medications Current Medications Aspirin (Children'S Aspirin) 324 mg 1X ONCE PO ; Start 10/24/16 at 20:30; Stop 10/24/16 at 20:31; Status DC Nitroglycerin (Nitrostat) 0.4 mg PRN Q5MIN PRN SL CHEST PAIN Last administered on 10/24/16t 20:32; Start 10/24/16 at 20:30 Morphine Sulfate 2 mg PRN Q1HR PRN IV SEVERE PAIN Last administered on 08:03; Start 10/24/16 at 20:30; Stop 10/25/16 at 08:03; Status DC Iohexol (Omnipaque 350 Mg/ml) 90 ml 1X ONCE IV Last administered on 10/24/16 21:48; Start 10/24/16 at 21:30; Stop 10/24/16 at 21:31; Status DC Info (Do NOT chart on this entry -- for MONITORING) 1 each PRN DAILY PRN MC SEE COMMENTS; Start 10/24/16 at 21:15; Stop 10/26/16 at 21:14; Status DC Hydromorphone HCl (Dilaudid) 1 mg 1X ONCE IV Last administered on 10/24/16 21 :31; Start 10/24/16 at 21:45; Stop 10/24/16 at 21:46; Status DC Hydromorphone HCl (Dilaudid) 0.5 mg PRN Q1HR PRN IV SEVERE PAIN Last administered on 10/25/16 05:01; Start 10/24/16 at 21:30; Stop 10/25/16 at 05:01 ; Status DC Ondansetron HCl (Zofran) 4 mg 1X ONCE IV Last administered on 10/24/16 21:31 ; Start 10/24/16 at 21:45; Stop 10/24/16 at 21:46; Status DC Ondansetron HCl (Zofran) 4 mg PRN Q8HRS PRN IV NAUSEA/VOMITING Last administered on 10/25/16 09:30; Start 10/24/16 at 23:00; Stop 10/25/16 at 22:59 ; Status DC Morphine Sulfate 2 mg PRN Q2HR PRN IV SEVERE PAIN; Start 10/24/16 at 23:00; Stop 10/25/16 at 22:59; Status DC Fentanyl Citrate 50 mcg 50 mcg PRN Q2HR PRN IV SEVERE PAIN Last administered on 10/25/16 14:31; Start 10/24/16 at 23:00; Stop 10/25/16 at 22:59; Status DC Sodium Chloride (Iv Sodium Chloride 0.9% 1000ml Bag) 1,000 ml @ 100 mls/hr 1X ONCE IV Last administered on 10/24/16 23:53; Start 10/24/16 at 23:45; Stop at 09:44; Status DC Dicyclomine HCl (Bentyl) 10 mg 1X ONCE IM Last administered on 10/24/16 23:43 ; Start 10/25/16 at 00:00; Stop 10/25/16 at 00:01; Status DC Labetalol HCl (Normodyne) 20 mg PRN Q2HR PRN IVP HYPERTENSION, SEE COMMENTS Last administered on 10/29/16 16:22; Start 10/25/16 at 09:00 Hydromorphone HCl (Dilaudid) 1 mg Q1HR PRN IV PAIN; Start 10/25/16 at 09:30; Stop 10/25/16 at 09:30; Status DC Hydromorphone HCl 1 mg 1 mg PRN Q1HR PRN IV PAIN Last administered on 12:26; Start 10/25/16 at 09:31; Stop 10/25/16 at 13:05; Status DC Magnesium Sulfate/ Dextrose (Magnesium Sulfate PREMIX 2GM) 50 ml @ 25 mls/hr 1X ONCE IV Last administered on 10/25/16 15:45; Start 10/25/16 at 13:00; Stop 10/25/16 at 14:59; Status DC Fluoxetine HCl (Prozac) 20 mg HS PO ; Start 10/25/16 at 21:00; Stop 10/25/16 at 21:00; Status DC Pramipexole Dihydrochloride (miraPEX) 0.25 mg QHS PO ; Start 10/25/16 at 21:00; Stop 10/25/16 at 21:00; Status DC Zolpidem Tartrate (Ambien) 5 mg QHS PO ; Start 10/25/16 at 21:00; Stop 10/25/16 at 21:00; Status DC Zolpidem Tartrate 5 mg 5 mg PRN QHS PRN PO INSOMNIA; Start 10/25/16 at 13:00; Stop 10/25/16 at 13:05; Status DC Hydromorphone HCl (Dilaudid Standard MACHINE STRIP[employer] CUTTER) 30 ml @ 0 mls/hr CONT PRN PRN IV PROTOCOL Last administered on 10/29/16 18:16; Start 10/25/16 at 13:00 Lorazepam 1 mg 1 mg PRN Q4HRS PRN IV ANXIETY / AGITATION Last administered on 02:27; Start 10/25/16 at 13:00 Dextrose/Sodium Chloride (Iv D5% - 1/2 NS) 1,000 ml @ 150 mls/hr Q6H40M IV Last administered on 10/29/16 21:11; Start 10/25/16 at 13:00 Ondansetron HCl (Zofran) 4 mg PRN Q4HRS PRN IV NAUSEA/VOMITING Last administered on 10/30/16 04:05; Start 10/25/16 at 13:45 Famotidine (Pepcid) 40 mg DAILY16 IVP Last administered on 10/29/16 16:23; Start 10/26/16 at 16:00 Amlodipine Besylate (Norvasc) 5 mg DAILY PO Last administered on 10/30/16 08: 14; Start 10/27/16 at 09:00 Ondansetron HCl (Zofran) 4 mg PRN Q6HRS PRN IV NAUSEA/VOMITING; Start 10/27/16 at 08:15; Stop 10/27/16 at 14:47; Status DC Alprazolam (Xanax) 0.5 mg PRN Q8HRS PRN PO ANXIETY / AGITATION Last administered on 10/29/16 21:10; Start 10/27/16 at 08:15 Iohexol (Omnipaque 300 Mg/ml) 75 ml 1X ONCE IV Last administered on 10/29/16 13:57; Start 10/29/16 at 12:45; Stop 10/29/16 at 12:46; Status DC Iohexol (Omnipaque 240 Mg/ml) 30 ml 1X ONCE PO Last administered on 10/29/16 13:57; Start 10/29/16 at 12:45; Stop 10/29/16 at 12:46; Status DC Info (Do NOT chart on this entry -- for MONITORING) 1 each PRN DAILY PRN MC SEE COMMENTS; Start 10/29/16 at 12:45; Stop 10/31/16 at 12:44 Active Scripts Active Reported Prestalia 7 mg-5 mg Tablet (Perindopril Arg/Amlodipine Bes) 1 Each Tablet 1 Each PO Zolpidem Tartrate 10 Mg Tablet 1 Tab PO QHS Prozac (Fluoxetine Hcl) 20 Mg Capsule 1 Cap PO HS Mirapex (Pramipexole Di-Hcl) 0.25 Mg Tablet 1 Tab PO QHS Pravastatin Sodium 20 Mg Tablet 1 Tab PO QHS Hydrochlorothiazide Tablet (Hydrochlorothiazide) 12.5 Mg Tablet 1 Tab PO DAILY Vitals/I & O Vital Sign - Last 24 Hours 10/29/16 10/29/16 10/29/16 10/29/16 11:00 11:00 15:00 15:00 Temp 98.2 97.9 98.2 97.9 Pulse 83 83 Resp 20 20 B/P 181/103 182/104 166/107 173/107 Pulse Ox 89 91 O2 Delivery Nasal Cannula Nasal Cannula O2 Flow Rate 2.0 2.0 10/29/16 10/29/16 10/29/16 10/29/16 16:22 17:12 18:08 18:16 Temp 97.9 97.9 Pulse 83 72 77 Resp 20 22 B/P 181/103 165/101 144/83 Pulse Ox 90 91 99 O2 Delivery Nasal Cannula Nasal Cannula Nasal Cannula O2 Flow Rate 2.0 2.0 3.0 10/29/16 10/29/16 10/29/16 10/29/16 18:46 19:00 20:00 23:00 Temp 98.6 99.7 98.6 99.7 Pulse 78 72 Resp 20 18 18 B/P 159/101 152/101 Pulse Ox 90 90 91 O2 Delivery Nasal Cannula Nasal Cannula Nasal Cannula Nasal Cannula O2 Flow Rate 3.0 2.0 3.0 2.0 10/30/16 10/30/16 07:00 08:14 Temp 97.5 97.5 Pulse 78 78 Resp 20 B/P 149/91 149/91 Pulse Ox 88 O2 Delivery Nasal Cannula O2 Flow Rate 2.0 Intake and Output 10/29/16 10/29/16 10/30/16 15:00 23:00 07:00 Intake Total 50 ml Output Total 150 ml 425 ml Balance -100 ml -425 ml TULIO FRAIRE MD Oct 30, 2016 10:31
[2016-10-30] MEDS: POTASSIUM CHLORIDE 10MEQ 100 ML IV SCH ×4 (10:59→20:00)
[2016-10-30 11:00] VITALS: BP 150/92
--- NOTE | 2016-10-30 11:15 | PDOC ---
Subjective: Subjective: Frustrated - says PEDIATRIC INTENSIVE PHYSICIAN not controlling pain, feels he needs something more to be done. Has questions about the course of pancreatitis, pseudocyst. Passed a little gas yesterday, no stool. Objective: Objective: Now has PICC. TPN not started yet. Tmax 99.7. Reviewed Dr. Nichols's note. Vital Signs: Vital Signs Date Time Temp Pulse Resp B/P Pulse Ox O2 Delivery O2 Flow Rate FiO2 10/30/16 08:14 78 149/91 10/30/16 07:00 97.5 20 88 Nasal Cannula 2.0 97.5 Labs: Laboratory Tests Test 10/29/16 15:25 10/30/16 05:00 Urine Color Rylee Urine Clarity Clear Urine pH 6.5 Urine Specific [place] >=1.030 Urine Protein 30mg/dL Urine Glucose (UA) Negativemg/dL Urine Ketones (Stick) Negativemg/dL Urine Blood Small Urine Nitrite Negative Urine Bilirubin Moderate Urine Urobilinogen Dipstick 2.0mg/dL Urine Leukocyte Esterase Negative Urine RBC 3-5/HPF Urine WBC Occ/HPF Urine Squamous Epithelial Cells Occ/LPF Urine Bacteria 0/HPF White Blood Count 16.5x10^3/uL Red Blood Count 4.92x10^6/uL Hemoglobin 13.6g/dL Hematocrit 40.2% Mean Corpuscular Volume 82fL Mean Corpuscular Hemoglobin 28pg Mean Corpuscular Hemoglobin Concent 34g/dL Red Cell Distribution Width 16.1% Platelet Count 192x10^3/uL Neutrophils (%) (Auto) 80% Lymphocytes (%) (Auto) 8% Monocytes (%) (Auto) 10% Eosinophils (%) (Auto) 2% Basophils (%) (Auto) 1% Neutrophils # (Auto) 13.2x10^3uL Lymphocytes # (Auto) 1.3x10^3/uL Monocytes # (Auto) 1.6x10^3/uL Eosinophils # (Auto) 0.3x10^3/uL Basophils # (Auto) 0.1x10^3/uL Sodium Level 133mmol/L Potassium Level 2.6mmol/L Chloride Level 93mmol/L Carbon Dioxide Level 31mmol/L Anion Gap 9 Blood Urea Nitrogen 4mg/dL Creatinine 0.7mg/dL Estimated GFR (Cockcroft-Gault) 116.2 BUN/Creatinine Ratio 6 Glucose Level 115mg/dL Calcium Level 8.3mg/dL Total Bilirubin 1.5mg/dL Aspartate Amino Transf (AST/SGOT) 27U/L Alanine Aminotransferase (ALT/SGPT) 36U/L Alkaline Phosphatase 103U/L Total Protein 5.9g/dL Albumin 2.2g/dL Albumin/Globulin Ratio 0.6 Lipase 349U/L Imaging: CT A/P 10/29/16 Impression: 1. Development of small left pleural effusion and bibasilar infiltrates or atelectasis. 2. Worsening abdominal and pelvic free fluid with fluid collection noted adjacent to the anterior pancreas and lesser sac region suggestive of pancreatic pseudocyst. No pancreatic necrosis is identified. 3. Diverticulosis. There is wall thickening of the descending colon consistent with either acute diverticulitis or secondary inflammation from adjacent pancreatitis. PE: GEN: NAD LUNGS: CTAB anteriorly HEART: RRR ABD: BS+ quiet, tender diffusely (worst epigastrium), some distention NEURO/PSYCH: A & O 3 A/P: Pancreatitis - interval CT w/ pseudocyst -has PICC, NPO Leukocytosis - a little worse today -Tmax 99.7 Abd pain -despite PEDIATRIC INTENSIVE PHYSICIAN -- CT as above. Talked w/ pt for awhile, listened to his concerns. D/w RN - will start PPN while waiting for TPN. Will ask ID to see. Will review w/ Dr. Mcgovern. DIOGENES CONN Oct 30, 2016 11:15
--- NOTE | 2016-10-30 11:42 | PDOC ---
Infectious Disease Note ROS ROS GEN: Denies fevers, chills, sweats HEENT: Denies blurred vision, sore throat CV: Denies chest pain RESP: Denies shortness of air, cough GI: Denies n/v/d NEURO: Denies confusion, dizziness MSK: Denies weakness, joint pain/swelling Vital Sign Vital Signs Vital Signs Date Time Temp Pulse Resp B/P Pulse Ox O2 Delivery O2 Flow Rate FiO2 10/30/16 08:14 78 149/91 10/30/16 07:00 97.5 20 88 Nasal Cannula 2.0 97.5 Physical Exam PHYSICAL EXAM GENERAL: NAD, Alert HEENT: PERRL, OC/OP NECK: Supple, no JVD, no LN LUNGS: Clear HEART: S1S2, no gallop, no murmur ABD: Soft, NT, no organomegaly, no rebound EXT: No edema, no cyanosis LUNCH COUNTER MANAGER: Alert, 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, no focal neurologic deficit SKIN: No rash IV: ok Labs Lab Laboratory Tests Test 10/29/16 15:25 10/30/16 05:00 Urine Color Rylee Urine Clarity Clear Urine pH 6.5 Urine Specific [place] >=1.030 Urine Protein 30mg/dL (NEG-TRACE) Urine Glucose (UA) Negativemg/dL (NEG) Urine Ketones (Stick) Negativemg/dL (NEG) Urine Blood Small (NEG) Urine Nitrite Negative (NEG) Urine Bilirubin Moderate (NEG) Urine Urobilinogen Dipstick 2.0mg/dL (0.2 mg/dL) Urine Leukocyte Esterase Negative (NEG) Urine RBC 3-5/HPF (0-2) Urine WBC Occ/HPF (0-4) Urine Squamous Epithelial Cells Occ/LPF Urine Bacteria 0/HPF (0-FEW) White Blood Count 16.5x10^3/uL (4.0-11.0) Red Blood Count 4.92x10^6/uL (4.30-5.70) Hemoglobin 13.6g/dL (13.0-17.5) Hematocrit 40.2% (39.0-53.0) Mean Corpuscular Volume 82fL (79-100) Mean Corpuscular Hemoglobin 28pg (25-35) Mean Corpuscular Hemoglobin Concent 34g/dL (31-37) Red Cell Distribution Width 16.1% (11.5-14.5) Platelet Count 192x10^3/uL (140-400) Neutrophils (%) (Auto) 80% (31-73) Lymphocytes (%) (Auto) 8% (24-48) Monocytes (%) (Auto) 10% (0-9) Eosinophils (%) (Auto) 2% (0-3) Basophils (%) (Auto) 1% (0-3) Neutrophils # (Auto) 13.2x10^3uL (1.8-7.7) Lymphocytes # (Auto) 1.3x10^3/uL (1.0-4.8) Monocytes # (Auto) 1.6x10^3/uL (0.0-1.1) Eosinophils # (Auto) 0.3x10^3/uL (0.0-0.7) Basophils # (Auto) 0.1x10^3/uL (0.0-0.2) Sodium Level 133mmol/L (136-145) Potassium Level 2.6mmol/L (3.5-5.1) Chloride Level 93mmol/L (98-107) Carbon Dioxide Level 31mmol/L (21-32) Anion Gap 9 (6-14) Blood Urea Nitrogen 4mg/dL (8-26) Creatinine 0.7mg/dL (0.7-1.3) Estimated GFR (Cockcroft-Gault) 116.2 BUN/Creatinine Ratio 6 (6-20) Glucose Level 115mg/dL (70-99) Calcium Level 8.3mg/dL (8.5-10.1) Total Bilirubin 1.5mg/dL (0.2-1.0) Aspartate Amino Transf (AST/SGOT) 27U/L (15-37) Alanine Aminotransferase (ALT/SGPT) 36U/L (16-63) Alkaline Phosphatase 103U/L (46-116) Total Protein 5.9g/dL (6.4-8.2) Albumin 2.2g/dL (3.4-5.0) Albumin/Globulin Ratio 0.6 (1.0-1.7) Lipase 349U/L (73-393) Objective Assessment Abd pain ? developing on GEOLOGICAL AIDE Ileus - can cause leukocytosis and fever Leukocytosis Pancreatitis Plan Plan of Care No CT evidence for need for abx Need to relieve ? ileus and monitor WBC Give suppository F/u labs and temps Thank you # [id number] TIMMY TORRES MD Oct 30, 2016 11:42
[2016-10-30] MEDS: AA 3%/ELECTROLYTE-TPN SOLN/GLY 1,000 ML IV SCH ×2 (12:15→12:38)
[2016-10-30] MEDS: BISACODYL 10 MG SUPP.RECT PR PRN (12:39)
[2016-10-30 12:51] LABS: MAGNESIUM 1.8 mg/dL (1.8-2.4); PHOSPHORUS 3.6 mg/dL (2.6-4.7)
[2016-10-30] MEDS: HYDROMORPHONE STANDARD PCA 30 ML IV PRN ×2 (13:05→23:54)
[2016-10-30] MEDS: TPN PER PHARMACY MC PRN (13:06)
[2016-10-30 15:00] VITALS: BP 151/97
[2016-10-30] MEDS: OCTREOTIDE 100 MCG/ML VIAL SQ SCH ×2 (15:00→22:00)
[2016-10-30] MEDS: FAMOTIDINE 20 MG/2 ML VIAL IVP SCH (16:42)
[2016-10-30 18:19] LABS: CALCIUM 8.2 mg/dL (8.5-10.1); CREATININE 0.6 mg/dL (0.7-1.3); GFR 138.9
[2016-10-30 19:00] VITALS: BP 164/107
[2016-10-30] MEDS ORDERED: DEXTROSE 70% IV SCH ×10 (22:00)
[2016-10-30] MEDS ORDERED: TOTAL PARENTERAL NUTRITION 0 ML, AMINO ACIDS 10 % 60 GM, DEXTROSE 70 % IN WATER 195 GM,... IV SCH ×10 (22:00)
[2016-10-30] MEDS ORDERED: [UNRECOGNIZED DRUG - OTHER] IV SCH ×10 (22:00)
[2016-10-30] MEDS ORDERED: AMINO ACIDS IV SCH ×10 (22:00)
[2016-10-30] MEDS ORDERED: TOTAL PARENTERAL NUTRITION IV SCH ×10 (22:00)
[2016-10-30 23:00] VITALS: BP 169/105
[2016-10-31] MEDS: LORAZEPAM 2 MG/ML VIAL IV PRN ×2 (00:05→22:21)
--- NOTE | 2016-10-31 00:29 | CONS ---
DATE OF CONSULTATION: 10/30/2016 LOCATION: The patient's room is 520. REQUESTING PHYSICIAN: Nurse practitioner, ____. REASON FOR CONSULTATION: Leukocytosis and pancreatitis. 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 He does have a history of distant alcohol abuse, but developed abdominal pain starting last week. A week ago, Thursday, he began to vomit. He essentially emptied out the stomach and then again had dry heaves. At that time, he felt it was necessary to present to the hospital. He presented on 10/24, his white blood cell count was 21.8 and also had a lipase of 43,082. Lipase is essentially normalized today; however, he continues to have low-grade abdominal pain, white count increased from 15.9 to 16.5 today, hence I have been consulted. He underwent a CT scan of the abdomen and pelvis on the . He had worsening abdominopelvic free fluid collection noted. He does have a pancreatic pseudocyst, but no necrosis and diverticulosis. He also has some thickening adjacent to the pancreas and of his colon and small and large bowel loops appeared normal in caliber. Currently, he is lying in bed. Denies any fever, chills or sweats. No headaches, sore throat, cough. Does hurt at times taking deep breath with this abdominal area, has been passing his urine but complains that has been dark. He states he has not had a bowel movement or passed any gas and feels distended. PAST MEDICAL HISTORY: Positive for previous pancreatitis, hyperlipidemia, hypertension, depression, arthritis, diverticulitis and bilateral inguinal hernia repairs. REVIEW OF SYSTEMS: Otherwise negative except for mentioned above. ALLERGIES: No known drug allergies. SOCIAL HISTORY: Smoked less than a pack a day. Does have a history of alcohol use, but none recently. FAMILY HISTORY: Positive for coronary artery disease in his grandparents. CURRENT MEDICATIONS: Dilaudid, Xanax, Norvasc, Pepcid, Ativan. Other meds are available and have been reviewed in chart. PHYSICAL EXAMINATION: VITAL SIGNS: T-max 99.7, currently 97.5, pulse 78, respirations 20, blood pressure 149/91, was satting 88% on 2 liters this morning. CONSTITUTIONAL: He is cooperative, in no acute distress. He is lying in bed. HEENT: Pupils are equal and reactive. He has normal conjunctivae. Oral cavity, pharynx is clear. NECK: Supple. Good range of motion. LUNGS: Clear to auscultation bilaterally. HEART: S1, S2. ABDOMEN: Distended with decreased bowel sounds. EXTREMITIES: No clubbing, cyanosis or gross edema. SKIN: Warm to touch without signs of rash. He has PICC line in right upper extremity without signs of complications. NEUROLOGICAL: He moves all extremities. Affect is appropriate. LABORATORY VALUES: White count 16.5, hemoglobin 13.6, platelets 192 with neutrophils of 80%, monos of 10, creatinine 0.7, glucose 115. Normal liver function study test, lipase was 349. Urinalysis was without bacteria. Radiology reviewed in the history of present illness with regards to CT scan. Chest x-ray was negative for any acute infiltrates. IMPRESSION: 1. Abdominal pain. 2. Questionable developing ileus on GRAIN COMMODITY MANAGER with abdominal distention. It can cause leukocytosis and fever. 3. Leukocytosis. 4. Pancreatitis. RECOMMENDATIONS: For now, there is no CT evidence for need for antibiotics at this point. Need to relieve his questionable ileus and monitor his white blood cell count. We will order suppository, as he is somewhat ____. We will follow up on labs and culture ____. Thank you for allowing me to participate in this patient's care. If you have any questions, please do not hesitate to contact me. TIMMY TORRES MD DR: HEIKE/elen JOB#: [id number] / [id number]
[2016-10-31] MEDS: ONDANSETRON PF 4 MG/2 ML VIAL. IV PRN ×2 (02:44→22:21)
[2016-10-31 03:00] VITALS: BP 152/93
[2016-10-31] MEDS: OCTREOTIDE 100 MCG/ML VIAL SQ SCH ×3 (06:00→20:54)
[2016-10-31 06:43] LABS: BASO # 0.1 x10^3/uL (0.0-0.2); BASO % 1 % (0-3); EOS % 2 % (0-3); HEMOGLOBIN 12.8 g/dL (13.0-17.5); LYMPH # 1.4 x10^3/uL (1.0-4.8); LYMPH % 8 % (24-48); MEAN CORPUSCULAR HEMOGLOBIN 27 pg (25-35); MEAN CORPUSCULAR HGB CONC 33 g/dL (31-37); MEAN CORPUSCULAR VOLUME 82 fL (79-100); MONO % 9 % (0-9); NEUT % 80 % (31-73); PLATELET COUNT 178 x10^3/uL (140-400); RED BLOOD COUNT 4.74 x10^6/uL (4.30-5.70); RED CELL DISTRIBUTION WIDTH 16.3 % (11.5-14.5); WHITE BLOOD COUNT 16.6 x10^3/uL (4.0-11.0)
[2016-10-31 06:57] LABS: CALCIUM 8.1 mg/dL (8.5-10.1); CREATININE 0.5 mg/dL (0.7-1.3); GFR 171.4; MAGNESIUM 1.8 mg/dL (1.8-2.4); PHOSPHORUS 4.1 mg/dL (2.6-4.7); POTASSIUM 3.2 mmol/L (3.5-5.1)
[2016-10-31 07:54] VITALS: BP 145/98
[2016-10-31] MEDS: AMLODIPINE BESYLATE 5 MG TABLET PO SCH (09:40)
--- NOTE | 2016-10-31 10:00 | PDOC ---
PROGRESS NOTES Subjective Subjective Pt awake and pleasant. Continues to c/o abdominal pain, however states the pain is controlled. Pt remains NPO, now on TPN. Objective Objective Pt awake and alert. NAD. VSS. Afebrile. Lungs CTA bilat. Resp even and unlabored. Heart with RRR. No murmurs. Abdomen soft, nondistended, and tender throughout. Vital Signs Date Time Temp Pulse Resp B/P Pulse Ox O2 Delivery O2 Flow Rate FiO2 10/31/16 09:40 74 145/98 10/31/16 07:54 97.7 16 89 Nasal Cannula 97.7 10/31/16 03:00 2.0 Intake and Output 10/31/16 07:00 Intake Total 2134 ml Output Total 2400 ml Balance -266 ml Intake Oral 1000 ml IV Total 334 ml Other 800 ml Output Urine Total 2400 ml Assessment Assessment Problems Medical Problems: (1) Abdominal pain Status: Acute (2) Leukocytosis Status: Acute (3) Pancreatitis Status: Acute Plan Plan of Care 1. Acute pancreatitis with hx of alcoholism -GI consulting -Lipase 43K upon admission, 344 this am. -WBC 21.8 upon admission. 16.6 this am. Continued elevation believed to be secondary to EXTERNAL GRINDER ileus. -Pain controlled with EXTERNAL GRINDER Dilaudid -Ongoing nausea controlled with Zofran prn -KUB on 10/28: "Nonspecific mild gaseous distention of small bowel loops in the central abdomen. Continued progress films could be obtained." -CT on 10/29: pancreatic pseudocyst -PICC placed and TPN initiated on 10/30 2. Hematuria -UA negative for leukocytes, small amt of blood present 3. Hypokalemia, K 3.2 this am -Add 20mEq KCl to TPN. -Recheck BMP in am. Pt will need continued TPN and bowel rest for a short duration. SW consulted to help with Dc plans to SNF. Comment Review of Relevant I have reviewed the following items sathya (where applicable) has been applied. Labs Laboratory Tests Test 10/29/16 15:25 10/30/16 05:00 10/30/16 17:50 10/31/16 06:15 Urine Color Rylee Urine Clarity Clear Urine pH 6.5 Urine Specific [place] >=1.030 Urine Protein 30mg/dL (NEG-TRACE) Urine Glucose (UA) Negativemg/dL (NEG) Urine Ketones (Stick) Negativemg/dL (NEG) Urine Blood Small (NEG) Urine Nitrite Negative (NEG) Urine Bilirubin Moderate (NEG) Urine Urobilinogen Dipstick 2.0mg/dL (0.2 mg/dL) Urine Leukocyte Esterase Negative (NEG) Urine RBC 3-5/HPF (0-2) Urine WBC Occ/HPF (0-4) Urine Squamous Epithelial Cells Occ/LPF Urine Bacteria 0/HPF (0-FEW) White Blood Count 16.5x10^3/uL (4.0-11.0) 16.6x10^3/uL (4.0-11.0) Red Blood Count 4.92x10^6/uL (4.30-5.70) 4.74x10^6/uL (4.30-5.70) Hemoglobin 13.6g/dL (13.0-17.5) 12.8g/dL (13.0-17.5) Hematocrit 40.2% (39.0-53.0) 39.0% (39.0-53.0) Mean Corpuscular Volume 82fL (79-100) 82fL (79-100) Mean Corpuscular Hemoglobin 28pg (25-35) 27pg (25-35) Mean Corpuscular Hemoglobin Concent 34g/dL (31-37) 33g/dL (31-37) Red Cell Distribution Width 16.1% (11.5-14.5) 16.3% (11.5-14.5) Platelet Count 192x10^3/uL (140-400) 178x10^3/uL (140-400) Neutrophils (%) (Auto) 80% (31-73) 80% (31-73) Lymphocytes (%) (Auto) 8% (24-48) 8% (24-48) Monocytes (%) (Auto) 10% (0-9) 9% (0-9) Eosinophils (%) (Auto) 2% (0-3) 2% (0-3) Basophils (%) (Auto) 1% (0-3) 1% (0-3) Neutrophils # (Auto) 13.2x10^3uL (1.8-7.7) 13.3x10^3uL (1.8-7.7) Lymphocytes # (Auto) 1.3x10^3/uL (1.0-4.8) 1.4x10^3/uL (1.0-4.8) Monocytes # (Auto) 1.6x10^3/uL (0.0-1.1) 1.5x10^3/uL (0.0-1.1) Eosinophils # (Auto) 0.3x10^3/uL (0.0-0.7) 0.3x10^3/uL (0.0-0.7) Basophils # (Auto) 0.1x10^3/uL (0.0-0.2) 0.1x10^3/uL (0.0-0.2) Sodium Level 133mmol/L (136-145) 133mmol/L (136-145) 135mmol/L (136-145) Potassium Level 2.6mmol/L (3.5-5.1) 3.0mmol/L (3.5-5.1) 3.2mmol/L (3.5-5.1) Chloride Level 93mmol/L (98-107) 94mmol/L (98-107) 96mmol/L (98-107) Carbon Dioxide Level 31mmol/L (21-32) 31mmol/L (21-32) 33mmol/L (21-32) Anion Gap 9 (6-14) 8 (6-14) 6 (6-14) Blood Urea Nitrogen 4mg/dL (8-26) 6mg/dL (8-26) 6mg/dL (8-26) Creatinine 0.7mg/dL (0.7-1.3) 0.6mg/dL (0.7-1.3) 0.5mg/dL (0.7-1.3) Estimated GFR (Cockcroft-Gault) 116.2 138.9 171.4 BUN/Creatinine Ratio 6 (6-20) Glucose Level 115mg/dL (70-99) 107mg/dL (70-99) 113mg/dL (70-99) Calcium Level 8.3mg/dL (8.5-10.1) 8.2mg/dL (8.5-10.1) 8.1mg/dL (8.5-10.1) Phosphorus Level 3.6mg/dL (2.6-4.7) 4.1mg/dL (2.6-4.7) Magnesium Level 1.8mg/dL (1.8-2.4) 1.8mg/dL (1.8-2.4) Total Bilirubin 1.5mg/dL (0.2-1.0) Aspartate Amino Transf (AST/SGOT) 27U/L (15-37) Alanine Aminotransferase (ALT/SGPT) 36U/L (16-63) Alkaline Phosphatase 103U/L (46-116) Total Protein 5.9g/dL (6.4-8.2) Albumin 2.2g/dL (3.4-5.0) Albumin/Globulin Ratio 0.6 (1.0-1.7) Lipase 349U/L (73-393) Triglycerides Level 188mg/dL (0-150) Laboratory Tests Test 10/30/16 17:50 10/31/16 06:15 Sodium Level 133mmol/L (136-145) 135mmol/L (136-145) Potassium Level 3.0mmol/L (3.5-5.1) 3.2mmol/L (3.5-5.1) Chloride Level 94mmol/L (98-107) 96mmol/L (98-107) Carbon Dioxide Level 31mmol/L (21-32) 33mmol/L (21-32) Anion Gap 8 (6-14) 6 (6-14) Blood Urea Nitrogen 6mg/dL (8-26) 6mg/dL (8-26) Creatinine 0.6mg/dL (0.7-1.3) 0.5mg/dL (0.7-1.3) Estimated GFR (Cockcroft-Gault) 138.9 171.4 Glucose Level 107mg/dL (70-99) 113mg/dL (70-99) Calcium Level 8.2mg/dL (8.5-10.1) 8.1mg/dL (8.5-10.1) White Blood Count 16.6x10^3/uL (4.0-11.0) Red Blood Count 4.74x10^6/uL (4.30-5.70) Hemoglobin 12.8g/dL (13.0-17.5) Hematocrit 39.0% (39.0-53.0) Mean Corpuscular Volume 82fL (79-100) Mean Corpuscular Hemoglobin 27pg (25-35) Mean Corpuscular Hemoglobin Concent 33g/dL (31-37) Red Cell Distribution Width 16.3% (11.5-14.5) Platelet Count 178x10^3/uL (140-400) Neutrophils (%) (Auto) 80% (31-73) Lymphocytes (%) (Auto) 8% (24-48) Monocytes (%) (Auto) 9% (0-9) Eosinophils (%) (Auto) 2% (0-3) Basophils (%) (Auto) 1% (0-3) Neutrophils # (Auto) 13.3x10^3uL (1.8-7.7) Lymphocytes # (Auto) 1.4x10^3/uL (1.0-4.8) Monocytes # (Auto) 1.5x10^3/uL (0.0-1.1) Eosinophils # (Auto) 0.3x10^3/uL (0.0-0.7) Basophils # (Auto) 0.1x10^3/uL (0.0-0.2) Phosphorus Level 4.1mg/dL (2.6-4.7) Magnesium Level 1.8mg/dL (1.8-2.4) Triglycerides Level 188mg/dL (0-150) Medications Current Medications Aspirin (Children'S Aspirin) 324 mg 1X ONCE PO ; Start 10/24/16 at 20:30; Stop 10/24/16 at 20:31; Status DC Nitroglycerin (Nitrostat) 0.4 mg PRN Q5MIN PRN SL CHEST PAIN Last administered on 10/24/16 20:32; Start 10/24/16 at 20:30 Morphine Sulfate 2 mg PRN Q1HR PRN IV SEVERE PAIN Last administered on 08:03; Start 10/24/16 at 20:30; Stop 10/25/16 at 08:03; Status DC Iohexol (Omnipaque 350 Mg/ml) 90 ml 1X ONCE IV Last administered on 10/24/16 21:48; Start 10/24/16 at 21:30; Stop 10/24/16 at 21:31; Status DC Info (Do NOT chart on this entry -- for MONITORING) 1 each PRN DAILY PRN MC SEE COMMENTS; Start 10/24/16 at 21:15; Stop 10/26/16 at 21:14; Status DC Hydromorphone HCl (Dilaudid) 1 mg 1X ONCE IV Last administered on 10/24/16 21 :31; Start 10/24/16 at 21:45; Stop 10/24/16 at 21:46; Status DC Hydromorphone HCl (Dilaudid) 0.5 mg PRN Q1HR PRN IV SEVERE PAIN Last administered on 10/25/16 05:01; Start 10/24/16 at 21:30; Stop 10/25/16 at 05:01 ; Status DC Ondansetron HCl (Zofran) 4 mg 1X ONCE IV Last administered on 10/24/16 21:31 ; Start 10/24/16 at 21:45; Stop 10/24/16 at 21:46; Status DC Ondansetron HCl (Zofran) 4 mg PRN Q8HRS PRN IV NAUSEA/VOMITING Last administered on 10/25/16 09:30; Start 10/24/16 at 23:00; Stop 10/25/16 at 22:59 ; Status DC Morphine Sulfate 2 mg PRN Q2HR PRN IV SEVERE PAIN; Start 10/24/16 at 23:00; Stop 10/25/16 at 22:59; Status DC Fentanyl Citrate 50 mcg 50 mcg PRN Q2HR PRN IV SEVERE PAIN Last administered on 10/25/16 14:31; Start 10/24/16 at 23:00; Stop 10/25/16 at 22:59; Status DC Sodium Chloride (Iv Sodium Chloride 0.9% 1000ml Bag) 1,000 ml @ 100 mls/hr 1X ONCE IV Last administered on 10/24/16 23:53; Start 10/24/16 at 23:45; Stop at 09:44; Status DC Dicyclomine HCl (Bentyl) 10 mg 1X ONCE IM Last administered on 10/24/16 23:43 ; Start 10/25/16 at 00:00; Stop 10/25/16 at 00:01; Status DC Labetalol HCl (Normodyne) 20 mg PRN Q2HR PRN IVP HYPERTENSION, SEE COMMENTS Last administered on 10/29/16 16:22; Start 10/25/16 at 09:00 Hydromorphone HCl (Dilaudid) 1 mg Q1HR PRN IV PAIN; Start 10/25/16 at 09:30; Stop 10/25/16 at 09:30; Status DC Hydromorphone HCl 1 mg 1 mg PRN Q1HR PRN IV PAIN Last administered on 12:26; Start 10/25/16 at 09:31; Stop 10/25/16 at 13:05; Status DC Magnesium Sulfate/ Dextrose (Magnesium Sulfate PREMIX 2GM) 50 ml @ 25 mls/hr 1X ONCE IV Last administered on 10/25/16 15:45; Start 10/25/16 at 13:00; Stop 10/25/16 at 14:59; Status DC Fluoxetine HCl (Prozac) 20 mg HS PO ; Start 10/25/16 at 21:00; Stop 10/25/16 at 21:00; Status DC Pramipexole Dihydrochloride (miraPEX) 0.25 mg QHS PO ; Start 10/25/16 at 21:00; Stop 10/25/16 at 21:00; Status DC Zolpidem Tartrate (Ambien) 5 mg QHS PO ; Start 10/25/16 at 21:00; Stop 10/25/16 at 21:00; Status DC Zolpidem Tartrate 5 mg 5 mg PRN QHS PRN PO INSOMNIA; Start 10/25/16 at 13:00; Stop 10/25/16 at 13:05; Status DC Hydromorphone HCl (Dilaudid Standard EXTERNAL GRINDER) 30 ml @ 0 mls/hr CONT PRN PRN IV PROTOCOL Last administered on 10/30/16 23:54; Start 10/25/16 at 13:00 Lorazepam 1 mg 1 mg PRN Q4HRS PRN IV ANXIETY / AGITATION Last administered on 00:05; Start 10/25/16 at 13:00 Dextrose/Sodium Chloride (Iv D5% - 1/2 NS) 1,000 ml @ 150 mls/hr Q6H40M IV Last administered on 10/30/16 11:24; Start 10/25/16 at 13:00 Ondansetron HCl (Zofran) 4 mg PRN Q4HRS PRN IV NAUSEA/VOMITING Last administered on 10/31/16 02:44; Start 10/25/16 at 13:45 Famotidine (Pepcid) 40 mg DAILY16 IVP Last administered on 10/30/16 16:42; Start 10/26/16 at 16:00 Amlodipine Besylate (Norvasc) 5 mg DAILY PO Last administered on 10/31/16 09: 40; Start 10/27/16 at 09:00 Ondansetron HCl (Zofran) 4 mg PRN Q6HRS PRN IV NAUSEA/VOMITING; Start 10/27/16 at 08:15; Stop 10/27/16 at 14:47; Status DC Alprazolam (Xanax) 0.5 mg PRN Q8HRS PRN PO ANXIETY / AGITATION Last administered on 10/29/16 21:10; Start 10/27/16 at 08:15 Iohexol (Omnipaque 300 Mg/ml) 75 ml 1X ONCE IV Last administered on 10/29/16 13:57; Start 10/29/16 at 12:45; Stop 10/29/16 at 12:46; Status DC Iohexol (Omnipaque 240 Mg/ml) 30 ml 1X ONCE PO Last administered on 10/29/16 13:57; Start 10/29/16 at 12:45; Stop 10/29/16 at 12:46; Status DC Info 1 each 1 each PRN DAILY PRN MC SEE COMMENTS; Start 10/29/16 at 12:45; Stop 10/31/16 at 12:44 Potassium Chloride (KCl Premix 10meq) 100 ml @ 100 mls/hr Q1H IV Last administered on 10/30/16 12:39; Start 10/30/16 at 11:00; Stop 10/30/16 at 12:59 ; Status DC Bisacodyl 10 mg 10 mg PRN DAILY PRN LA CONSTIPATION Last administered on 12:39; Start 10/30/16 at 11:30 Amino Acids/ Glycerin/ Electrolytes (Procalamine) 1,000 ml @ 80 mls/hr [id number] IV Last administered on 10/30/16 12:15; Start 10/30/16 at 12:15; Stop at 21:59; Status DC Info 1 each 1 each PRN DAILY PRN MC SEE COMMENTS Last administered on 13:06; Start 10/30/16 at 12:15 Sodium Chloride 90 meq/Potassium Chloride 50 meq/ Potassium Phosphate 13.6 mmol/ Magnesium Sulfate 10 meq/ Calcium Gluconate 10 meq/ Multivitamins/ Minerals 10 ml/ Chromium/Copper/ Manganese/Seleni/ Zn 1 ml/Total Parenteral Nutrition/Amino Acids/Dextrose/ Fat Emulsion Intravenous 87.0013 ml @ 3.625 mls/hr TPN CONT IV ; Start 10/30/16 at 22:00; Stop 10/31/16 at 21:59; Status UNV Sodium Chloride/ Potassium Chloride/ Potassium Phosphate/ Magnesium Sulfate/ Calcium Gluconate/ Multivitamins/ Minerals/Chromium/ Copper/Manganese/ Seleni/Zn /Total Parenteral Nutrition/Amino Acids/Dextrose/ Fat Emulsion Intravenous ( Sodium Chloride/ Potassium Phospha... 1,512 ml @ 63 mls/hr TPN CONT IV Last administered on 10/30/16 23:51; Start 10/30/16 at 22:00; Stop 10/31/16 at 21:59 Octreotide Acetate 100 mcg 100 mcg Q8HRS SQ ; Start 10/30/16 at 15:00 Potassium Chloride (KCl Premix 10meq) 100 ml @ 100 mls/hr Q1H IV Last administered on 10/30/16 20:00; Start 10/30/16 at 19:00; Stop 10/30/16 at 20:59 ; Status DC Active Scripts Active Reported Prestalia 7 mg-5 mg Tablet (Perindopril Arg/Amlodipine Bes) 1 Each Tablet 1 Each PO Zolpidem Tartrate 10 Mg Tablet 1 Tab PO QHS Prozac (Fluoxetine Hcl) 20 Mg Capsule 1 Cap PO HS Mirapex (Pramipexole Di-Hcl) 0.25 Mg Tablet 1 Tab PO QHS Pravastatin Sodium 20 Mg Tablet 1 Tab PO QHS Hydrochlorothiazide Tablet (Hydrochlorothiazide) 12.5 Mg Tablet 1 Tab PO DAILY Vitals/I & O Vital Sign - Last 24 Hours 10/30/16 10/30/16 10/30/16 10/30/16 11:00 13:05 15:00 19:00 Temp 98.6 98.9 98.4 98.6 98.9 98.4 Pulse 79 76 86 Resp 20 20 20 18 B/P 150/92 151/97 164/107 Pulse Ox 93 91 95 O2 Delivery Nasal Cannula Nasal Cannula Nasal Cannula Nasal Cannula O2 Flow Rate 2.0 5.0 2.0 2.0 10/30/16 10/30/16 10/30/16 10/31/16 20:00 23:00 23:54 00:24 Temp 97.9 97.9 Pulse 86 Resp 18 20 20 B/P 169/105 Pulse Ox 94 94 94 O2 Delivery Room Air Nasal Cannula Nasal Cannula Room Air O2 Flow Rate 2.0 2.0 2.0 10/31/16 10/31/16 10/31/16 03:00 07:54 09:40 Temp 97.5 97.7 97.5 97.7 Pulse 80 74 74 Resp 18 16 B/P 152/93 145/98 145/98 Pulse Ox 94 89 O2 Delivery Nasal Cannula Nasal Cannula O2 Flow Rate 2.0 Intake and Output 10/30/16 10/30/16 10/31/16 15:00 23:00 07:00 Intake Total 1800 ml 334 ml Output Total 1850 ml 550 ml Balance -50 ml -216 ml TULIO FRAIRE MD Oct 31, 2016 10:00
--- NOTE | 2016-10-31 10:44 | PDOC ---
Infectious Disease Note Subjective Subjective Small Bm and flatus but still things not moving ROS ROS GEN: Denies fevers, chills, sweats HEENT: Denies blurred vision, sore throat CV: Denies chest pain RESP: Denies shortness of air, cough GI: Denies n/v/d. + Distension NEURO: Denies confusion, dizziness MSK: Denies weakness, joint pain/swelling Vital Sign Vital Signs Vital Signs Date Time Temp Pulse Resp B/P Pulse Ox O2 Delivery O2 Flow Rate FiO2 10/31/16 09:40 74 145/98 10/31/16 07:54 97.7 16 89 Nasal Cannula 97.7 10/31/16 03:00 2.0 Physical Exam PHYSICAL EXAM GENERAL: NAD, Alert. Looks well HEENT: PERRL, OC/OP- clear NECK: Supple, no JVD, no LN LUNGS: Clear HEART: S1S2, no gallop, no murmur ABD: Soft, Distended, NT, no organomegaly, no rebound EXT: No edema, no cyanosis CUSTOMER LIAISON: Alert, 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, no focal neurologic deficit SKIN: No rash IV: ok Labs Lab Laboratory Tests Test 10/30/16 17:50 10/31/16 06:15 Sodium Level 133mmol/L (136-145) 135mmol/L (136-145) Potassium Level 3.0mmol/L (3.5-5.1) 3.2mmol/L (3.5-5.1) Chloride Level 94mmol/L (98-107) 96mmol/L (98-107) Carbon Dioxide Level 31mmol/L (21-32) 33mmol/L (21-32) Anion Gap 8 (6-14) 6 (6-14) Blood Urea Nitrogen 6mg/dL (8-26) 6mg/dL (8-26) Creatinine 0.6mg/dL (0.7-1.3) 0.5mg/dL (0.7-1.3) Estimated GFR (Cockcroft-Gault) 138.9 171.4 Glucose Level 107mg/dL (70-99) 113mg/dL (70-99) Calcium Level 8.2mg/dL (8.5-10.1) 8.1mg/dL (8.5-10.1) White Blood Count 16.6x10^3/uL (4.0-11.0) Red Blood Count 4.74x10^6/uL (4.30-5.70) Hemoglobin 12.8g/dL (13.0-17.5) Hematocrit 39.0% (39.0-53.0) Mean Corpuscular Volume 82fL (79-100) Mean Corpuscular Hemoglobin 27pg (25-35) Mean Corpuscular Hemoglobin Concent 33g/dL (31-37) Red Cell Distribution Width 16.3% (11.5-14.5) Platelet Count 178x10^3/uL (140-400) Neutrophils (%) (Auto) 80% (31-73) Lymphocytes (%) (Auto) 8% (24-48) Monocytes (%) (Auto) 9% (0-9) Eosinophils (%) (Auto) 2% (0-3) Basophils (%) (Auto) 1% (0-3) Neutrophils # (Auto) 13.3x10^3uL (1.8-7.7) Lymphocytes # (Auto) 1.4x10^3/uL (1.0-4.8) Monocytes # (Auto) 1.5x10^3/uL (0.0-1.1) Eosinophils # (Auto) 0.3x10^3/uL (0.0-0.7) Basophils # (Auto) 0.1x10^3/uL (0.0-0.2) Phosphorus Level 4.1mg/dL (2.6-4.7) Magnesium Level 1.8mg/dL (1.8-2.4) Triglycerides Level 188mg/dL (0-150) Objective Assessment Abd pain ? developing Ileus on CURBING STONECUTTER - can cause leukocytosis and fever Leukocytosis - stable Pancreatitis Plan Plan of Care F/u labs and temps TIMMY TORRES MD Oct 31, 2016 10:44
[2016-10-31 11:43] VITALS: BP 158/95
--- NOTE | 2016-10-31 11:57 | PDOC ---
Subjective: Subjective: Abd discomfort. Didn't take sandostatin, has questions. Passed a little gas, small amount of stool w/ mucous after supp. Objective: Vital Signs: Vital Signs Date Time Temp Pulse Resp B/P Pulse Ox O2 Delivery O2 Flow Rate FiO2 10/31/16 11:43 98.2 78 18 158/95 95 Nasal Cannula 2.0 98.2 Labs: Laboratory Tests Test 10/31/16 11:24 Glucose (Fingerstick) 127mg/dL (70-99) PE: GEN: NAD LUNGS: decreased anteriorly HEART: RRR ABD: BS+ quiet, some distention and epigastric tenderness NEURO/PSYCH: A & O 3 A/P: Pancreatitis w/ pseudocyst -NPO on TPN Leukocytosis -ID following ?ileus Abd pain, distention -- Added somatostatin yesterday - he wanted to discuss/consider before starting - thinks he will take today. Continue TPN. Could repeat KUB if distention worse. DIOGENES CONN Oct 31, 2016 11:57
[2016-10-31] MEDS: TPN PER PHARMACY MC PRN (13:11)
[2016-10-31] MEDS: IV DEXTROSE 5 %-0.45 % NACL 1,000 ML IV SCH ×3 (15:12→22:10)
[2016-10-31 15:57] VITALS: BP 156/99
[2016-10-31] MEDS: FAMOTIDINE 20 MG/2 ML VIAL IVP SCH (16:00)
[2016-10-31] MEDS: HYDROMORPHONE STANDARD PCA 30 ML IV PRN (18:43)
[2016-10-31 19:00] VITALS: BP 156/98
[2016-10-31] MEDS ORDERED: DEXTROSE 70% IV SCH ×10 (22:00)
[2016-10-31] MEDS ORDERED: TOTAL PARENTERAL NUTRITION IV SCH ×10 (22:00)
[2016-10-31] MEDS ORDERED: AMINO ACIDS IV SCH ×10 (22:00)
[2016-10-31] MEDS ORDERED: [UNRECOGNIZED DRUG - OTHER] IV SCH ×10 (22:00)
[2016-10-31 23:00] VITALS: BP 166/104
[2016-11-01] MEDS: BISACODYL 10 MG SUPP.RECT PR PRN (02:57)
[2016-11-01 03:00] VITALS: BP 148/90
[2016-11-01] MEDS: IV DEXTROSE 5 %-0.45 % NACL 1,000 ML IV SCH ×2 (04:32→08:49)
[2016-11-01] MEDS: OCTREOTIDE 100 MCG/ML VIAL SQ SCH ×3 (06:03→21:41)
[2016-11-01 06:23] LABS: BASO # 0.1 x10^3/uL (0.0-0.2); BASO % 1 % (0-3); EOS % 2 % (0-3); HEMATOCRIT 39.3 % (39.0-53.0); LYMPH # 1.7 x10^3/uL (1.0-4.8); LYMPH % 9 % (24-48); MEAN CORPUSCULAR HEMOGLOBIN 27 pg (25-35); MEAN CORPUSCULAR HGB CONC 33 g/dL (31-37); MEAN CORPUSCULAR VOLUME 81 fL (79-100); MONO % 9 % (0-9); NEUT % 79 % (31-73); PLATELET COUNT 237 x10^3/uL (140-400); RED BLOOD COUNT 4.86 x10^6/uL (4.30-5.70); RED CELL DISTRIBUTION WIDTH 16.2 % (11.5-14.5); WHITE BLOOD COUNT 17.8 x10^3/uL (4.0-11.0)
[2016-11-01 06:52] LABS: CALCIUM 8.2 mg/dL (8.5-10.1); CREATININE 0.6 mg/dL (0.7-1.3); GFR 138.9; MAGNESIUM 1.9 mg/dL (1.8-2.4); POTASSIUM 3.3 mmol/L (3.5-5.1)
[2016-11-01 07:30] VITALS: BP 159/90
[2016-11-01] MEDS: AMLODIPINE BESYLATE 5 MG TABLET PO SCH (08:46)
[2016-11-01 10:05] LABS: % EOS 2 % (0-5)
[2016-11-01 10:06] LABS: ANISOCYTOSIS SLIGHT; PLT ESTIMATE ADEQUATE (ADEQUATE); TOXIC GRANULATION PRESENT
[2016-11-01] MEDS: ENOXAPARIN 40 MG/0.4 ML DISP.SYRIN. SQ SCH (10:36)
[2016-11-01] MEDS: POTASSIUM CL 40MEQ D5-0.45NACL 1,000 ML IV SCH ×2 (10:37→19:45)
[2016-11-01] MEDS: HYDROMORPHONE STANDARD PCA 30 ML IV PRN (10:43)
[2016-11-01] MEDS: TPN PER PHARMACY MC PRN (10:54)
[2016-11-01 11:15] VITALS: BP 135/87
--- NOTE | 2016-11-01 14:08 | PDOC ---
SUBJECTIVE Subjective symptomes controlled. no new complaints, OBJECTIVE Vital Signs Vital Signs Date Time Temp Pulse Resp B/P Pulse Ox O2 Delivery O2 Flow Rate FiO2 11/01/16 11:13 18 92 Nasal Cannula 2.0 11/01/16 10:43 18 92 Nasal Cannula 2.0 11/01/16 08:46 77 148/90 11/01/16 07:50 Nasal Cannula 2.0 11/01/16 07:30 98.3 88 19 159/90 92 Nasal Cannula 2.0 98.3 11/01/16 03:00 98.7 77 19 148/90 90 Nasal Cannula 98.7 10/31/16 23:00 98.8 83 19 166/104 94 Nasal Cannula 98.8 10/31/16 19:55 Room Air 2.0 10/31/16 19:00 98.8 86 19 156/98 94 Nasal Cannula 98.8 10/31/16 18:43 20 Room Air 10/31/16 15:57 98.2 88 16 156/99 95 Nasal Cannula 2.0 98.2 I & O Intake and Output 11/01/16 07:00 # Voids 12 PHYSICAL EXAM Physical Exam lungs decrease BS heart RRR abd distended with decrease BS, mild tenderness ext no edema ASSESSMENT/PLAN Assessment/Plan 1. Acute pancreatitis with hx of alcoholism continue supportive TX, bowel rest, hydration and Symptomes control, TPN for nutrition 2. Hypokalemia, replacing in IVF and TPN 3- DVT prophylaxis Problems: COMMENT Lab Laboratory Tests Test 10/31/16 17:27 11/01/16 06:00 11/01/16 11:16 Glucose (Fingerstick) 120mg/dL (70-99) 120mg/dL (70-99) White Blood Count 17.8x10^3/uL (4.0-11.0) Red Blood Count 4.86x10^6/uL (4.30-5.70) Hemoglobin 13.0g/dL (13.0-17.5) Hematocrit 39.3% (39.0-53.0) Mean Corpuscular Volume 81fL (79-100) Mean Corpuscular Hemoglobin 27pg (25-35) Mean Corpuscular Hemoglobin Concent 33g/dL (31-37) Red Cell Distribution Width 16.2% (11.5-14.5) Platelet Count 237x10^3/uL (140-400) Neutrophils (%) (Auto) 79% (31-73) Lymphocytes (%) (Auto) 9% (24-48) Monocytes (%) (Auto) 9% (0-9) Eosinophils (%) (Auto) 2% (0-3) Basophils (%) (Auto) 1% (0-3) Neutrophils # (Auto) 14.1x10^3uL (1.8-7.7) Lymphocytes # (Auto) 1.7x10^3/uL (1.0-4.8) Monocytes # (Auto) 1.7x10^3/uL (0.0-1.1) Eosinophils # (Auto) 0.3x10^3/uL (0.0-0.7) Basophils # (Auto) 0.1x10^3/uL (0.0-0.2) Segmented Neutrophils % 82% (35-66) Band Neutrophils % 2% (0-9) Lymphocytes % 7% (24-48) Atypical Lymphocytes % (Manual) 1% (0-0) Monocytes % 6% (0-10) Eosinophils % 2% (0-5) Toxic Granulation Present Platelet Estimate Adequate (ADEQUATE) Anisocytosis Slight Sodium Level 135mmol/L (136-145) Potassium Level 3.3mmol/L (3.5-5.1) Chloride Level 96mmol/L (98-107) Carbon Dioxide Level 32mmol/L (21-32) Anion Gap 7 (6-14) Blood Urea Nitrogen 7mg/dL (8-26) Creatinine 0.6mg/dL (0.7-1.3) Estimated GFR (Cockcroft-Gault) 138.9 Glucose Level 119mg/dL (70-99) Calcium Level 8.2mg/dL (8.5-10.1) Phosphorus Level 4.0mg/dL (2.6-4.7) Magnesium Level 1.9mg/dL (1.8-2.4) YOLIS CHANDRA MD Nov 01, 2016 14:08
[2016-11-01 14:30] VITALS: BP 145/92
[2016-11-01] MEDS: FAMOTIDINE 20 MG/2 ML VIAL IVP SCH (17:05)
[2016-11-01 19:00] VITALS: BP 153/89
[2016-11-01] MEDS ORDERED: TOTAL PARENTERAL NUTRITION IV SCH ×10 (22:00)
[2016-11-01] MEDS ORDERED: DEXTROSE 70% IV SCH ×10 (22:00)
[2016-11-01] MEDS ORDERED: [UNRECOGNIZED DRUG - OTHER] IV SCH ×10 (22:00)
[2016-11-01] MEDS ORDERED: AMINO ACIDS IV SCH ×10 (22:00)
[2016-11-01 23:00] VITALS: BP 151/95
[2016-11-01] MEDS ORDERED: ACETAMINOPHEN 325 MG TABLET. PO PRN (23:00)
[2016-11-02 03:00] VITALS: BP 132/85
[2016-11-02] MEDS: POTASSIUM CL 40MEQ D5-0.45NACL 1,000 ML IV SCH ×4 (03:44→22:14)
[2016-11-02] MEDS: OCTREOTIDE 100 MCG/ML VIAL SQ SCH ×3 (04:59→22:14)
[2016-11-02 06:57] LABS: ALBUMIN 2.5 g/dL (3.4-5.0); ALBUMIN/GLOBULIN RATIO 0.7 (1.0-1.7); CALCIUM 8.4 mg/dL (8.5-10.1); CREATININE 0.6 mg/dL (0.7-1.3); GFR 138.9; POTASSIUM 3.8 mmol/L (3.5-5.1); TOTAL BILIRUBIN 0.7 mg/dL (0.2-1.0); TOTAL PROTEIN 6.3 g/dL (6.4-8.2)
[2016-11-02 07:03] LABS: HEMATOCRIT 40.7 % (39.0-53.0); HEMOGLOBIN 13.3 g/dL (13.0-17.5); RED BLOOD COUNT 4.91 x10^6/uL (4.30-5.70); RED CELL DISTRIBUTION WIDTH 16.2 % (11.5-14.5); WHITE BLOOD COUNT 18.2 x10^3/uL (4.0-11.0)
[2016-11-02] MEDS: HYDROMORPHONE STANDARD PCA 30 ML IV PRN (07:38)
[2016-11-02 07:40] VITALS: BP 158/98
[2016-11-02] MEDS: AMLODIPINE BESYLATE 5 MG TABLET PO SCH (09:09)
[2016-11-02] MEDS: TPN PER PHARMACY MC PRN (09:38)
[2016-11-02] MEDS: ENOXAPARIN 40 MG/0.4 ML DISP.SYRIN. SQ SCH (10:44)
[2016-11-02 10:55] VITALS: BP 163/103
--- NOTE | 2016-11-02 11:10 | PDOC ---
SUBJECTIVE Subjective His pain is under fairly good control, he is stable and has no new complaints OBJECTIVE Vital Signs Vital Signs Date Time Temp Pulse Resp B/P Pulse Ox O2 Delivery O2 Flow Rate FiO2 11/02/16 09:09 68 132/85 11/02/16 08:00 Nasal Cannula 2.0 11/02/16 07:40 96.2 71 18 158/98 94 Nasal Cannula 2.0 96.2 11/02/16 07:38 18 96 Nasal Cannula 2.0 11/02/16 03:00 98.4 68 20 132/85 96 Nasal Cannula 2.0 98.4 11/01/16 23:00 101.3 77 16 151/95 90 Nasal Cannula 2.0 101.3 11/01/16 19:10 Nasal Cannula 2.0 11/01/16 19:00 99.1 80 20 153/89 95 Nasal Cannula 2.0 99.1 11/01/16 14:30 98.3 89 21 145/92 92 Nasal Cannula 2.0 98.3 11/01/16 11:15 96.7 84 20 135/87 93 Nasal Cannula 2.0 96.7 11/01/16 11:13 18 92 Nasal Cannula 2.0 I & O Intake and Output 11/02/16 07:00 Intake Total 3825 ml Output Total 2350 ml Balance 1475 ml Intake Oral 0 ml IV Total 3825 ml Output Urine Total 2350 ml PHYSICAL EXAM Physical Exam His abdomen is less bloated today, he had a bowel movement yesterday Otherwise his exam is about the same ASSESSMENT/PLAN Assessment/Plan 1. Acute pancreatitis with hx of alcoholism continue supportive TX, bowel rest, hydration and Symptomes control, TPN for nutrition Plan Repeat CT scan abdomen to check the pancreas soon 2. Hypokalemia, replacing in IVF and TPN 3- DVT prophylaxis Dr. Son will resume care tomorrow Problems: COMMENT Lab Laboratory Tests Test 11/01/16 11:16 11/01/16 16:33 11/01/16 22:50 11/02/16 05:07 Glucose (Fingerstick) 120mg/dL (70-99) 174mg/dL (70-99) 182mg/dL (70-99) 110mg/dL (70-99) Test 11/02/16 05:30 11/02/16 06:40 Sodium Level 137mmol/L (136-145) Potassium Level 3.8mmol/L (3.5-5.1) Chloride Level 98mmol/L (98-107) Carbon Dioxide Level 30mmol/L (21-32) Anion Gap 9 (6-14) Blood Urea Nitrogen 7mg/dL (8-26) Creatinine 0.6mg/dL (0.7-1.3) Estimated GFR (Cockcroft-Gault) 138.9 BUN/Creatinine Ratio 12 (6-20) Glucose Level 101mg/dL (70-99) Calcium Level 8.4mg/dL (8.5-10.1) Total Bilirubin 0.7mg/dL (0.2-1.0) Aspartate Amino Transf (AST/SGOT) 22U/L (15-37) Alanine Aminotransferase (ALT/SGPT) 37U/L (16-63) Alkaline Phosphatase 101U/L (46-116) Total Protein 6.3g/dL (6.4-8.2) Albumin 2.5g/dL (3.4-5.0) Albumin/Globulin Ratio 0.7 (1.0-1.7) White Blood Count 18.2x10^3/uL (4.0-11.0) Red Blood Count 4.91x10^6/uL (4.30-5.70) Hemoglobin 13.3g/dL (13.0-17.5) Hematocrit 40.7% (39.0-53.0) Mean Corpuscular Volume 83fL (79-100) Mean Corpuscular Hemoglobin 27pg (25-35) Mean Corpuscular Hemoglobin Concent 33g/dL (31-37) Red Cell Distribution Width 16.2% (11.5-14.5) Platelet Count 264x10^3/uL (140-400) YOLIS CHANDRA MD Nov 02, 2016 11:10
--- NOTE | 2016-11-02 13:11 | PDOC ---
Infectious Disease Note Subjective Subjective Fever 101.3 + flatus and small stools Abdominal pain rating 7, stable. On RECEIVABLES SPECIALIST TPN ROS ROS GEN: Denies chills, sweats CV: Denies chest pain RESP: Denies shortness of air, cough GI: Denies n/v Vital Sign Vital Signs Vital Signs Date Time Temp Pulse Resp B/P Pulse Ox O2 Delivery O2 Flow Rate FiO2 11/02/16 09:09 68 132/85 11/02/16 08:00 Nasal Cannula 2.0 11/02/16 07:40 96.2 18 94 96.2 Physical Exam PHYSICAL EXAM GENERAL: Resting, arouses easily to name, NAD HEENT: OC/OP clear, missing teeth NECK: Supple, no JVD, no LN LUNGS: Clear HEART: S1S2, no gallop, no murmur ABD: round, soft, Mildly tender to light palpation EXT: No edema, no cyanosis WOMEN'S SOCCER COACH: Oriented x 3, no focal neurologic deficit SKIN: No rash RUE-PICC. clean Labs Lab Laboratory Tests Test 11/01/16 11:16 11/01/16 16:33 11/01/16 22:50 11/02/16 05:07 Glucose (Fingerstick) 120mg/dL (70-99) 174mg/dL (70-99) 182mg/dL (70-99) 110mg/dL (70-99) Test 11/02/16 05:30 11/02/16 06:40 Sodium Level 137mmol/L (136-145) Potassium Level 3.8mmol/L (3.5-5.1) Chloride Level 98mmol/L (98-107) Carbon Dioxide Level 30mmol/L (21-32) Anion Gap 9 (6-14) Blood Urea Nitrogen 7mg/dL (8-26) Creatinine 0.6mg/dL (0.7-1.3) Estimated GFR (Cockcroft-Gault) 138.9 BUN/Creatinine Ratio 12 (6-20) Glucose Level 101mg/dL (70-99) Calcium Level 8.4mg/dL (8.5-10.1) Total Bilirubin 0.7mg/dL (0.2-1.0) Aspartate Amino Transf (AST/SGOT) 22U/L (15-37) Alanine Aminotransferase (ALT/SGPT) 37U/L (16-63) Alkaline Phosphatase 101U/L (46-116) Total Protein 6.3g/dL (6.4-8.2) Albumin 2.5g/dL (3.4-5.0) Albumin/Globulin Ratio 0.7 (1.0-1.7) White Blood Count 18.2x10^3/uL (4.0-11.0) Red Blood Count 4.91x10^6/uL (4.30-5.70) Hemoglobin 13.3g/dL (13.0-17.5) Hematocrit 40.7% (39.0-53.0) Mean Corpuscular Volume 83fL (79-100) Mean Corpuscular Hemoglobin 27pg (25-35) Mean Corpuscular Hemoglobin Concent 33g/dL (31-37) Red Cell Distribution Width 16.2% (11.5-14.5) Platelet Count 264x10^3/uL (140-400) abd/pelvis CT Impression: 1. Development of small left pleural effusion and bibasilar infiltrates or atelectasis. 2. Worsening abdominal and pelvic free fluid with fluid collection noted adjacent to the anterior pancreas and lesser sac region suggestive of pancreatic pseudocyst. No pancreatic necrosis is identified. 3. Diverticulosis. There is wall thickening of the descending colon consistent with either acute diverticulitis or secondary inflammation from adjacent pancreatitis. Objective Assessment Fever Abd pain ? developing Ileus on RECEIVABLES SPECIALIST - can cause leukocytosis and fever Leukocytosis. trending up Pancreatitis. now with pseudocyst on repeat CT. No necrosis or abnormal gas collection Plan Plan of Care Monitor WBC and temp Start meropenem per Dr. Sepulveda Attending Co-Sign The patient was seen and interviewed as well as examined at the bedside. The chart was reviewed. The case was discussed. Agree with the plan of care. CHRIS GREGG APRN Nov 02, 2016 11:22 MONIKA SEPULVEDA MD Nov 02, 2016 13:12
[2016-11-02] MEDS: MEROPENEM 1 GM in IV NORMAL SALINE 100ML 100 ML IV SCH ×2 (13:15→22:14)
[2016-11-02 14:35] VITALS: BP 147/92
[2016-11-02] MEDS: FAMOTIDINE 20 MG/2 ML VIAL IVP SCH (16:33)
[2016-11-02 19:00] VITALS: BP 163/107
[2016-11-02] MEDS ORDERED: AMINO ACIDS IV SCH ×10 (22:00)
[2016-11-02] MEDS ORDERED: [UNRECOGNIZED DRUG - OTHER] IV SCH ×10 (22:00)
[2016-11-02] MEDS ORDERED: DEXTROSE 70% IV SCH ×10 (22:00)
[2016-11-02] MEDS ORDERED: TOTAL PARENTERAL NUTRITION IV SCH ×10 (22:00)
[2016-11-02 23:00] VITALS: BP 147/96
[2016-11-03 03:00] VITALS: BP 151/102
[2016-11-03] MEDS: HYDROMORPHONE STANDARD PCA 30 ML IV PRN (04:00)
[2016-11-03] MEDS: OCTREOTIDE 100 MCG/ML VIAL SQ SCH ×3 (05:44→21:41)
[2016-11-03] MEDS: MEROPENEM 1 GM in IV NORMAL SALINE 100ML 100 ML IV SCH ×3 (05:44→21:41)
[2016-11-03] MEDS: POTASSIUM CL 40MEQ D5-0.45NACL 1,000 ML IV SCH ×2 (05:45→19:31)
[2016-11-03 06:35] LABS: PHOSPHORUS 4.4 mg/dL (2.6-4.7)
[2016-11-03 07:00] VITALS: BP 153/108
[2016-11-03] MEDS: AMLODIPINE BESYLATE 5 MG TABLET PO SCH (08:42)
[2016-11-03] MEDS: ENOXAPARIN 40 MG/0.4 ML DISP.SYRIN. SQ SCH (08:43)
--- NOTE | 2016-11-03 09:50 | PDOC ---
Infectious Disease Note Subjective Subjective Fever 101.3 + flatus and small stools Abdominal pain rating 7, stable. On NETWORK DESIGN ARCHITECT TPN ROS ROS GEN: Denies fevers, chills, sweats HEENT: Denies blurred vision, sore throat CV: Denies chest pain RESP: Denies shortness of air, cough GI: Denies n/v/d NEURO: Denies confusion, dizziness MSK: Denies weakness, joint pain/swelling Vital Sign Vital Signs Vital Signs Date Time Temp Pulse Resp B/P Pulse Ox O2 Delivery O2 Flow Rate FiO2 11/03/16 08:42 78 153/108 11/03/16 07:00 97.9 18 95 Nasal Cannula 2.0 97.9 Physical Exam PHYSICAL EXAM GENERAL: NAD, Alert HEENT: PERRL, OC/OP NECK: Supple, no JVD, no LN LUNGS: Clear HEART: S1S2, no gallop, no murmur ABD: Soft, NT, no organomegaly, no rebound EXT: No edema, no cyanosis NIB FINISHER: Alert, 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, no focal neurologic deficit SKIN: No rash IV: ok Labs Lab Laboratory Tests Test 11/02/16 11:05 11/02/16 16:35 11/03/16 05:48 11/03/16 06:00 Glucose (Fingerstick) 137mg/dL (70-99) 159mg/dL (70-99) 108mg/dL (70-99) Potassium Level 5.0mmol/L (3.5-5.1) Phosphorus Level 4.4mg/dL (2.6-4.7) Magnesium Level 2.0mg/dL (1.8-2.4) Objective Assessment Fever Abd pain ? developing Ileus on NETWORK DESIGN ARCHITECT - can cause leukocytosis and fever Leukocytosis. trending up Pancreatitis. now with pseudocyst on repeat CT. No necrosis or abnormal gas collection Plan Plan of Care Monitor WBC and temp meropenem MONIKA SEPULVEDA MD Nov 03, 2016 09:50
--- NOTE | 2016-11-03 10:35 | PDOC ---
Subjective: Subjective: Has questions about repeating a CT, when he can try eating. Had three small stools (each the size of three Milk Duds melted together) over the weekend. Passing gas. Less pain but still rated 7/10 on MANAGER TITLE. Objective: Vital Signs: Vital Signs Date Time Temp Pulse Resp B/P Pulse Ox O2 Delivery O2 Flow Rate FiO2 11/03/16 08:42 78 153/108 11/03/16 07:00 97.9 18 95 Nasal Cannula 2.0 97.9 Labs: Laboratory Tests Test 11/02/16 11:05 11/02/16 16:35 11/03/16 05:48 11/03/16 06:00 Glucose (Fingerstick) 137mg/dL 159mg/dL 108mg/dL Potassium Level 5.0mmol/L Phosphorus Level 4.4mg/dL Magnesium Level 2.0mg/dL PE: GEN: NAD LUNGS: CTAB anteriorly w/ nasal cannula HEART: RRR ABD: BS+, less distended, less tender NEURO/PSYCH: A & O 3 A/P: Pancreatitis w/ pseudocyst -NPO on TPN -added somatostatin last week Leukocytosis, fever -no fever x 24 hrs -ID following Abd pain, distention - improved -passing gas, has passed small stools -still on MANAGER TITLE -- Symptomatically improved w/ less pain but WBC increased. Will d/w Dr. Mcgovern re: timing/need for repeating CT and continuing somatostatin. ?try DC MANAGER TITLE DIOGENES CONN Nov 03, 2016 10:35
--- NOTE | 2016-11-03 10:56 | PDOC ---
PROGRESS NOTES Subjective Subjective Pt awake and pleasant. Continues to c/o abdominal pain. States pain is controlled on BELLPERSON Dilaudid. Pt NPO, on TPN. Objective Objective Pt awake and alert. NAD at rest. VSS. Afebrile x 24 hours. Abdomen diffusely tender. Vital Signs Date Time Temp Pulse Resp B/P Pulse Ox O2 Delivery O2 Flow Rate FiO2 11/03/16 08:42 78 153/108 11/03/16 07:00 97.9 18 95 Nasal Cannula 2.0 97.9 Intake and Output 11/03/16 07:00 Intake Total 3612 ml Output Total 250 ml Balance 3362 ml Intake Oral 0 ml IV Total 3612 ml Output Urine Total 250 ml # Voids 2 Assessment Assessment Problems Medical Problems: (1) Abdominal pain Status: Acute (2) Leukocytosis Status: Acute (3) Pancreatitis Status: Acute Plan Plan of Care 1. Acute pancreatitis with hx of alcoholism -GI consulting -possible repeat CT today -Lipase 43K upon admission, 344 this am. -WBC 21.8 upon admission. 18 this am. -Pain controlled with BELLPERSON Dilaudid -Ongoing nausea controlled with Zofran prn -KUB on 10/28: "Nonspecific mild gaseous distention of small bowel loops in the central abdomen. Continued progress films could be obtained." -CT on 10/29: pancreatic pseudocyst -PICC placed and TPN initiated on 10/30 2. Hematuria -UA negative for leukocytes, small amt of blood present 3. Hypokalemia, K 3.8 this am -Recheck BMP in am. Pt will need continued TPN and bowel rest for a short duration. SW consulted to help with Dc plans to SNF vs home. 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 Pt willing to start his own TPN at home if needed. Comment Review of Relevant I have reviewed the following items sathya (where applicable) has been applied. Labs Laboratory Tests Test 11/01/16 11:16 11/01/16 16:33 11/01/16 22:50 11/02/16 05:07 Glucose (Fingerstick) 120mg/dL (70-99) 174mg/dL (70-99) 182mg/dL (70-99) 110mg/dL (70-99) Test 11/02/16 05:30 11/02/16 06:40 11/02/16 11:05 11/02/16 16:35 Sodium Level 137mmol/L (136-145) Potassium Level 3.8mmol/L (3.5-5.1) Chloride Level 98mmol/L (98-107) Carbon Dioxide Level 30mmol/L (21-32) Anion Gap 9 (6-14) Blood Urea Nitrogen 7mg/dL (8-26) Creatinine 0.6mg/dL (0.7-1.3) Estimated GFR (Cockcroft-Gault) 138.9 BUN/Creatinine Ratio 12 (6-20) Glucose Level 101mg/dL (70-99) Calcium Level 8.4mg/dL (8.5-10.1) Total Bilirubin 0.7mg/dL (0.2-1.0) Aspartate Amino Transf (AST/SGOT) 22U/L (15-37) Alanine Aminotransferase (ALT/SGPT) 37U/L (16-63) Alkaline Phosphatase 101U/L (46-116) Total Protein 6.3g/dL (6.4-8.2) Albumin 2.5g/dL (3.4-5.0) Albumin/Globulin Ratio 0.7 (1.0-1.7) White Blood Count 18.2x10^3/uL (4.0-11.0) Red Blood Count 4.91x10^6/uL (4.30-5.70) Hemoglobin 13.3g/dL (13.0-17.5) Hematocrit 40.7% (39.0-53.0) Mean Corpuscular Volume 83fL (79-100) Mean Corpuscular Hemoglobin 27pg (25-35) Mean Corpuscular Hemoglobin Concent 33g/dL (31-37) Red Cell Distribution Width 16.2% (11.5-14.5) Platelet Count 264x10^3/uL (140-400) Glucose (Fingerstick) 137mg/dL (70-99) 159mg/dL (70-99) Test 11/03/16 05:48 11/03/16 06:00 Glucose (Fingerstick) 108mg/dL (70-99) Potassium Level 5.0mmol/L (3.5-5.1) Phosphorus Level 4.4mg/dL (2.6-4.7) Magnesium Level 2.0mg/dL (1.8-2.4) Laboratory Tests Test 11/02/16 11:05 11/02/16 16:35 11/03/16 05:48 11/03/16 06:00 Glucose (Fingerstick) 137mg/dL (70-99) 159mg/dL (70-99) 108mg/dL (70-99) Potassium Level 5.0mmol/L (3.5-5.1) Phosphorus Level 4.4mg/dL (2.6-4.7) Magnesium Level 2.0mg/dL (1.8-2.4) Medications Current Medications Aspirin (Children'S Aspirin) 324 mg 1X ONCE PO ; Start 10/24/16 at 20:30; Stop 10/24/16 at 20:31; Status DC Nitroglycerin (Nitrostat) 0.4 mg PRN Q5MIN PRN SL CHEST PAIN Last administered on 10/24/16 20:32; Start 10/24/16 at 20:30 Morphine Sulfate 2 mg PRN Q1HR PRN IV SEVERE PAIN Last administered on 08:03; Start 10/24/16 at 20:30; Stop 10/25/16 at 08:03; Status DC Iohexol (Omnipaque 350 Mg/ml) 90 ml 1X ONCE IV Last administered on 10/24/16 21:48; Start 10/24/16 at 21:30; Stop 10/24/16 at 21:31; Status DC Info (Do NOT chart on this entry -- for MONITORING) 1 each PRN DAILY PRN MC SEE COMMENTS; Start 10/24/16 at 21:15; Stop 10/26/16 at 21:14; Status DC Hydromorphone HCl (Dilaudid) 1 mg 1X ONCE IV Last administered on 10/24/16 21 :31; Start 10/24/16 at 21:45; Stop 10/24/16 at 21:46; Status DC Hydromorphone HCl (Dilaudid) 0.5 mg PRN Q1HR PRN IV SEVERE PAIN Last administered on 10/25/16 05:01; Start 10/24/16 at 21:30; Stop 10/25/16 at 05:01 ; Status DC Ondansetron HCl (Zofran) 4 mg 1X ONCE IV Last administered on 10/24/16 21:31 ; Start 10/24/16 at 21:45; Stop 10/24/16 at 21:46; Status DC Ondansetron HCl (Zofran) 4 mg PRN Q8HRS PRN IV NAUSEA/VOMITING Last administered on 10/25/16 09:30; Start 10/24/16 at 23:00; Stop 10/25/16 at 22:59 ; Status DC Morphine Sulfate 2 mg PRN Q2HR PRN IV SEVERE PAIN; Start 10/24/16 at 23:00; Stop 10/25/16 at 22:59; Status DC Fentanyl Citrate 50 mcg 50 mcg PRN Q2HR PRN IV SEVERE PAIN Last administered on 10/25/16 14:31; Start 10/24/16 at 23:00; Stop 10/25/16 at 22:59; Status DC Sodium Chloride (Iv Sodium Chloride 0.9% 1000ml Bag) 1,000 ml @ 100 mls/hr 1X ONCE IV Last administered on 10/24/16 23:53; Start 10/24/16 at 23:45; Stop at 09:44; Status DC Dicyclomine HCl (Bentyl) 10 mg 1X ONCE IM Last administered on 10/24/16 23:43 ; Start 10/25/16 at 00:00; Stop 10/25/16 at 00:01; Status DC Labetalol HCl (Normodyne) 20 mg PRN Q2HR PRN IVP HYPERTENSION, SEE COMMENTS Last administered on 10/29/16 16:22; Start 10/25/16 at 09:00 Hydromorphone HCl (Dilaudid) 1 mg Q1HR PRN IV PAIN; Start 10/25/16 at 09:30; Stop 10/25/16 at 09:30; Status DC Hydromorphone HCl 1 mg 1 mg PRN Q1HR PRN IV PAIN Last administered on 12:26; Start 10/25/16 at 09:31; Stop 10/25/16 at 13:05; Status DC Magnesium Sulfate/ Dextrose (Magnesium Sulfate PREMIX 2GM) 50 ml @ 25 mls/hr 1X ONCE IV Last administered on 10/25/16 15:45; Start 10/25/16 at 13:00; Stop 10/25/16 at 14:59; Status DC Fluoxetine HCl (Prozac) 20 mg HS PO ; Start 10/25/16 at 21:00; Stop 10/25/16 at 21:00; Status DC Pramipexole Dihydrochloride (miraPEX) 0.25 mg QHS PO ; Start 10/25/16 at 21:00; Stop 10/25/16 at 21:00; Status DC Zolpidem Tartrate (Ambien) 5 mg QHS PO ; Start 10/25/16 at 21:00; Stop 10/25/16 at 21:00; Status DC Zolpidem Tartrate 5 mg 5 mg PRN QHS PRN PO INSOMNIA; Start 10/25/16 at 13:00; Stop 10/25/16 at 13:05; Status DC Hydromorphone HCl (Dilaudid Standard BELLPERSON) 30 ml @ 0 mls/hr CONT PRN PRN IV PROTOCOL Last administered on 11/03/16 04:00; Start 10/25/16 at 13:00 Lorazepam 1 mg 1 mg PRN Q4HRS PRN IV ANXIETY / AGITATION Last administered on 22:21; Start 10/25/16 at 13:00 Dextrose/Sodium Chloride (Iv D5% - 1/2 NS) 1,000 ml @ 150 mls/hr Q6H40M IV Last administered on 11/01/16 08:49; Start 10/25/16 at 13:00; Stop 11/01/16 at 09:49; Status DC Ondansetron HCl (Zofran) 4 mg PRN Q4HRS PRN IV NAUSEA/VOMITING Last administered on 10/31/16 22:21; Start 10/25/16 at 13:45 Famotidine (Pepcid) 40 mg DAILY16 IVP Last administered on 11/02/16 16:33; Start 10/26/16 at 16:00 Amlodipine Besylate (Norvasc) 5 mg DAILY PO Last administered on 11/03/16 08: 42; Start 10/27/16 at 09:00 Ondansetron HCl (Zofran) 4 mg PRN Q6HRS PRN IV NAUSEA/VOMITING; Start 10/27/16 at 08:15; Stop 10/27/16 at 14:47; Status DC Alprazolam (Xanax) 0.5 mg PRN Q8HRS PRN PO ANXIETY / AGITATION Last administered on 10/29/16 21:10; Start 10/27/16 at 08:15 Iohexol (Omnipaque 300 Mg/ml) 75 ml 1X ONCE IV Last administered on 10/29/16 13:57; Start 10/29/16 at 12:45; Stop 10/29/16 at 12:46; Status DC Iohexol (Omnipaque 240 Mg/ml) 30 ml 1X ONCE PO Last administered on 10/29/16 13:57; Start 10/29/16 at 12:45; Stop 10/29/16 at 12:46; Status DC Info 1 each 1 each PRN DAILY PRN MC SEE COMMENTS; Start 10/29/16 at 12:45; Stop 10/31/16 at 12:44; Status DC Potassium Chloride (KCl Premix 10meq) 100 ml @ 100 mls/hr Q1H IV Last administered on 10/30/16 12:39; Start 10/30/16 at 11:00; Stop 10/30/16 at 12:59 ; Status DC Bisacodyl 10 mg 10 mg PRN DAILY PRN [place] CONSTIPATION Last administered on 02:57; Start 10/30/16 at 11:30 Amino Acids/ Glycerin/ Electrolytes (Procalamine) 1,000 ml @ 80 mls/hr [id number] IV Last administered on 10/30/16 12:15; Start 10/30/16 at 12:15; Stop at 21:59; Status DC Info 1 each 1 each PRN DAILY PRN MC SEE COMMENTS Last administered on 09:38; Start 10/30/16 at 12:15 Sodium Chloride 90 meq/Potassium Chloride 50 meq/ Potassium Phosphate 13.6 mmol/ Magnesium Sulfate 10 meq/ Calcium Gluconate 10 meq/ Multivitamins/ Minerals 10 ml/ Chromium/Copper/ Manganese/Seleni/ Zn 1 ml/Total Parenteral Nutrition/Amino Acids/Dextrose/ Fat Emulsion Intravenous 87.0013 ml @ 3.625 mls/hr TPN CONT IV ; Start 10/30/16 at 22:00; Stop 10/31/16 at 21:59; Status UNV Sodium Chloride/ Potassium Chloride/ Potassium Phosphate/ Magnesium Sulfate/ Calcium Gluconate/ Multivitamins/ Minerals/Chromium/ Copper/Manganese/ Seleni/Zn /Total Parenteral Nutrition/Amino Acids/Dextrose/ Fat Emulsion Intravenous ( Sodium Chloride/ Potassium Phospha... 1,512 ml @ 63 mls/hr TPN CONT IV Last administered on 10/30/16 23:51; Start 10/30/16 at 22:00; Stop 10/31/16 at 21:59 ; Status DC Octreotide Acetate 100 mcg 100 mcg Q8HRS SQ Last administered on 11/03/16 05: 44; Start 10/30/16 at 15:00 Potassium Chloride 100 ml @ 100 mls/hr Q1H IV Last administered on 10/30/16 20:00; Start 10/30/16 at 19:00; Stop 10/30/16 at 20:59; Status DC Sodium Chloride 90 meq/Potassium Chloride 80 meq/ Potassium Phosphate 13.6 mmol/ Magnesium Sulfate 10 meq/ Calcium Gluconate 5 meq/ Multivitamins/ Minerals 10 ml / Chromium/Copper/ Manganese/Seleni/ Zn 1 ml/Total Parenteral Nutrition/Amino Acids/Dextrose/ Fat Emulsion Intravenous 1,512 ml @ 63 mls/hr TPN CONT IV Last administered on 10/31/16 22:12; Start 10/31/16 at 22:00; Stop 11/01/16 at 21:59; Status DC Potassium Chloride/Dextrose/ Sod Cl (KCl 40 Meq In D5%-1/2ns Iv Lindsey) 1,000 ml @ 125 mls/hr Q8H IV Last administered on 11/03/16 05:45; Start 11/01/16 at 10: 30 Enoxaparin Sodium 40 mg 40 mg Q24H SQ Last administered on 11/03/16 08:43; Start 11/01/16 at 11:00 Sodium Chloride/ Potassium Chloride/ Potassium Phosphate/ Magnesium Sulfate/ Calcium Gluconate/ Multivitamins/ Minerals/Chromium/ Copper/Manganese/ Seleni/Zn /Total Parenteral Nutrition/Amino Acids/Dextrose/ Fat Emulsion Intravenous ( Sodium Chloride/ Potassium Phospha... 1,512 ml @ 63 mls/hr TPN CONT IV Last administered on 11/01/16 21:41; Start 11/01/16 at 22:00; Stop 11/02/16 at 21:59 ; Status DC Acetaminophen 650 mg 650 mg PRN Q4HRS PRN PO MILD PAIN / TEMP Last administered on 11/01/16 23:06; Start 11/01/16 at 23:00 Sodium Chloride 90 meq/Potassium Chloride 100 meq/ Potassium Phosphate 13.6 mmol /Magnesium Sulfate 10 meq/ Calcium Gluconate 5 meq/ Multivitamins/ Minerals 10 ml/ Chromium/Copper/ Manganese/Seleni/ Zn 1 ml/Total Parenteral Nutrition/Amino Acids/Dextrose/ Fat Emulsion Intravenous 1,512 ml @ 63 mls/hr TPN CONT IV Last administered on 11/02/16 22:15; Start 11/02/16 at 22:00; Stop 11/03/16 at 21:59 Meropenem/Sodium Chloride (Merrem/Iv Sodium Chloride 0.9% 100ml) 100 ml @ 200 mls/hr Q8HRS IV Last administered on 11/03/16 05:44; Start 11/02/16 at 13:30 Active Scripts Active Reported Prestalia 7 mg-5 mg Tablet (Perindopril Arg/Amlodipine Bes) 1 Each Tablet 1 Each PO Zolpidem Tartrate 10 Mg Tablet 1 Tab PO QHS Prozac (Fluoxetine Hcl) 20 Mg Capsule 1 Cap PO HS Mirapex (Pramipexole Di-Hcl) 0.25 Mg Tablet 1 Tab PO QHS Pravastatin Sodium 20 Mg Tablet 1 Tab PO QHS Hydrochlorothiazide Tablet (Hydrochlorothiazide) 12.5 Mg Tablet 1 Tab PO DAILY Vitals/I & O Vital Sign - Last 24 Hours 11/02/16 11/02/16 11/02/16 11/02/16 10:55 14:35 19:00 19:15 Temp 97.7 97.6 97.7 97.7 97.6 97.7 Pulse 72 76 76 Resp 18 18 20 B/P 163/103 147/92 163/107 Pulse Ox 94 96 95 O2 Delivery Nasal Cannula Nasal Cannula Nasal Cannula Nasal Cannula O2 Flow Rate 2.0 2.0 2.0 2.0 11/02/16 11/03/16 11/03/16 11/03/16 23:00 03:00 04:00 04:19 Temp 98.1 97.7 98.1 97.7 Pulse 76 78 Resp 20 20 16 16 B/P 147/96 151/102 Pulse Ox 93 95 95 95 O2 Delivery Nasal Cannula Nasal Cannula Nasal Cannula Nasal Cannula O2 Flow Rate 2.0 2.0 2.0 2.0 11/03/16 11/03/16 07:00 08:42 Temp 97.9 97.9 Pulse 78 78 Resp 18 B/P 153/108 153/108 Pulse Ox 95 O2 Delivery Nasal Cannula O2 Flow Rate 2.0 Intake and Output 11/02/16 11/02/16 11/03/16 15:00 23:00 07:00 Intake Total 2512 ml 1100 ml Output Total 250 ml Balance -250 ml 2512 ml 1100 ml TULIO FRAIRE MD Nov 03, 2016 10:55
[2016-11-03 11:43] VITALS: BP 131/87
[2016-11-03] MEDS: TPN PER PHARMACY MC PRN (13:19)
[2016-11-03 15:06] VITALS: BP 150/99
[2016-11-03] MEDS: FAMOTIDINE 20 MG/2 ML VIAL IVP SCH (18:07)
[2016-11-03 19:00] VITALS: BP 139/96
[2016-11-03] MEDS ORDERED: AMINO ACIDS IV SCH ×10 (22:00)
[2016-11-03] MEDS ORDERED: [UNRECOGNIZED DRUG - OTHER] IV SCH ×10 (22:00)
[2016-11-03] MEDS ORDERED: DEXTROSE 70% IV SCH ×10 (22:00)
[2016-11-03] MEDS ORDERED: TOTAL PARENTERAL NUTRITION IV SCH ×10 (22:00)
[2016-11-03] MEDS: ONDANSETRON PF 4 MG/2 ML VIAL. IV PRN (22:16)
[2016-11-03] MEDS: ALPRAZOLAM 0.25 MG TABLET PO PRN (22:17)
[2016-11-03 23:00] VITALS: BP 156/98
[2016-11-04] MEDS: POTASSIUM CL 40MEQ D5-0.45NACL 1,000 ML IV SCH ×3 (03:04→21:38)
[2016-11-04 03:09] VITALS: BP 166/103
[2016-11-04 05:14] LABS: CALCIUM 8.6 mg/dL (8.5-10.1); CREATININE 0.8 mg/dL (0.7-1.3); GFR 99.6; MAGNESIUM 2.1 mg/dL (1.8-2.4); PHOSPHORUS 4.8 mg/dL (2.6-4.7); POTASSIUM 4.8 mmol/L (3.5-5.1)
[2016-11-04] MEDS: MEROPENEM 1 GM in IV NORMAL SALINE 100ML 100 ML IV SCH ×3 (05:19→21:18)
[2016-11-04] MEDS: OCTREOTIDE 100 MCG/ML VIAL SQ SCH ×3 (05:19→21:20)
[2016-11-04] MEDS: HYDROMORPHONE STANDARD PCA 30 ML IV PRN (05:25)
[2016-11-04 07:30] VITALS: BP 142/95
[2016-11-04] MEDS: AMLODIPINE BESYLATE 5 MG TABLET PO SCH (08:46)
[2016-11-04 09:48] LABS: BASO # 0.2 x10^3/uL (0.0-0.2); BASO % 1 % (0-3); EOS % 1 % (0-3); HEMATOCRIT 42.1 % (39.0-53.0); HEMOGLOBIN 13.7 g/dL (13.0-17.5); LYMPH # 2.3 x10^3/uL (1.0-4.8); LYMPH % 12 % (24-48); MEAN CORPUSCULAR HEMOGLOBIN 27 pg (25-35); MEAN CORPUSCULAR HGB CONC 33 g/dL (31-37); MEAN CORPUSCULAR VOLUME 83 fL (79-100); MONO % 7 % (0-9); NEUT % 79 % (31-73); PLATELET COUNT 300 x10^3/uL (140-400); RED BLOOD COUNT 5.09 x10^6/uL (4.30-5.70); RED CELL DISTRIBUTION WIDTH 16.8 % (11.5-14.5); WHITE BLOOD COUNT 20.2 x10^3/uL (4.0-11.0)
--- NOTE | 2016-11-04 09:56 | PDOC ---
Infectious Disease Note Subjective Subjective feeling better, on liquid diet ROS ROS GEN: Denies fevers, chills, sweats HEENT: Denies blurred vision, sore throat CV: Denies chest pain RESP: Denies shortness of air, cough GI: Denies n/v/d NEURO: Denies confusion, dizziness MSK: Denies weakness, joint pain/swelling Vital Sign Vital Signs Vital Signs Date Time Temp Pulse Resp B/P Pulse Ox O2 Delivery O2 Flow Rate FiO2 11/04/16 08:46 67 142/95 11/04/16 07:30 97.6 18 98 Nasal Cannula 2.0 97.6 Physical Exam PHYSICAL EXAM GENERAL: NAD, Alert HEENT: PERRL, OC/OP NECK: Supple, no JVD, no LN LUNGS: Clear HEART: S1S2, no gallop, no murmur ABD: Soft, NT, no organomegaly, no rebound EXT: No edema, no cyanosis 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, 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, no focal neurologic deficit SKIN: No rash IV: ok Labs Lab Laboratory Tests Test 11/03/16 12:12 11/03/16 17:18 11/04/16 04:10 11/04/16 05:34 Glucose (Fingerstick) 129mg/dL (70-99) 166mg/dL (70-99) 149mg/dL (70-99) Sodium Level 135mmol/L (136-145) Potassium Level 4.8mmol/L (3.5-5.1) Chloride Level 98mmol/L (98-107) Carbon Dioxide Level 27mmol/L (21-32) Anion Gap 10 (6-14) Blood Urea Nitrogen 9mg/dL (8-26) Creatinine 0.8mg/dL (0.7-1.3) Estimated GFR (Cockcroft-Gault) 99.6 Glucose Level 134mg/dL (70-99) Calcium Level 8.6mg/dL (8.5-10.1) Phosphorus Level 4.8mg/dL (2.6-4.7) Magnesium Level 2.1mg/dL (1.8-2.4) Objective Assessment Fever Abd pain ? developing Ileus on [employer] - can cause leukocytosis and fever Leukocytosis. trending up Pancreatitis. now with pseudocyst on repeat CT. No necrosis or abnormal gas collection Plan Plan of Care Monitor WBC and temp meropenem MONIKA SEPULVEDA MD Nov 04, 2016 09:56
--- NOTE | 2016-11-04 10:37 | PDOC ---
PROGRESS NOTES Subjective Subjective Pt awake and pleasant this am. States he continues to has n/v. Pt states he has not been passing gas and has not had a BM since admission. Pt states he did have clear liquids yesterday and developed scapular pain following. Objective Objective Pt awake and alert. NAD at rest. VSS. Afebrile. Vital Signs Date Time Temp Pulse Resp B/P Pulse Ox O2 Delivery O2 Flow Rate FiO2 11/04/16 08:46 67 142/95 11/04/16 07:30 97.6 18 98 Nasal Cannula 2.0 97.6 Intake and Output 11/04/16 07:00 Intake Total 4842 ml Output Total 500 ml Balance 4342 ml Intake Oral 1100 ml IV Total 3742 ml Output Urine Total 500 ml # Voids 2 Assessment Assessment Problems Medical Problems: (1) Abdominal pain Status: Acute (2) Leukocytosis Status: Acute (3) Pancreatitis Status: Acute Plan Plan of Care 1. Acute pancreatitis with hx of alcoholism -GI consulting -Lipase 43K upon admission, 349 on 10/30. -WBC 21.8 upon admission. 20.2 this am. -Pain controlled with [employer] Dilaudid -Ongoing nausea controlled with Zofran prn -KUB on 10/28: "Nonspecific mild gaseous distention of small bowel loops in the central abdomen. Continued progress films could be obtained." -CT on 10/29: pancreatic pseudocyst -possible repeat CT today per GI -PICC placed and TPN initiated on 10/30 -GI advanced diet to clear liq on 11/03. Pt with c/o scapular pain following PO intake. 2. Hematuria -UA negative for leukocytes, small amt of blood present 3. Hypokalemia, K 4.8 this am Pt will need continued TPN and bowel rest for a short duration. SW consulted to help with Dc plans to SNF vs home. 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 Pt willing to start his own TPN at home if needed. Comment Review of Relevant I have reviewed the following items sathya (where applicable) has been applied. Labs Laboratory Tests Test 11/02/16 11:05 11/02/16 16:35 11/03/16 05:48 11/03/16 06:00 Glucose (Fingerstick) 137mg/dL (70-99) 159mg/dL (70-99) 108mg/dL (70-99) Potassium Level 5.0mmol/L (3.5-5.1) Phosphorus Level 4.4mg/dL (2.6-4.7) Magnesium Level 2.0mg/dL (1.8-2.4) Test 11/03/16 12:12 11/03/16 17:18 11/04/16 04:10 11/04/16 05:34 Glucose (Fingerstick) 129mg/dL (70-99) 166mg/dL (70-99) 149mg/dL (70-99) White Blood Count 20.2x10^3/uL (4.0-11.0) Red Blood Count 5.09x10^6/uL (4.30-5.70) Hemoglobin 13.7g/dL (13.0-17.5) Hematocrit 42.1% (39.0-53.0) Mean Corpuscular Volume 83fL (79-100) Mean Corpuscular Hemoglobin 27pg (25-35) Mean Corpuscular Hemoglobin Concent 33g/dL (31-37) Red Cell Distribution Width 16.8% (11.5-14.5) Platelet Count 300x10^3/uL (140-400) Neutrophils (%) (Auto) 79% (31-73) Lymphocytes (%) (Auto) 12% (24-48) Monocytes (%) (Auto) 7% (0-9) Eosinophils (%) (Auto) 1% (0-3) Basophils (%) (Auto) 1% (0-3) Neutrophils # (Auto) 16.0x10^3uL (1.8-7.7) Lymphocytes # (Auto) 2.3x10^3/uL (1.0-4.8) Monocytes # (Auto) 1.4x10^3/uL (0.0-1.1) Eosinophils # (Auto) 0.3x10^3/uL (0.0-0.7) Basophils # (Auto) 0.2x10^3/uL (0.0-0.2) Sodium Level 135mmol/L (136-145) Potassium Level 4.8mmol/L (3.5-5.1) Chloride Level 98mmol/L (98-107) Carbon Dioxide Level 27mmol/L (21-32) Anion Gap 10 (6-14) Blood Urea Nitrogen 9mg/dL (8-26) Creatinine 0.8mg/dL (0.7-1.3) Estimated GFR (Cockcroft-Gault) 99.6 Glucose Level 134mg/dL (70-99) Calcium Level 8.6mg/dL (8.5-10.1) Phosphorus Level 4.8mg/dL (2.6-4.7) Magnesium Level 2.1mg/dL (1.8-2.4) Laboratory Tests Test 11/03/16 12:12 11/03/16 17:18 11/04/16 04:10 11/04/16 05:34 Glucose (Fingerstick) 129mg/dL (70-99) 166mg/dL (70-99) 149mg/dL (70-99) White Blood Count 20.2x10^3/uL (4.0-11.0) Red Blood Count 5.09x10^6/uL (4.30-5.70) Hemoglobin 13.7g/dL (13.0-17.5) Hematocrit 42.1% (39.0-53.0) Mean Corpuscular Volume 83fL (79-100) Mean Corpuscular Hemoglobin 27pg (25-35) Mean Corpuscular Hemoglobin Concent 33g/dL (31-37) Red Cell Distribution Width 16.8% (11.5-14.5) Platelet Count 300x10^3/uL (140-400) Neutrophils (%) (Auto) 79% (31-73) Lymphocytes (%) (Auto) 12% (24-48) Monocytes (%) (Auto) 7% (0-9) Eosinophils (%) (Auto) 1% (0-3) Basophils (%) (Auto) 1% (0-3) Neutrophils # (Auto) 16.0x10^3uL (1.8-7.7) Lymphocytes # (Auto) 2.3x10^3/uL (1.0-4.8) Monocytes # (Auto) 1.4x10^3/uL (0.0-1.1) Eosinophils # (Auto) 0.3x10^3/uL (0.0-0.7) Basophils # (Auto) 0.2x10^3/uL (0.0-0.2) Sodium Level 135mmol/L (136-145) Potassium Level 4.8mmol/L (3.5-5.1) Chloride Level 98mmol/L (98-107) Carbon Dioxide Level 27mmol/L (21-32) Anion Gap 10 (6-14) Blood Urea Nitrogen 9mg/dL (8-26) Creatinine 0.8mg/dL (0.7-1.3) Estimated GFR (Cockcroft-Gault) 99.6 Glucose Level 134mg/dL (70-99) Calcium Level 8.6mg/dL (8.5-10.1) Phosphorus Level 4.8mg/dL (2.6-4.7) Magnesium Level 2.1mg/dL (1.8-2.4) Medications Current Medications Aspirin (Children'S Aspirin) 324 mg 1X ONCE PO ; Start 10/24/16 at 20:30; Stop 10/24/16 at 20:31; Status DC Nitroglycerin (Nitrostat) 0.4 mg PRN Q5MIN PRN SL CHEST PAIN Last administered on 10/24/16 20:32; Start 10/24/16 at 20:30 Morphine Sulfate 2 mg PRN Q1HR PRN IV SEVERE PAIN Last administered on 08:03; Start 10/24/16 at 20:30; Stop 10/25/16 at 08:03; Status DC Iohexol (Omnipaque 350 Mg/ml) 90 ml 1X ONCE IV Last administered on 10/24/16 21:48; Start 10/24/16 at 21:30; Stop 10/24/16 at 21:31; Status DC Info (Do NOT chart on this entry -- for MONITORING) 1 each PRN DAILY PRN MC SEE COMMENTS; Start 10/24/16 at 21:15; Stop 10/26/16 at 21:14; Status DC Hydromorphone HCl (Dilaudid) 1 mg 1X ONCE IV Last administered on 10/24/16 21 :31; Start 10/24/16 at 21:45; Stop 10/24/16 at 21:46; Status DC Hydromorphone HCl (Dilaudid) 0.5 mg PRN Q1HR PRN IV SEVERE PAIN Last administered on 10/25/16 05:01; Start 10/24/16 at 21:30; Stop 10/25/16 at 05:01 ; Status DC Ondansetron HCl (Zofran) 4 mg 1X ONCE IV Last administered on 10/24/16 21:31 ; Start 10/24/16 at 21:45; Stop 10/24/16 at 21:46; Status DC Ondansetron HCl (Zofran) 4 mg PRN Q8HRS PRN IV NAUSEA/VOMITING Last administered on 10/25/16 09:30; Start 10/24/16 at 23:00; Stop 10/25/16 at 22:59 ; Status DC Morphine Sulfate 2 mg PRN Q2HR PRN IV SEVERE PAIN; Start 10/24/16 at 23:00; Stop 10/25/16 at 22:59; Status DC Fentanyl Citrate 50 mcg 50 mcg PRN Q2HR PRN IV SEVERE PAIN Last administered on 10/25/16 14:31; Start 10/24/16 at 23:00; Stop 10/25/16 at 22:59; Status DC Sodium Chloride (Iv Sodium Chloride 0.9% 1000ml Bag) 1,000 ml @ 100 mls/hr 1X ONCE IV Last administered on 10/24/16 23:53; Start 10/24/16 at 23:45; Stop at 09:44; Status DC Dicyclomine HCl (Bentyl) 10 mg 1X ONCE IM Last administered on 10/24/16 23:43 ; Start 10/25/16 at 00:00; Stop 10/25/16 at 00:01; Status DC Labetalol HCl (Normodyne) 20 mg PRN Q2HR PRN IVP HYPERTENSION, SEE COMMENTS Last administered on 10/29/16 16:22; Start 10/25/16 at 09:00 Hydromorphone HCl (Dilaudid) 1 mg Q1HR PRN IV PAIN; Start 10/25/16 at 09:30; Stop 10/25/16 at 09:30; Status DC Hydromorphone HCl 1 mg 1 mg PRN Q1HR PRN IV PAIN Last administered on 12:26; Start 10/25/16 at 09:31; Stop 10/25/16 at 13:05; Status DC Magnesium Sulfate/ Dextrose (Magnesium Sulfate PREMIX 2GM) 50 ml @ 25 mls/hr 1X ONCE IV Last administered on 10/25/16 15:45; Start 10/25/16 at 13:00; Stop 10/25/16 at 14:59; Status DC Fluoxetine HCl (Prozac) 20 mg HS PO ; Start 10/25/16 at 21:00; Stop 10/25/16 at 21:00; Status DC Pramipexole Dihydrochloride (miraPEX) 0.25 mg QHS PO ; Start 10/25/16 at 21:00; Stop 10/25/16 at 21:00; Status DC Zolpidem Tartrate (Ambien) 5 mg QHS PO ; Start 10/25/16 at 21:00; Stop 10/25/16 at 21:00; Status DC Zolpidem Tartrate 5 mg 5 mg PRN QHS PRN PO INSOMNIA; Start 10/25/16 at 13:00; Stop 10/25/16 at 13:05; Status DC Hydromorphone HCl (Dilaudid Standard [employer]) 30 ml @ 0 mls/hr CONT PRN PRN IV PROTOCOL Last administered on 11/04/16 05:25; Start 10/25/16 at 13:00 Lorazepam 1 mg 1 mg PRN Q4HRS PRN IV ANXIETY / AGITATION Last administered on 22:21; Start 10/25/16 at 13:00 Dextrose/Sodium Chloride (Iv D5% - 1/2 NS) 1,000 ml @ 150 mls/hr Q6H40M IV Last administered on 11/01/16 08:49; Start 10/25/16 at 13:00; Stop 11/01/16 at 09:49; Status DC Ondansetron HCl (Zofran) 4 mg PRN Q4HRS PRN IV NAUSEA/VOMITING Last administered on 11/03/16 22:16; Start 10/25/16 at 13:45 Famotidine (Pepcid) 40 mg DAILY16 IVP Last administered on 11/03/16 18:07; Start 10/26/16 at 16:00 Amlodipine Besylate (Norvasc) 5 mg DAILY PO Last administered on 11/04/16 08: 46; Start 10/27/16 at 09:00 Ondansetron HCl (Zofran) 4 mg PRN Q6HRS PRN IV NAUSEA/VOMITING; Start 10/27/16 at 08:15; Stop 10/27/16 at 14:47; Status DC Alprazolam (Xanax) 0.5 mg PRN Q8HRS PRN PO ANXIETY / AGITATION Last administered on 11/03/16 22:17; Start 10/27/16 at 08:15 Iohexol (Omnipaque 300 Mg/ml) 75 ml 1X ONCE IV Last administered on 10/29/16 13:57; Start 10/29/16 at 12:45; Stop 10/29/16 at 12:46; Status DC Iohexol (Omnipaque 240 Mg/ml) 30 ml 1X ONCE PO Last administered on 10/29/16 13:57; Start 10/29/16 at 12:45; Stop 10/29/16 at 12:46; Status DC Info 1 each 1 each PRN DAILY PRN MC SEE COMMENTS; Start 10/29/16 at 12:45; Stop 10/31/16 at 12:44; Status DC Potassium Chloride (KCl Premix 10meq) 100 ml @ 100 mls/hr Q1H IV Last administered on 10/30/16 12:39; Start 10/30/16 at 11:00; Stop 10/30/16 at 12:59 ; Status DC Bisacodyl 10 mg 10 mg PRN DAILY PRN VT CONSTIPATION Last administered on 02:57; Start 10/30/16 at 11:30 Amino Acids/ Glycerin/ Electrolytes (Procalamine) 1,000 ml @ 80 mls/hr [id number] IV Last administered on 10/30/16 12:15; Start 10/30/16 at 12:15; Stop at 21:59; Status DC Info 1 each 1 each PRN DAILY PRN MC SEE COMMENTS Last administered on 13:19; Start 10/30/16 at 12:15 Sodium Chloride 90 meq/Potassium Chloride 50 meq/ Potassium Phosphate 13.6 mmol/ Magnesium Sulfate 10 meq/ Calcium Gluconate 10 meq/ Multivitamins/ Minerals 10 ml/ Chromium/Copper/ Manganese/Seleni/ Zn 1 ml/Total Parenteral Nutrition/Amino Acids/Dextrose/ Fat Emulsion Intravenous 87.0013 ml @ 3.625 mls/hr TPN CONT IV ; Start 10/30/16 at 22:00; Stop 10/31/16 at 21:59; Status UNV Sodium Chloride/ Potassium Chloride/ Potassium Phosphate/ Magnesium Sulfate/ Calcium Gluconate/ Multivitamins/ Minerals/Chromium/ Copper/Manganese/ Seleni/Zn /Total Parenteral Nutrition/Amino Acids/Dextrose/ Fat Emulsion Intravenous ( Sodium Chloride/ Potassium Phospha... 1,512 ml @ 63 mls/hr TPN CONT IV Last administered on 10/30/16 23:51; Start 10/30/16 at 22:00; Stop 10/31/16 at 21:59 ; Status DC Octreotide Acetate 100 mcg 100 mcg Q8HRS SQ Last administered on 11/04/16 05: 19; Start 10/30/16 at 15:00 Potassium Chloride 100 ml @ 100 mls/hr Q1H IV Last administered on 10/30/16 20:00; Start 10/30/16 at 19:00; Stop 10/30/16 at 20:59; Status DC Sodium Chloride 90 meq/Potassium Chloride 80 meq/ Potassium Phosphate 13.6 mmol/ Magnesium Sulfate 10 meq/ Calcium Gluconate 5 meq/ Multivitamins/ Minerals 10 ml / Chromium/Copper/ Manganese/Seleni/ Zn 1 ml/Total Parenteral Nutrition/Amino Acids/Dextrose/ Fat Emulsion Intravenous 1,512 ml @ 63 mls/hr TPN CONT IV Last administered on 10/31/16 22:12; Start 10/31/16 at 22:00; Stop 11/01/16 at 21:59; Status DC Potassium Chloride/Dextrose/ Sod Cl (KCl 40 Meq In D5%-1/2ns Iv Lindsey) 1,000 ml @ 125 mls/hr Q8H IV Last administered on 11/04/16 03:04; Start 11/01/16 at 10: 30 Enoxaparin Sodium 40 mg 40 mg Q24H SQ Last administered on 11/03/16 08:43; Start 11/01/16 at 11:00 Sodium Chloride/ Potassium Chloride/ Potassium Phosphate/ Magnesium Sulfate/ Calcium Gluconate/ Multivitamins/ Minerals/Chromium/ Copper/Manganese/ Seleni/Zn /Total Parenteral Nutrition/Amino Acids/Dextrose/ Fat Emulsion Intravenous ( Sodium Chloride/ Potassium Phospha... 1,512 ml @ 63 mls/hr TPN CONT IV Last administered on 11/01/16 21:41; Start 11/01/16 at 22:00; Stop 11/02/16 at 21:59 ; Status DC Acetaminophen 650 mg 650 mg PRN Q4HRS PRN PO MILD PAIN / TEMP Last administered on 11/01/16 23:06; Start 11/01/16 at 23:00 Sodium Chloride 90 meq/Potassium Chloride 100 meq/ Potassium Phosphate 13.6 mmol /Magnesium Sulfate 10 meq/ Calcium Gluconate 5 meq/ Multivitamins/ Minerals 10 ml/ Chromium/Copper/ Manganese/Seleni/ Zn 1 ml/Total Parenteral Nutrition/Amino Acids/Dextrose/ Fat Emulsion Intravenous 1,512 ml @ 63 mls/hr TPN CONT IV Last administered on 11/02/16 22:15; Start 11/02/16 at 22:00; Stop 11/03/16 at 21:59; Status DC Meropenem 1 gm/ Sodium Chloride 100 ml @ 200 mls/hr Q8HRS IV Last administered on 11/04/16 05:19; Start 11/02/16 at 13:30 Sodium Chloride/ Potassium Chloride/ Potassium Phosphate/ Magnesium Sulfate/ Calcium Gluconate/ Multivitamins/ Minerals/Chromium/ Copper/Manganese/ Seleni/Zn /Total Parenteral Nutrition/Amino Acids/Dextrose/ Fat Emulsion Intravenous ( Sodium Chloride/ Potassium Phospha... 1,512 ml @ 63 mls/hr TPN CONT IV Last administered on 11/03/16 21:42; Start 11/03/16 at 22:00; Stop 11/04/16 at 21:59 Active Scripts Active Reported Prestalia 7 mg-5 mg Tablet (Perindopril Arg/Amlodipine Bes) 1 Each Tablet 1 Each PO Zolpidem Tartrate 10 Mg Tablet 1 Tab PO QHS Prozac (Fluoxetine Hcl) 20 Mg Capsule 1 Cap PO HS Mirapex (Pramipexole Di-Hcl) 0.25 Mg Tablet 1 Tab PO QHS Pravastatin Sodium 20 Mg Tablet 1 Tab PO QHS Hydrochlorothiazide Tablet (Hydrochlorothiazide) 12.5 Mg Tablet 1 Tab PO DAILY Vitals/I & O Vital Sign - Last 24 Hours 11/03/16 11/03/16 11/03/16 11/03/16 11:43 15:06 19:00 19:05 Temp 97.7 97.7 98.1 97.7 97.7 98.1 Pulse 74 76 66 Resp 18 18 20 B/P 131/87 150/99 139/96 Pulse Ox 95 94 91 O2 Delivery Nasal Cannula Nasal Cannula Nasal Cannula Nasal Cannula O2 Flow Rate 2.0 2.0 2.0 11/03/16 11/04/16 11/04/16 11/04/16 23:00 03:09 05:25 05:50 Temp 98.6 98.7 98.6 98.7 Pulse 65 75 Resp 20 20 18 18 B/P 156/98 166/103 Pulse Ox 95 99 99 99 O2 Delivery Nasal Cannula Nasal Cannula Nasal Cannula Nasal Cannula O2 Flow Rate 2.0 2.0 11/04/16 11/04/16 07:30 08:46 Temp 97.6 97.6 Pulse 67 67 Resp 18 B/P 142/95 142/95 Pulse Ox 98 O2 Delivery Nasal Cannula O2 Flow Rate 2.0 Intake and Output 11/03/16 11/03/16 11/04/16 15:00 23:00 07:00 Intake Total 3612 ml 1230 ml Output Total 200 ml 300 ml Balance 3412 ml 930 ml TULIO FRAIRE MD Nov 04, 2016 10:37
--- NOTE | 2016-11-04 10:49 | PDOC ---
Subjective: Subjective: Doing okay, going slow w/ clears. Has had 50-100cc he thinks. Did have some pain afterwards but feels it's not "pancreatitis" pain but "intestinal" pain. 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 Pain 04/13 currently. Wants to go home soon. Again asks about re-imaging. 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 Vital Signs: Vital Signs Date Time Temp Pulse Resp B/P Pulse Ox O2 Delivery O2 Flow Rate FiO2 11/04/16 08:46 67 142/95 11/04/16 07:30 97.6 18 98 Nasal Cannula 2.0 97.6 Labs: Laboratory Tests Test 11/03/16 12:12 11/03/16 17:18 11/04/16 04:10 11/04/16 05:34 Glucose (Fingerstick) 129mg/dL 166mg/dL 149mg/dL White Blood Count 20.2x10^3/uL Red Blood Count 5.09x10^6/uL Hemoglobin 13.7g/dL Hematocrit 42.1% Mean Corpuscular Volume 83fL Mean Corpuscular Hemoglobin 27pg Mean Corpuscular Hemoglobin Concent 33g/dL Red Cell Distribution Width 16.8% Platelet Count 300x10^3/uL Neutrophils (%) (Auto) 79% Lymphocytes (%) (Auto) 12% Monocytes (%) (Auto) 7% Eosinophils (%) (Auto) 1% Basophils (%) (Auto) 1% Neutrophils # (Auto) 16.0x10^3uL Lymphocytes # (Auto) 2.3x10^3/uL Monocytes # (Auto) 1.4x10^3/uL Eosinophils # (Auto) 0.3x10^3/uL Basophils # (Auto) 0.2x10^3/uL Sodium Level 135mmol/L Potassium Level 4.8mmol/L Chloride Level 98mmol/L Carbon Dioxide Level 27mmol/L Anion Gap 10 Blood Urea Nitrogen 9mg/dL Creatinine 0.8mg/dL Estimated GFR (Cockcroft-Gault) 99.6 Glucose Level 134mg/dL Calcium Level 8.6mg/dL Phosphorus Level 4.8mg/dL Magnesium Level 2.1mg/dL PE: GEN: NAD LUNGS: CTAB anteriorly HEART: RRR ABD: softer, less distended, BS+, less discomfort NEURO/PSYCH: A & O 3 A/P: Pancreatitis w/ pseudocyst -on TPN, attempting sips of clears, also somatostatin Leukocytosis - worse -ID following, on IV atbx Abd pain, distention - improved -passing gas, passed small stools over the weekend - feels constipated -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 Consider repeating CT later this week. Would not go beyond sips of clears today. Did discuss using a little Miralax. Will review w/ Dr. Mcgovern re: WBC. DIOGENES CONN Nov 04, 2016 10:49
[2016-11-04] MEDS ORDERED: POLYETHYLENE GLYCOL 3350 17 GM PACKET. PO PRN (11:00)
[2016-11-04 11:15] VITALS: BP 160/99
[2016-11-04] MEDS: ENOXAPARIN 40 MG/0.4 ML DISP.SYRIN. SQ SCH (12:01)
[2016-11-04] MEDS: TPN PER PHARMACY MC PRN (13:43)
[2016-11-04] MEDS ORDERED: IOHEXOL 240 MG/ML 50ML VIAL. PO ONE (14:00)
[2016-11-04] MEDS ORDERED: IOHEXOL 300 MG/ML 75 ML VIAL IV ONE (14:00)
[2016-11-04] MEDS ORDERED: CONTRAST GIVEN MC PRN (14:15)
[2016-11-04 15:00] VITALS: BP 148/61
[2016-11-04] MEDS: FAMOTIDINE 20 MG/2 ML VIAL IVP SCH (16:16)
--- NOTE | 2016-11-04 16:19 | RAD ---
Exam performed: CT abdomen pelvis with contrast. History: Pancreatitis with pseudocyst, increasing white cell count. Date of service: 11/04/16. Comparison: The abdomen and pelvis from 10/29/16. Technique: Contiguous helical acquisitions are obtained through the abdomen and pelvis during intravenous administration of 75 cc of Omnipaque 300. Sagittal and coronal reformatted images are obtained and reviewed. Findings: The lung bases demonstrates linear right basilar atelectasis. The left lung base is essentially clear. Visualized heart is normal. The liver is normal in size and attenuation. Spleen is minimally enlarged. Diffuse peripancreatic stranding and pseudocyst is redemonstrated . There is anterior displacement of the stomach secondary to the pseudocyst which appear slightly larger than on the previous study. It measures 8.4 x 14.4 x 7.7 cm in maximum AP, transverse and craniocaudal dimension (previously measuring 7.0 x 12.1 x 6.0 cm in corresponding dimensions. The degree of inflammatory changes around the anterior aspect of the pseudocyst appear somewhat decreased. There is perhaps decreased free fluid in the right paracolic gutter. The pancreas enhances homogeneously throughout. Both adrenal glands and bilateral kidneys are normal in size with symmetric excretion of contrast via both kidneys. The gallbladder is distended. The small and large bowel loops are nondilated and unremarkable. Diffuse diverticulosis involving the sigmoid colon with extensive wall thickening. No inflammatory changes are seen. The urinary bladder is partially decompressed. Prostate gland, seminal vesicles and the rectum appear normal. Impression: 1. Slight interval increase in the size of previously seen pseudocyst anterior to the pancreas and inferior to the spleen. 2. The degree of peripancreatic stranding appears similar although the amount of fluid in the right paracolic gutter appears decreased. 3. Diffuse sigmoid diverticulosis with wall thickening of the sigmoid colon. PQRS Compliance Statement: One or more of the following individualized dose reduction techniques were utilized for this examination: 1. Automated exposure control 2. Adjustment of the mA and/or kV according to patient size 3. Use of iterative reconstruction technique
[2016-11-04 19:34] VITALS: BP 158/107
[2016-11-04] MEDS ORDERED: AMINO ACIDS IV SCH ×10 (22:00)
[2016-11-04] MEDS ORDERED: TOTAL PARENTERAL NUTRITION IV SCH ×10 (22:00)
[2016-11-04] MEDS ORDERED: [UNRECOGNIZED DRUG - OTHER] IV SCH ×10 (22:00)
[2016-11-04] MEDS ORDERED: DEXTROSE 70% IV SCH ×10 (22:00)
[2016-11-04 23:03] VITALS: BP 156/100
[2016-11-05 03:00] VITALS: BP 152/98
[2016-11-05] MEDS: OCTREOTIDE 100 MCG/ML VIAL SQ SCH ×3 (05:46→21:59)
[2016-11-05] MEDS: MEROPENEM 1 GM in IV NORMAL SALINE 100ML 100 ML IV SCH ×3 (05:46→21:58)
[2016-11-05 07:00] VITALS: BP 146/95
[2016-11-05] MEDS: POTASSIUM CL 40MEQ D5-0.45NACL 1,000 ML IV SCH ×3 (08:10→19:35)
[2016-11-05] MEDS: AMLODIPINE BESYLATE 5 MG TABLET PO SCH (08:10)
--- NOTE | 2016-11-05 10:10 | PDOC ---
Subjective: Subjective: Has questions about CT scan, would like a copy. "No one has showed me a picture of this." Feels about the same. Passing gas, stool. Pain is improved. 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 Frustrated w/ extended hospital stay. Objective: Vital Signs: Vital Signs Date Time Temp Pulse Resp B/P Pulse Ox O2 Delivery O2 Flow Rate FiO2 11/05/16 08:10 76 146/95 11/05/16 07:00 98.6 21 99 Nasal Cannula 98.6 11/05/16 03:00 2.0 Labs: Laboratory Tests Test 11/04/16 13:23 11/04/16 22:25 Glucose (Fingerstick) 136mg/dL (70-99) 133mg/dL (70-99) Imaging: CT A/P w/ oral and IV contrast 11/04/16 Impression: 1. Slight interval increase in the size of previously seen pseudocyst anterior to the pancreas and inferior to the spleen. 2. The degree of peripancreatic stranding appears similar although the amount of fluid in the right paracolic gutter appears decreased. 3. Diffuse sigmoid diverticulosis with wall thickening of the sigmoid colon. 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 CBC pending today. Changed from clears to NPO w/ CT results. Will review w/ Dr. Mcgovern plans for trying PO intake again considering pain is better (even w/ CT results as above). DIOGENES CONN Nov 05, 2016 10:10
[2016-11-05] MEDS: HYDROMORPHONE STANDARD PCA 30 ML IV PRN (10:24)
[2016-11-05 11:03] VITALS: BP 146/95
--- NOTE | 2016-11-05 11:08 | PDOC ---
PROGRESS NOTES Subjective Subjective Pt awake and pleasant this am. States he is feeling better daily. Objective Objective Pt awake and alert. NAD at rest. VSS. Afebrile. Vital Signs Date Time Temp Pulse Resp B/P Pulse Ox O2 Delivery O2 Flow Rate FiO2 11/05/16 11:03 98.9 69 18 146/95 95 98.9 11/05/16 10:24 Nasal Cannula 2.0 Intake and Output 11/05/16 07:00 Intake Total 2420 ml Output Total 600 ml Balance 1820 ml Intake Oral 120 ml IV Total 1200 ml Other 1100 ml Output Urine Total 600 ml # Voids 2 Assessment Assessment Problems Medical Problems: (1) Abdominal pain Status: Acute (2) Leukocytosis Status: Acute (3) Pancreatitis Status: Acute Plan Plan of Care 1. Acute pancreatitis with hx of alcoholism -GI consulting -Lipase 43K upon admission, 349 on 10/30. -WBC 21.8 upon admission. 20.2 on 11/04 -Pain controlled with DELI MANAGER Dilaudid -Ongoing nausea controlled with Zofran prn -KUB on 10/28: "Nonspecific mild gaseous distention of small bowel loops in the central abdomen. Continued progress films could be obtained." -CT on 10/29: pancreatic pseudocyst -Repeat CT on 11/04: Slight interval increase in the size of previously seen pseudocyst anterior to the pancreas and inferior to the spleen. -PICC placed and TPN initiated on 10/30 -GI advanced diet to clear liq on 11/03. Pt with c/o scapular pain following PO intake. 2. Hematuria -UA negative for leukocytes, small amt of blood present 3. Hypokalemia, K 3.7 this am Pt will need continued TPN and bowel rest for a short duration. SW consulted to help with Dc plans to SNF vs home. 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 Pt willing to start his own TPN at home if needed. Comment Review of Relevant I have reviewed the following items sathya (where applicable) has been applied. Labs Laboratory Tests Test 11/03/16 12:12 11/03/16 17:18 11/04/16 04:10 11/04/16 05:34 Glucose (Fingerstick) 129mg/dL (70-99) 166mg/dL (70-99) 149mg/dL (70-99) White Blood Count 20.2x10^3/uL (4.0-11.0) Red Blood Count 5.09x10^6/uL (4.30-5.70) Hemoglobin 13.7g/dL (13.0-17.5) Hematocrit 42.1% (39.0-53.0) Mean Corpuscular Volume 83fL (79-100) Mean Corpuscular Hemoglobin 27pg (25-35) Mean Corpuscular Hemoglobin Concent 33g/dL (31-37) Red Cell Distribution Width 16.8% (11.5-14.5) Platelet Count 300x10^3/uL (140-400) Neutrophils (%) (Auto) 79% (31-73) Lymphocytes (%) (Auto) 12% (24-48) Monocytes (%) (Auto) 7% (0-9) Eosinophils (%) (Auto) 1% (0-3) Basophils (%) (Auto) 1% (0-3) Neutrophils # (Auto) 16.0x10^3uL (1.8-7.7) Lymphocytes # (Auto) 2.3x10^3/uL (1.0-4.8) Monocytes # (Auto) 1.4x10^3/uL (0.0-1.1) Eosinophils # (Auto) 0.3x10^3/uL (0.0-0.7) Basophils # (Auto) 0.2x10^3/uL (0.0-0.2) Sodium Level 135mmol/L (136-145) Potassium Level 4.8mmol/L (3.5-5.1) Chloride Level 98mmol/L (98-107) Carbon Dioxide Level 27mmol/L (21-32) Anion Gap 10 (6-14) Blood Urea Nitrogen 9mg/dL (8-26) Creatinine 0.8mg/dL (0.7-1.3) Estimated GFR (Cockcroft-Gault) 99.6 Glucose Level 134mg/dL (70-99) Calcium Level 8.6mg/dL (8.5-10.1) Phosphorus Level 4.8mg/dL (2.6-4.7) Magnesium Level 2.1mg/dL (1.8-2.4) Lipase 621U/L (73-393) Test 11/04/16 13:23 11/04/16 22:25 11/05/16 06:00 Glucose (Fingerstick) 136mg/dL (70-99) 133mg/dL (70-99) Potassium Level 3.7mmol/L (3.5-5.1) Laboratory Tests Test 11/04/16 13:23 11/04/16 22:25 11/05/16 06:00 Glucose (Fingerstick) 136mg/dL (70-99) 133mg/dL (70-99) Potassium Level 3.7mmol/L (3.5-5.1) Medications Current Medications Aspirin (Children'S Aspirin) 324 mg 1X ONCE PO ; Start 10/24/16 at 20:30; Stop 10/24/16 at 20:31; Status DC Nitroglycerin (Nitrostat) 0.4 mg PRN Q5MIN PRN SL CHEST PAIN Last administered on 10/24/16 20:32; Start 10/24/16 at 20:30 Morphine Sulfate 2 mg PRN Q1HR PRN IV SEVERE PAIN Last administered on 08:03; Start 10/24/16 at 20:30; Stop 10/25/16 at 08:03; Status DC Iohexol (Omnipaque 350 Mg/ml) 90 ml 1X ONCE IV Last administered on 10/24/16 21:48; Start 10/24/16 at 21:30; Stop 10/24/16 at 21:31; Status DC Info (Do NOT chart on this entry -- for MONITORING) 1 each PRN DAILY PRN MC SEE COMMENTS; Start 10/24/16 at 21:15; Stop 10/26/16 at 21:14; Status DC Hydromorphone HCl (Dilaudid) 1 mg 1X ONCE IV Last administered on 10/24/16 21 :31; Start 10/24/16 at 21:45; Stop 10/24/16 at 21:46; Status DC Hydromorphone HCl (Dilaudid) 0.5 mg PRN Q1HR PRN IV SEVERE PAIN Last administered on 10/25/16 05:01; Start 10/24/16 at 21:30; Stop 10/25/16 at 05:01 ; Status DC Ondansetron HCl (Zofran) 4 mg 1X ONCE IV Last administered on 10/24/16 21:31 ; Start 10/24/16 at 21:45; Stop 10/24/16 at 21:46; Status DC Ondansetron HCl (Zofran) 4 mg PRN Q8HRS PRN IV NAUSEA/VOMITING Last administered on 10/25/16 09:30; Start 10/24/16 at 23:00; Stop 10/25/16 at 22:59 ; Status DC Morphine Sulfate 2 mg PRN Q2HR PRN IV SEVERE PAIN; Start 10/24/16 at 23:00; Stop 10/25/16 at 22:59; Status DC Fentanyl Citrate 50 mcg 50 mcg PRN Q2HR PRN IV SEVERE PAIN Last administered on 10/25/16 14:31; Start 10/24/16 at 23:00; Stop 10/25/16 at 22:59; Status DC Sodium Chloride (Iv Sodium Chloride 0.9% 1000ml Bag) 1,000 ml @ 100 mls/hr 1X ONCE IV Last administered on 10/24/16 23:53; Start 10/24/16 at 23:45; Stop at 09:44; Status DC Dicyclomine HCl (Bentyl) 10 mg 1X ONCE IM Last administered on 10/24/16 23:43 ; Start 10/25/16 at 00:00; Stop 10/25/16 at 00:01; Status DC Labetalol HCl (Normodyne) 20 mg PRN Q2HR PRN IVP HYPERTENSION, SEE COMMENTS Last administered on 10/29/16 16:22; Start 10/25/16 at 09:00 Hydromorphone HCl (Dilaudid) 1 mg Q1HR PRN IV PAIN; Start 10/25/16 at 09:30; Stop 10/25/16 at 09:30; Status DC Hydromorphone HCl 1 mg 1 mg PRN Q1HR PRN IV PAIN Last administered on 12:26; Start 10/25/16 at 09:31; Stop 10/25/16 at 13:05; Status DC Magnesium Sulfate/ Dextrose (Magnesium Sulfate PREMIX 2GM) 50 ml @ 25 mls/hr 1X ONCE IV Last administered on 10/25/16 15:45; Start 10/25/16 at 13:00; Stop 10/25/16 at 14:59; Status DC Fluoxetine HCl (Prozac) 20 mg HS PO ; Start 10/25/16 at 21:00; Stop 10/25/16 at 21:00; Status DC Pramipexole Dihydrochloride (miraPEX) 0.25 mg QHS PO ; Start 10/25/16 at 21:00; Stop 10/25/16 at 21:00; Status DC Zolpidem Tartrate (Ambien) 5 mg QHS PO ; Start 10/25/16 at 21:00; Stop 10/25/16 at 21:00; Status DC Zolpidem Tartrate 5 mg 5 mg PRN QHS PRN PO INSOMNIA; Start 10/25/16 at 13:00; Stop 10/25/16 at 13:05; Status DC Hydromorphone HCl (Dilaudid Standard DELI MANAGER) 30 ml @ 0 mls/hr CONT PRN PRN IV PROTOCOL Last administered on 11/05/16 10:24; Start 10/25/16 at 13:00 Lorazepam 1 mg 1 mg PRN Q4HRS PRN IV ANXIETY / AGITATION Last administered on 22:21; Start 10/25/16 at 13:00 Dextrose/Sodium Chloride (Iv D5% - 1/2 NS) 1,000 ml @ 150 mls/hr Q6H40M IV Last administered on 11/01/16 08:49; Start 10/25/16 at 13:00; Stop 11/01/16 at 09:49; Status DC Ondansetron HCl (Zofran) 4 mg PRN Q4HRS PRN IV NAUSEA/VOMITING Last administered on 11/03/16 22:16; Start 10/25/16 at 13:45 Famotidine (Pepcid) 40 mg DAILY16 IVP Last administered on 11/04/16 16:16; Start 10/26/16 at 16:00 Amlodipine Besylate (Norvasc) 5 mg DAILY PO Last administered on 11/05/16 08:10 ; Start 10/27/16 at 09:00 Ondansetron HCl (Zofran) 4 mg PRN Q6HRS PRN IV NAUSEA/VOMITING; Start 10/27/16 at 08:15; Stop 10/27/16 at 14:47; Status DC Alprazolam (Xanax) 0.5 mg PRN Q8HRS PRN PO ANXIETY / AGITATION Last administered on 11/03/16 22:17; Start 10/27/16 at 08:15 Iohexol (Omnipaque 300 Mg/ml) 75 ml 1X ONCE IV Last administered on 10/29/16 13:57; Start 10/29/16 at 12:45; Stop 10/29/16 at 12:46; Status DC Iohexol (Omnipaque 240 Mg/ml) 30 ml 1X ONCE PO Last administered on 10/29/16 13:57; Start 10/29/16 at 12:45; Stop 10/29/16 at 12:46; Status DC Info 1 each 1 each PRN DAILY PRN MC SEE COMMENTS; Start 10/29/16 at 12:45; Stop 10/31/16 at 12:44; Status DC Potassium Chloride (KCl Premix 10meq) 100 ml @ 100 mls/hr Q1H IV Last administered on 10/30/16 12:39; Start 10/30/16 at 11:00; Stop 10/30/16 at 12:59 ; Status DC Bisacodyl 10 mg 10 mg PRN DAILY PRN CO CONSTIPATION Last administered on 02:57; Start 10/30/16 at 11:30 Amino Acids/ Glycerin/ Electrolytes (Procalamine) 1,000 ml @ 80 mls/hr [id number] IV Last administered on 10/30/16 12:15; Start 10/30/16 at 12:15; Stop at 21:59; Status DC Info 1 each 1 each PRN DAILY PRN MC SEE COMMENTS Last administered on 13:43; Start 10/30/16 at 12:15 Sodium Chloride 90 meq/Potassium Chloride 50 meq/ Potassium Phosphate 13.6 mmol/ Magnesium Sulfate 10 meq/ Calcium Gluconate 10 meq/ Multivitamins/ Minerals 10 ml/ Chromium/Copper/ Manganese/Seleni/ Zn 1 ml/Total Parenteral Nutrition/Amino Acids/Dextrose/ Fat Emulsion Intravenous 87.0013 ml @ 3.625 mls/hr TPN CONT IV ; Start 10/30/16 at 22:00; Stop 10/31/16 at 21:59; Status UNV Sodium Chloride/ Potassium Chloride/ Potassium Phosphate/ Magnesium Sulfate/ Calcium Gluconate/ Multivitamins/ Minerals/Chromium/ Copper/Manganese/ Seleni/Zn /Total Parenteral Nutrition/Amino Acids/Dextrose/ Fat Emulsion Intravenous ( Sodium Chloride/ Potassium Phospha... 1,512 ml @ 63 mls/hr TPN CONT IV Last administered on 10/30/16 23:51; Start 10/30/16 at 22:00; Stop 10/31/16 at 21:59 ; Status DC Octreotide Acetate 100 mcg 100 mcg Q8HRS SQ Last administered on 11/05/16 05:46 ; Start 10/30/16 at 15:00 Potassium Chloride 100 ml @ 100 mls/hr Q1H IV Last administered on 10/30/16 20:00; Start 10/30/16 at 19:00; Stop 10/30/16 at 20:59; Status DC Sodium Chloride 90 meq/Potassium Chloride 80 meq/ Potassium Phosphate 13.6 mmol/ Magnesium Sulfate 10 meq/ Calcium Gluconate 5 meq/ Multivitamins/ Minerals 10 ml / Chromium/Copper/ Manganese/Seleni/ Zn 1 ml/Total Parenteral Nutrition/Amino Acids/Dextrose/ Fat Emulsion Intravenous 1,512 ml @ 63 mls/hr TPN CONT IV Last administered on 10/31/16 22:12; Start 10/31/16 at 22:00; Stop 11/01/16 at 21:59; Status DC Potassium Chloride/Dextrose/ Sod Cl (KCl 40 Meq In D5%-1/2ns Iv Lindsey) 1,000 ml @ 125 mls/hr Q8H IV Last administered on 11/05/16 08:10; Start 11/01/16 at 10: 30 Enoxaparin Sodium 40 mg 40 mg Q24H SQ Last administered on 11/04/16 12:01; Start 11/01/16 at 11:00 Sodium Chloride/ Potassium Chloride/ Potassium Phosphate/ Magnesium Sulfate/ Calcium Gluconate/ Multivitamins/ Minerals/Chromium/ Copper/Manganese/ Seleni/Zn /Total Parenteral Nutrition/Amino Acids/Dextrose/ Fat Emulsion Intravenous ( Sodium Chloride/ Potassium Phospha... 1,512 ml @ 63 mls/hr TPN CONT IV Last administered on 11/01/16 21:41; Start 11/01/16 at 22:00; Stop 11/02/16 at 21:59 ; Status DC Acetaminophen 650 mg 650 mg PRN Q4HRS PRN PO MILD PAIN / TEMP Last administered on 11/01/16 23:06; Start 11/01/16 at 23:00 Sodium Chloride 90 meq/Potassium Chloride 100 meq/ Potassium Phosphate 13.6 mmol /Magnesium Sulfate 10 meq/ Calcium Gluconate 5 meq/ Multivitamins/ Minerals 10 ml/ Chromium/Copper/ Manganese/Seleni/ Zn 1 ml/Total Parenteral Nutrition/Amino Acids/Dextrose/ Fat Emulsion Intravenous 1,512 ml @ 63 mls/hr TPN CONT IV Last administered on 11/02/16 22:15; Start 11/02/16 at 22:00; Stop 11/03/16 at 21:59; Status DC Meropenem 1 gm/ Sodium Chloride 100 ml @ 200 mls/hr Q8HRS IV Last administered on 11/05/16 05:46; Start 11/02/16 at 13:30 Sodium Chloride/ Potassium Chloride/ Potassium Phosphate/ Magnesium Sulfate/ Calcium Gluconate/ Multivitamins/ Minerals/Chromium/ Copper/Manganese/ Seleni/Zn /Total Parenteral Nutrition/Amino Acids/Dextrose/ Fat Emulsion Intravenous ( Sodium Chloride/ Potassium Phospha... 1,512 ml @ 63 mls/hr TPN CONT IV Last administered on 11/03/16 21:42; Start 11/03/16 at 22:00; Stop 11/04/16 at 21:59 ; Status DC Polyethylene Glycol 17 gm 17 gm PRN DAILY PRN PO CONSTIPATION; Start 11/04/16 at 11:00 Sodium Chloride/ Potassium Chloride/ Potassium Phosphate/ Magnesium Sulfate/ Calcium Gluconate/ Multivitamins/ Minerals/Chromium/ Copper/Manganese/ Seleni/Zn /Total Parenteral Nutrition/Amino Acids/Dextrose/ Fat Emulsion Intravenous ( Sodium Chloride/ Potassium Phospha... 1,512 ml @ 63 mls/hr TPN CONT IV Last administered on 11/04/16 21:19; Start 11/04/16 at 22:00; Stop 11/05/16 at 21:59 Iohexol (Omnipaque 240 Mg/ml) 50 ml 1X ONCE PO Last administered on 11/04/16 15:09; Start 11/04/16 at 14:00; Stop 11/04/16 at 14:05; Status DC Iohexol (Omnipaque 300 Mg/ml) 75 ml 1X ONCE IV Last administered on 11/04/16t 15:09; Start 11/04/16 at 14:00; Stop 11/04/16 at 14:05; Status DC Info (Do NOT chart on this entry -- for MONITORING) 1 each PRN DAILY PRN MC SEE COMMENTS; Start 11/04/16 at 14:15; Stop 11/06/16 at 14:14 Active Scripts Active Reported Prestalia 7 mg-5 mg Tablet (Perindopril Arg/Amlodipine Bes) 1 Each Tablet 1 Each PO Zolpidem Tartrate 10 Mg Tablet 1 Tab PO QHS Prozac (Fluoxetine Hcl) 20 Mg Capsule 1 Cap PO HS Mirapex (Pramipexole Di-Hcl) 0.25 Mg Tablet 1 Tab PO QHS Pravastatin Sodium 20 Mg Tablet 1 Tab PO QHS Hydrochlorothiazide Tablet (Hydrochlorothiazide) 12.5 Mg Tablet 1 Tab PO DAILY Vitals/I & O Vital Sign - Last 24 Hours 11/04/16 11/04/16 11/04/16 11/04/16 11:15 15:00 19:34 20:00 Temp 98.0 97.9 98.4 98.0 97.9 98.4 Pulse 90 69 70 Resp 18 20 20 B/P 160/99 148/61 158/107 Pulse Ox 99 100 97 O2 Delivery Nasal Cannula Nasal Cannula Room Air Nasal Cannula O2 Flow Rate 2.0 2.0 2.0 11/04/16 11/05/16 11/05/16 11/05/16 23:03 03:00 07:00 08:10 Temp 98.1 98.4 98.6 98.1 98.4 98.6 Pulse 73 65 76 76 Resp 20 16 21 B/P 156/100 152/98 146/95 146/95 Pulse Ox 96 98 99 O2 Delivery Nasal Cannula Nasal Cannula Nasal Cannula O2 Flow Rate 2.0 2.0 11/05/16 11/05/16 10:24 11:03 Temp 98.9 98.9 Pulse 69 Resp 18 B/P 146/95 Pulse Ox 95 O2 Delivery Nasal Cannula O2 Flow Rate 2.0 Intake and Output 11/04/16 11/04/16 11/05/16 15:00 23:00 07:00 Intake Total 1200 ml 1220 ml Output Total 600 ml Balance 600 ml 1220 ml TULIO FRAIRE MD Nov 05, 2016 11:08
[2016-11-05 11:29] LABS: BASO # 0.1 x10^3/uL (0.0-0.2); BASO % 1 % (0-3); EOS % 2 % (0-3); HEMATOCRIT 41.8 % (39.0-53.0); HEMOGLOBIN 13.9 g/dL (13.0-17.5); LYMPH # 2.1 x10^3/uL (1.0-4.8); LYMPH % 11 % (24-48); MEAN CORPUSCULAR HEMOGLOBIN 27 pg (25-35); MEAN CORPUSCULAR HGB CONC 33 g/dL (31-37); MEAN CORPUSCULAR VOLUME 81 fL (79-100); MONO % 5 % (0-9); NEUT % 82 % (31-73); PLATELET COUNT 292 x10^3/uL (140-400); RED BLOOD COUNT 5.13 x10^6/uL (4.30-5.70); RED CELL DISTRIBUTION WIDTH 16.6 % (11.5-14.5); WHITE BLOOD COUNT 19.7 x10^3/uL (4.0-11.0)
[2016-11-05] MEDS: TPN PER PHARMACY MC PRN (12:16)
[2016-11-05] MEDS: ENOXAPARIN 40 MG/0.4 ML DISP.SYRIN. SQ SCH (12:18)
[2016-11-05] MEDS ORDERED: ALTEPLASE 2 MG VIAL INT CAT ONE ×3 (13:00)
[2016-11-05 14:59] VITALS: BP 162/104
[2016-11-05] MEDS: FAMOTIDINE 20 MG/2 ML VIAL IVP SCH (17:00)
[2016-11-05 20:11] VITALS: BP 157/99
[2016-11-05] MEDS ORDERED: AMINO ACIDS IV SCH ×10 (22:00)
[2016-11-05] MEDS ORDERED: TOTAL PARENTERAL NUTRITION IV SCH ×10 (22:00)
[2016-11-05] MEDS ORDERED: DEXTROSE 70% IV SCH ×10 (22:00)
[2016-11-05] MEDS ORDERED: [UNRECOGNIZED DRUG - OTHER] IV SCH ×10 (22:00)
[2016-11-05 23:00] VITALS: BP 157/102
[2016-11-06 03:03] VITALS: BP 150/98
[2016-11-06 05:11] LABS: HEMATOCRIT 40.3 % (39.0-53.0); HEMOGLOBIN 13.2 g/dL (13.0-17.5); RED BLOOD COUNT 4.85 x10^6/uL (4.30-5.70); RED CELL DISTRIBUTION WIDTH 16.5 % (11.5-14.5); WHITE BLOOD COUNT 16.9 x10^3/uL (4.0-11.0)
[2016-11-06] MEDS: POTASSIUM CL 40MEQ D5-0.45NACL 1,000 ML IV SCH (05:11)
[2016-11-06] MEDS: ONDANSETRON PF 4 MG/2 ML VIAL. IV PRN (05:12)
[2016-11-06 05:21] LABS: CALCIUM 8.9 mg/dL (8.5-10.1); CREATININE 0.7 mg/dL (0.7-1.3); GFR 116.2
[2016-11-06] MEDS: OCTREOTIDE 100 MCG/ML VIAL SQ SCH ×3 (05:54→21:38)
[2016-11-06] MEDS: MEROPENEM 1 GM in IV NORMAL SALINE 100ML 100 ML IV SCH ×3 (05:54→21:37)
[2016-11-06 07:20] VITALS: BP 148/100
--- NOTE | 2016-11-06 08:12 | PDOC ---
Infectious Disease Note Subjective Subjective feeling better, on liquid diet ROS ROS GEN: Denies fevers, chills, sweats HEENT: Denies blurred vision, sore throat CV: Denies chest pain RESP: Denies shortness of air, cough GI: Denies n/v/d NEURO: Denies confusion, dizziness MSK: Denies weakness, joint pain/swelling Vital Sign Vital Signs Vital Signs Date Time Temp Pulse Resp B/P Pulse Ox O2 Delivery O2 Flow Rate FiO2 11/06/16 03:03 98.2 60 18 150/98 95 Nasal Cannula 2.0 98.2 Physical Exam PHYSICAL EXAM GENERAL: NAD, Alert HEENT: PERRL, OC/OP NECK: Supple, no JVD, no LN LUNGS: Clear HEART: S1S2, no gallop, no murmur ABD: Soft, NT, no organomegaly, no rebound EXT: No edema, no cyanosis CLINICAL REVIEW NURSE: Alert, 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, no focal neurologic deficit SKIN: No rash IV: ok Labs Lab Laboratory Tests Test 11/05/16 11:06 11/05/16 11:27 11/05/16 16:49 11/05/16 23:13 White Blood Count 19.7x10^3/uL (4.0-11.0) Red Blood Count 5.13x10^6/uL (4.30-5.70) Hemoglobin 13.9g/dL (13.0-17.5) Hematocrit 41.8% (39.0-53.0) Mean Corpuscular Volume 81fL (79-100) Mean Corpuscular Hemoglobin 27pg (25-35) Mean Corpuscular Hemoglobin Concent 33g/dL (31-37) Red Cell Distribution Width 16.6% (11.5-14.5) Platelet Count 292x10^3/uL (140-400) Neutrophils (%) (Auto) 82% (31-73) Lymphocytes (%) (Auto) 11% (24-48) Monocytes (%) (Auto) 5% (0-9) Eosinophils (%) (Auto) 2% (0-3) Basophils (%) (Auto) 1% (0-3) Neutrophils # (Auto) 16.3x10^3uL (1.8-7.7) Lymphocytes # (Auto) 2.1x10^3/uL (1.0-4.8) Monocytes # (Auto) 1.0x10^3/uL (0.0-1.1) Eosinophils # (Auto) 0.3x10^3/uL (0.0-0.7) Basophils # (Auto) 0.1x10^3/uL (0.0-0.2) Glucose (Fingerstick) 143mg/dL (70-99) 163mg/dL (70-99) 129mg/dL (70-99) Test 11/06/16 05:00 11/06/16 05:09 White Blood Count 16.9x10^3/uL (4.0-11.0) Red Blood Count 4.85x10^6/uL (4.30-5.70) Hemoglobin 13.2g/dL (13.0-17.5) Hematocrit 40.3% (39.0-53.0) Mean Corpuscular Volume 83fL (79-100) Mean Corpuscular Hemoglobin 27pg (25-35) Mean Corpuscular Hemoglobin Concent 33g/dL (31-37) Red Cell Distribution Width 16.5% (11.5-14.5) Platelet Count 265x10^3/uL (140-400) Sodium Level 134mmol/L (136-145) Potassium Level 5.0mmol/L (3.5-5.1) Chloride Level 98mmol/L (98-107) Carbon Dioxide Level 28mmol/L (21-32) Anion Gap 8 (6-14) Blood Urea Nitrogen 11mg/dL (8-26) Creatinine 0.7mg/dL (0.7-1.3) Estimated GFR (Cockcroft-Gault) 116.2 Glucose Level 141mg/dL (70-99) Calcium Level 8.9mg/dL (8.5-10.1) Glucose (Fingerstick) 118mg/dL (70-99) Objective Assessment Fever Abd pain leukocytosis and fever Pancreatitis. now with pseudocyst on repeat CT. No necrosis or abnormal gas collection Plan Plan of Care Monitor WBC and temp meropenem MONIKA SEPULVEDA MD Nov 06, 2016 08:12
[2016-11-06] MEDS: AMLODIPINE BESYLATE 5 MG TABLET PO SCH (09:02)
[2016-11-06] MEDS: ENOXAPARIN 40 MG/0.4 ML DISP.SYRIN. SQ SCH (11:08)
[2016-11-06 11:27] VITALS: BP 176/98
--- NOTE | 2016-11-06 11:44 | PDOC ---
Subjective: Subjective: Reports having "the least amount of pain today" since admission, feeling better. "Not paying attention" to how much he uses GIFT CONSULTANT, but feels requiring less. Says he thinks tomorrow he could try off GIFT CONSULTANT. Objective: Vital Signs: Vital Signs Date Time Temp Pulse Resp B/P Pulse Ox O2 Delivery O2 Flow Rate FiO2 11/06/16 11:27 97.9 67 19 176/98 97 Nasal Cannula 1.0 97.9 Labs: Laboratory Tests Test 11/05/16 16:49 11/05/16 23:13 11/06/16 05:00 11/06/16 05:09 Glucose (Fingerstick) 163mg/dL 129mg/dL 118mg/dL White Blood Count 16.9x10^3/uL Red Blood Count 4.85x10^6/uL Hemoglobin 13.2g/dL Hematocrit 40.3% Mean Corpuscular Volume 83fL Mean Corpuscular Hemoglobin 27pg Mean Corpuscular Hemoglobin Concent 33g/dL Red Cell Distribution Width 16.5% Platelet Count 265x10^3/uL Sodium Level 134mmol/L Potassium Level 5.0mmol/L Chloride Level 98mmol/L Carbon Dioxide Level 28mmol/L Anion Gap 8 Blood Urea Nitrogen 11mg/dL Creatinine 0.7mg/dL Estimated GFR (Cockcroft-Gault) 116.2 Glucose Level 141mg/dL Calcium Level 8.9mg/dL Test 11/06/16 11:20 Glucose (Fingerstick) 146mg/dL PE: GEN: NAD LUNGS: CTAB, nasal cannula HEART: RRR ABD: NABS, soft, non-tender, fullness in epigastrium NEURO/PSYCH: A & O 3, more cheerful than yesterday A/P: Pancreatitis w/ pseudocyst -on TPN -3rd CT 11/04 w/ increase in the size of pseudocyst, similar degree of peripancreatic stranding, decreased fluid in paracolic gutter Leukocytosis - improved -on IV atbx per ID, Tmax 100 Abd pain - improved -- Try clears again. If tolerates, hopefully can wean off GIFT CONSULTANT and start to look toward DC. D/w case management. DIOGENES CONN Nov 06, 2016 11:44
[2016-11-06 13:06] LABS: MAGNESIUM 2.1 mg/dL (1.8-2.4)
--- NOTE | 2016-11-06 13:26 | PDOC ---
PROGRESS NOTES Subjective Subjective Pt awake and pleasant. States he is feeling better every day with less pain. Objective Objective Pt awake and alert this am. Tmax 100 last noc. BP consistently elevated since admission. Resp even and unlabored. Lungs CTA bilat. Resp even and unlabored. Heart with RRR. No murmurs. Vital Signs Date Time Temp Pulse Resp B/P Pulse Ox O2 Delivery O2 Flow Rate FiO2 11/06/16 11:27 97.9 67 19 176/98 97 Nasal Cannula 1.0 97.9 Intake and Output 11/06/16 07:00 Intake Total 4486 ml Output Total 1800 ml Balance 2686 ml Intake Oral 960 ml IV Total 3526 ml Output Urine Total 1800 ml Assessment Assessment Problems Medical Problems: (1) Abdominal pain Status: Acute (2) Leukocytosis Status: Acute (3) Pancreatitis Status: Acute Plan Plan of Care 1. Acute pancreatitis with hx of alcoholism -GI consulting -Lipase 43K upon admission, 349 on 10/30. -WBC 21.8 upon admission. 16.9 this am. Trending down -Pain controlled with LAB HEAD Dilaudid, will attempt to Dc tomorrow per GI -Ongoing nausea controlled with Zofran prn -KUB on 10/28: "Nonspecific mild gaseous distention of small bowel loops in the central abdomen. Continued progress films could be obtained." -CT on 10/29: pancreatic pseudocyst -Repeat CT on 11/04: Slight interval increase in the size of previously seen pseudocyst anterior to the pancreas and inferior to the spleen. -PICC placed and TPN initiated on 10/30 -GI advanced diet to clear liq on 11/03. Pt with c/o scapular pain following PO intake. Restarted clear liquids this am. 2. Hematuria -UA negative for leukocytes, small amt of blood present 3. Hypokalemia, K 5.0 on 2.2 4. Elevated BP -Start Lisinopril 20mg, 1 tablet qd Pt will need continued TPN and bowel rest for a short duration. SW consulted to help with Dc plans to SNF vs home. 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 Pt willing to start his own TPN at home if needed. Comment Review of Relevant I have reviewed the following items sathya (where applicable) has been applied. Labs Laboratory Tests Test 11/04/16 13:23 11/04/16 22:25 11/05/16 06:00 11/05/16 11:06 Glucose (Fingerstick) 136mg/dL (70-99) 133mg/dL (70-99) Potassium Level 3.7mmol/L (3.5-5.1) White Blood Count 19.7x10^3/uL (4.0-11.0) Red Blood Count 5.13x10^6/uL (4.30-5.70) Hemoglobin 13.9g/dL (13.0-17.5) Hematocrit 41.8% (39.0-53.0) Mean Corpuscular Volume 81fL (79-100) Mean Corpuscular Hemoglobin 27pg (25-35) Mean Corpuscular Hemoglobin Concent 33g/dL (31-37) Red Cell Distribution Width 16.6% (11.5-14.5) Platelet Count 292x10^3/uL (140-400) Neutrophils (%) (Auto) 82% (31-73) Lymphocytes (%) (Auto) 11% (24-48) Monocytes (%) (Auto) 5% (0-9) Eosinophils (%) (Auto) 2% (0-3) Basophils (%) (Auto) 1% (0-3) Neutrophils # (Auto) 16.3x10^3uL (1.8-7.7) Lymphocytes # (Auto) 2.1x10^3/uL (1.0-4.8) Monocytes # (Auto) 1.0x10^3/uL (0.0-1.1) Eosinophils # (Auto) 0.3x10^3/uL (0.0-0.7) Basophils # (Auto) 0.1x10^3/uL (0.0-0.2) Test 11/05/16 11:27 11/05/16 16:49 11/05/16 23:13 11/06/16 05:00 Glucose (Fingerstick) 143mg/dL (70-99) 163mg/dL (70-99) 129mg/dL (70-99) White Blood Count 16.9x10^3/uL (4.0-11.0) Red Blood Count 4.85x10^6/uL (4.30-5.70) Hemoglobin 13.2g/dL (13.0-17.5) Hematocrit 40.3% (39.0-53.0) Mean Corpuscular Volume 83fL (79-100) Mean Corpuscular Hemoglobin 27pg (25-35) Mean Corpuscular Hemoglobin Concent 33g/dL (31-37) Red Cell Distribution Width 16.5% (11.5-14.5) Platelet Count 265x10^3/uL (140-400) Sodium Level 134mmol/L (136-145) Potassium Level 5.0mmol/L (3.5-5.1) Chloride Level 98mmol/L (98-107) Carbon Dioxide Level 28mmol/L (21-32) Anion Gap 8 (6-14) Blood Urea Nitrogen 11mg/dL (8-26) Creatinine 0.7mg/dL (0.7-1.3) Estimated GFR (Cockcroft-Gault) 116.2 Glucose Level 141mg/dL (70-99) Calcium Level 8.9mg/dL (8.5-10.1) Phosphorus Level 5.0mg/dL (2.6-4.7) Magnesium Level 2.1mg/dL (1.8-2.4) Test 11/06/16 05:09 11/06/16 11:20 Glucose (Fingerstick) 118mg/dL (70-99) 146mg/dL (70-99) Laboratory Tests Test 11/05/16 16:49 11/05/16 23:13 11/06/16 05:00 11/06/16 05:09 Glucose (Fingerstick) 163mg/dL (70-99) 129mg/dL (70-99) 118mg/dL (70-99) White Blood Count 16.9x10^3/uL (4.0-11.0) Red Blood Count 4.85x10^6/uL (4.30-5.70) Hemoglobin 13.2g/dL (13.0-17.5) Hematocrit 40.3% (39.0-53.0) Mean Corpuscular Volume 83fL (79-100) Mean Corpuscular Hemoglobin 27pg (25-35) Mean Corpuscular Hemoglobin Concent 33g/dL (31-37) Red Cell Distribution Width 16.5% (11.5-14.5) Platelet Count 265x10^3/uL (140-400) Sodium Level 134mmol/L (136-145) Potassium Level 5.0mmol/L (3.5-5.1) Chloride Level 98mmol/L (98-107) Carbon Dioxide Level 28mmol/L (21-32) Anion Gap 8 (6-14) Blood Urea Nitrogen 11mg/dL (8-26) Creatinine 0.7mg/dL (0.7-1.3) Estimated GFR (Cockcroft-Gault) 116.2 Glucose Level 141mg/dL (70-99) Calcium Level 8.9mg/dL (8.5-10.1) Phosphorus Level 5.0mg/dL (2.6-4.7) Magnesium Level 2.1mg/dL (1.8-2.4) Test 11/06/16 11:20 Glucose (Fingerstick) 146mg/dL (70-99) Medications Current Medications Aspirin (Children'S Aspirin) 324 mg 1X ONCE PO ; Start 10/24/16 at 20:30; Stop 10/24/16 at 20:31; Status DC Nitroglycerin (Nitrostat) 0.4 mg PRN Q5MIN PRN SL CHEST PAIN Last administered on 10/24/16 20:32; Start 10/24/16 at 20:30 Morphine Sulfate 2 mg PRN Q1HR PRN IV SEVERE PAIN Last administered on 08:03; Start 10/24/16 at 20:30; Stop 10/25/16 at 08:03; Status DC Iohexol (Omnipaque 350 Mg/ml) 90 ml 1X ONCE IV Last administered on 10/24/16 21:48; Start 10/24/16 at 21:30; Stop 10/24/16 at 21:31; Status DC Info (Do NOT chart on this entry -- for MONITORING) 1 each PRN DAILY PRN MC SEE COMMENTS; Start 10/24/16 at 21:15; Stop 10/26/16 at 21:14; Status DC Hydromorphone HCl (Dilaudid) 1 mg 1X ONCE IV Last administered on 10/24/16 21 :31; Start 10/24/16 at 21:45; Stop 10/24/16 at 21:46; Status DC Hydromorphone HCl (Dilaudid) 0.5 mg PRN Q1HR PRN IV SEVERE PAIN Last administered on 10/25/16 05:01; Start 10/24/16 at 21:30; Stop 10/25/16 at 05:01 ; Status DC Ondansetron HCl (Zofran) 4 mg 1X ONCE IV Last administered on 10/24/16 21:31 ; Start 10/24/16 at 21:45; Stop 10/24/16 at 21:46; Status DC Ondansetron HCl (Zofran) 4 mg PRN Q8HRS PRN IV NAUSEA/VOMITING Last administered on 10/25/16 09:30; Start 10/24/16 at 23:00; Stop 10/25/16 at 22:59 ; Status DC Morphine Sulfate 2 mg PRN Q2HR PRN IV SEVERE PAIN; Start 10/24/16 at 23:00; Stop 10/25/16 at 22:59; Status DC Fentanyl Citrate 50 mcg 50 mcg PRN Q2HR PRN IV SEVERE PAIN Last administered on 10/25/16 14:31; Start 10/24/16 at 23:00; Stop 10/25/16 at 22:59; Status DC Sodium Chloride (Iv Sodium Chloride 0.9% 1000ml Bag) 1,000 ml @ 100 mls/hr 1X ONCE IV Last administered on 10/24/16 23:53; Start 10/24/16 at 23:45; Stop at 09:44; Status DC Dicyclomine HCl (Bentyl) 10 mg 1X ONCE IM Last administered on 10/24/16 23:43 ; Start 10/25/16 at 00:00; Stop 10/25/16 at 00:01; Status DC Labetalol HCl (Normodyne) 20 mg PRN Q2HR PRN IVP HYPERTENSION, SEE COMMENTS Last administered on 10/29/16 16:22; Start 10/25/16 at 09:00 Hydromorphone HCl (Dilaudid) 1 mg Q1HR PRN IV PAIN; Start 10/25/16 at 09:30; Stop 10/25/16 at 09:30; Status DC Hydromorphone HCl 1 mg 1 mg PRN Q1HR PRN IV PAIN Last administered on 12:26; Start 10/25/16 at 09:31; Stop 10/25/16 at 13:05; Status DC Magnesium Sulfate/ Dextrose (Magnesium Sulfate PREMIX 2GM) 50 ml @ 25 mls/hr 1X ONCE IV Last administered on 10/25/16 15:45; Start 10/25/16 at 13:00; Stop 10/25/16 at 14:59; Status DC Fluoxetine HCl (Prozac) 20 mg HS PO ; Start 10/25/16 at 21:00; Stop 10/25/16 at 21:00; Status DC Pramipexole Dihydrochloride (miraPEX) 0.25 mg QHS PO ; Start 10/25/16 at 21:00; Stop 10/25/16 at 21:00; Status DC Zolpidem Tartrate (Ambien) 5 mg QHS PO ; Start 10/25/16 at 21:00; Stop 10/25/16 at 21:00; Status DC Zolpidem Tartrate 5 mg 5 mg PRN QHS PRN PO INSOMNIA; Start 10/25/16 at 13:00; Stop 10/25/16 at 13:05; Status DC Hydromorphone HCl (Dilaudid Standard LAB HEAD) 30 ml @ 0 mls/hr CONT PRN PRN IV PROTOCOL Last administered on 11/05/16 10:24; Start 10/25/16 at 13:00 Lorazepam 1 mg 1 mg PRN Q4HRS PRN IV ANXIETY / AGITATION Last administered on 22:21; Start 10/25/16 at 13:00 Dextrose/Sodium Chloride (Iv D5% - 1/2 NS) 1,000 ml @ 150 mls/hr Q6H40M IV Last administered on 11/01/16 08:49; Start 10/25/16 at 13:00; Stop 11/01/16 at 09:49; Status DC Ondansetron HCl (Zofran) 4 mg PRN Q4HRS PRN IV NAUSEA/VOMITING Last administered on 11/06/16 05:12; Start 10/25/16 at 13:45 Famotidine (Pepcid) 40 mg DAILY16 IVP Last administered on 11/05/16 17:00; Start 10/26/16 at 16:00 Amlodipine Besylate (Norvasc) 5 mg DAILY PO Last administered on 11/06/16 09:02 ; Start 10/27/16 at 09:00 Ondansetron HCl (Zofran) 4 mg PRN Q6HRS PRN IV NAUSEA/VOMITING; Start 10/27/16 at 08:15; Stop 10/27/16 at 14:47; Status DC Alprazolam (Xanax) 0.5 mg PRN Q8HRS PRN PO ANXIETY / AGITATION Last administered on 11/03/16 22:17; Start 10/27/16 at 08:15 Iohexol (Omnipaque 300 Mg/ml) 75 ml 1X ONCE IV Last administered on 10/29/16 13:57; Start 10/29/16 at 12:45; Stop 10/29/16 at 12:46; Status DC Iohexol (Omnipaque 240 Mg/ml) 30 ml 1X ONCE PO Last administered on 10/29/16 13:57; Start 10/29/16 at 12:45; Stop 10/29/16 at 12:46; Status DC Info 1 each 1 each PRN DAILY PRN MC SEE COMMENTS; Start 10/29/16 at 12:45; Stop 10/31/16 at 12:44; Status DC Potassium Chloride (KCl Premix 10meq) 100 ml @ 100 mls/hr Q1H IV Last administered on 10/30/16 12:39; Start 10/30/16 at 11:00; Stop 10/30/16 at 12:59 ; Status DC Bisacodyl 10 mg 10 mg PRN DAILY PRN SD CONSTIPATION Last administered on 02:57; Start 10/30/16 at 11:30 Amino Acids/ Glycerin/ Electrolytes (Procalamine) 1,000 ml @ 80 mls/hr [id number] IV Last administered on 10/30/16 12:15; Start 10/30/16 at 12:15; Stop at 21:59; Status DC Info 1 each 1 each PRN DAILY PRN MC SEE COMMENTS Last administered on 11/05/16 12:16; Start 10/30/16 at 12:15 Sodium Chloride 90 meq/Potassium Chloride 50 meq/ Potassium Phosphate 13.6 mmol/ Magnesium Sulfate 10 meq/ Calcium Gluconate 10 meq/ Multivitamins/ Minerals 10 ml/ Chromium/Copper/ Manganese/Seleni/ Zn 1 ml/Total Parenteral Nutrition/Amino Acids/Dextrose/ Fat Emulsion Intravenous 87.0013 ml @ 3.625 mls/hr TPN CONT IV ; Start 10/30/16 at 22:00; Stop 10/31/16 at 21:59; Status UNV Sodium Chloride/ Potassium Chloride/ Potassium Phosphate/ Magnesium Sulfate/ Calcium Gluconate/ Multivitamins/ Minerals/Chromium/ Copper/Manganese/ Seleni/Zn /Total Parenteral Nutrition/Amino Acids/Dextrose/ Fat Emulsion Intravenous ( Sodium Chloride/ Potassium Phospha... 1,512 ml @ 63 mls/hr TPN CONT IV Last administered on 10/30/16 23:51; Start 10/30/16 at 22:00; Stop 10/31/16 at 21:59 ; Status DC Octreotide Acetate 100 mcg 100 mcg Q8HRS SQ Last administered on 11/06/16 05:54 ; Start 10/30/16 at 15:00 Potassium Chloride 100 ml @ 100 mls/hr Q1H IV Last administered on 10/30/16 20:00; Start 10/30/16 at 19:00; Stop 10/30/16 at 20:59; Status DC Sodium Chloride 90 meq/Potassium Chloride 80 meq/ Potassium Phosphate 13.6 mmol/ Magnesium Sulfate 10 meq/ Calcium Gluconate 5 meq/ Multivitamins/ Minerals 10 ml / Chromium/Copper/ Manganese/Seleni/ Zn 1 ml/Total Parenteral Nutrition/Amino Acids/Dextrose/ Fat Emulsion Intravenous 1,512 ml @ 63 mls/hr TPN CONT IV Last administered on 10/31/16 22:12; Start 10/31/16 at 22:00; Stop 11/01/16 at 21:59; Status DC Potassium Chloride/Dextrose/ Sod Cl (KCl 40 Meq In D5%-1/2ns Iv Lindsey) 1,000 ml @ 50 mls/hr Q20H IV Last administered on 11/06/16 05:11; Start 11/01/16 at 10: 30 Enoxaparin Sodium 40 mg 40 mg Q24H SQ Last administered on 11/06/16 11:08; Start 11/01/16 at 11:00 Sodium Chloride/ Potassium Chloride/ Potassium Phosphate/ Magnesium Sulfate/ Calcium Gluconate/ Multivitamins/ Minerals/Chromium/ Copper/Manganese/ Seleni/Zn /Total Parenteral Nutrition/Amino Acids/Dextrose/ Fat Emulsion Intravenous ( Sodium Chloride/ Potassium Phospha... 1,512 ml @ 63 mls/hr TPN CONT IV Last administered on 11/01/16 21:41; Start 11/01/16 at 22:00; Stop 11/02/16 at 21:59 ; Status DC Acetaminophen 650 mg 650 mg PRN Q4HRS PRN PO MILD PAIN / TEMP Last administered on 11/01/16 23:06; Start 11/01/16 at 23:00 Sodium Chloride 90 meq/Potassium Chloride 100 meq/ Potassium Phosphate 13.6 mmol /Magnesium Sulfate 10 meq/ Calcium Gluconate 5 meq/ Multivitamins/ Minerals 10 ml/ Chromium/Copper/ Manganese/Seleni/ Zn 1 ml/Total Parenteral Nutrition/Amino Acids/Dextrose/ Fat Emulsion Intravenous 1,512 ml @ 63 mls/hr TPN CONT IV Last administered on 11/02/16 22:15; Start 11/02/16 at 22:00; Stop 11/03/16 at 21:59; Status DC Meropenem 1 gm/ Sodium Chloride 100 ml @ 200 mls/hr Q8HRS IV Last administered on 11/06/16 05:54; Start 11/02/16 at 13:30 Sodium Chloride/ Potassium Chloride/ Potassium Phosphate/ Magnesium Sulfate/ Calcium Gluconate/ Multivitamins/ Minerals/Chromium/ Copper/Manganese/ Seleni/Zn /Total Parenteral Nutrition/Amino Acids/Dextrose/ Fat Emulsion Intravenous ( Sodium Chloride/ Potassium Phospha... 1,512 ml @ 63 mls/hr TPN CONT IV Last administered on 11/03/16 21:42; Start 11/03/16 at 22:00; Stop 11/04/16 at 21:59 ; Status DC Polyethylene Glycol 17 gm 17 gm PRN DAILY PRN PO CONSTIPATION; Start 11/04/16 at 11:00 Sodium Chloride/ Potassium Chloride/ Potassium Phosphate/ Magnesium Sulfate/ Calcium Gluconate/ Multivitamins/ Minerals/Chromium/ Copper/Manganese/ Seleni/Zn /Total Parenteral Nutrition/Amino Acids/Dextrose/ Fat Emulsion Intravenous ( Sodium Chloride/ Potassium Phospha... 1,512 ml @ 63 mls/hr TPN CONT IV Last administered on 11/04/16 21:19; Start 11/04/16 at 22:00; Stop 11/05/16 at 21:59 ; Status DC Iohexol (Omnipaque 240 Mg/ml) 50 ml 1X ONCE PO Last administered on 11/04/16 15:09; Start 11/04/16 at 14:00; Stop 11/04/16 at 14:05; Status DC Iohexol (Omnipaque 300 Mg/ml) 75 ml 1X ONCE IV Last administered on 11/04/16 15:09; Start 11/04/16 at 14:00; Stop 11/04/16 at 14:05; Status DC Info 1 each 1 each PRN DAILY PRN MC SEE COMMENTS; Start 11/04/16 at 14:15; Stop 11/06/16 at 14:14 Sodium Chloride/ Potassium Chloride/ Potassium Phosphate/ Magnesium Sulfate/ Calcium Gluconate/ Multivitamins/ Minerals/Chromium/ Copper/Manganese/ Seleni/Zn /Total Parenteral Nutrition/Amino Acids/Dextrose/ Fat Emulsion Intravenous ( Sodium Chloride/ Potassium Phospha... 1,512 ml @ 63 mls/hr TPN CONT IV Last administered on 11/05/16 21:58; Start 11/05/16 at 22:00; Stop 11/06/16 at 21:59 Alteplase, Recombinant (Cathflo) 2 mg 1X ONCE INT CAT ; Start 11/05/16 at 13:00 ; Stop 11/05/16 at 13:01; Status DC Alteplase, Recombinant (Cathflo) 2 mg 1X ONCE INT CAT ; Start 11/05/16 at 13:00 ; Stop 11/05/16 at 13:01; Status DC Alteplase, Recombinant 2 mg 2 mg 1X ONCE INT CAT ; Start 11/05/16 at 13:00; Stop 11/05/16 at 13:01; Status DC Sodium Chloride/ Potassium Chloride/ Magnesium Sulfate/ Calcium Gluconate/ Multivitamins/ Minerals/Chromium/ Copper/Manganese/ Seleni/Zn/Total Parenteral Nutrition/Amino Acids/Dextrose/ Fat Emulsion Intravenous (Sodium Chloride/ Infuvite Adult/ Multitrace-5 Conc/ Tpn - Tpn Fluid/ Trophami... 1,512 ml @ 63 mls/hr TPN CONT IV ; Start 11/06/16 at 22:00; Stop 11/07/16 at 21:59 Active Scripts Active Reported Prestalia 7 mg-5 mg Tablet (Perindopril Arg/Amlodipine Bes) 1 Each Tablet 1 Each PO Zolpidem Tartrate 10 Mg Tablet 1 Tab PO QHS Prozac (Fluoxetine Hcl) 20 Mg Capsule 1 Cap PO HS Mirapex (Pramipexole Di-Hcl) 0.25 Mg Tablet 1 Tab PO QHS Pravastatin Sodium 20 Mg Tablet 1 Tab PO QHS Hydrochlorothiazide Tablet (Hydrochlorothiazide) 12.5 Mg Tablet 1 Tab PO DAILY Vitals/I & O Vital Sign - Last 24 Hours 11/05/16 11/05/16 11/05/16 11/05/16 14:59 20:00 20:11 23:00 Temp 98.3 98.2 100.0 98.3 98.2 100.0 Pulse 68 69 72 Resp 20 23 20 B/P 162/104 157/99 157/102 Pulse Ox 95 95 O2 Delivery Nasal Cannula Nasal Cannula Nasal Cannula O2 Flow Rate 2.0 2.0 2.0 11/06/16 11/06/16 11/06/16 11/06/16 03:03 07:20 08:00 08:00 Temp 98.2 98.0 98.2 98.0 Pulse 60 70 Resp 18 19 16 B/P 150/98 148/100 Pulse Ox 95 96 O2 Delivery Nasal Cannula Nasal Cannula Nasal Cannula Nasal Cannula O2 Flow Rate 2.0 2.0 2.0 2.0 11/06/16 11/06/16 11/06/16 09:02 11:10 11:27 Temp 97.9 97.9 Pulse 70 67 Resp 12 19 B/P 148/100 176/98 Pulse Ox 97 O2 Delivery Nasal Cannula Nasal Cannula O2 Flow Rate 2.0 1.0 Intake and Output 11/05/16 11/05/16 11/06/16 15:00 23:00 07:00 Intake Total 1800 ml 1686 ml 1000 ml Output Total 950 ml 850 ml Balance 850 ml 1686 ml 150 ml TULIO FRAIRE MD Nov 06, 2016 13:26
[2016-11-06] MEDS: HYDROMORPHONE STANDARD PCA 30 ML IV PRN (13:33)
[2016-11-06] MEDS: LISINOPRIL 20 MG TABLET PO SCH (13:49)
[2016-11-06] MEDS: TPN PER PHARMACY MC PRN ×2 (14:23→14:29)
[2016-11-06 15:00] VITALS: BP 141/89
[2016-11-06] MEDS: FAMOTIDINE 20 MG/2 ML VIAL IVP SCH (16:03)
[2016-11-06 19:00] VITALS: BP 158/99
[2016-11-06] MEDS ORDERED: TOTAL PARENTERAL NUTRITION IV SCH ×9 (22:00)
[2016-11-06] MEDS ORDERED: AMINO ACIDS IV SCH ×9 (22:00)
[2016-11-06] MEDS ORDERED: [UNRECOGNIZED DRUG - OTHER] IV SCH ×9 (22:00)
[2016-11-06] MEDS ORDERED: DEXTROSE 70% IV SCH ×9 (22:00)
[2016-11-06 23:00] VITALS: BP 155/93
[2016-11-07] MEDS: ONDANSETRON PF 4 MG/2 ML VIAL. IV PRN (01:32)
[2016-11-07 03:02] VITALS: BP 131/75
[2016-11-07 05:46] LABS: CALCIUM 8.9 mg/dL (8.5-10.1); CREATININE 0.7 mg/dL (0.7-1.3); GFR 116.2; MAGNESIUM 2.3 mg/dL (1.8-2.4); PHOSPHORUS 4.3 mg/dL (2.6-4.7); POTASSIUM 4.5 mmol/L (3.5-5.1)
[2016-11-07] MEDS: POTASSIUM CL 40MEQ D5-0.45NACL 1,000 ML IV SCH ×2 (06:15→09:21)
[2016-11-07] MEDS: MEROPENEM 1 GM in IV NORMAL SALINE 100ML 100 ML IV SCH (06:16)
[2016-11-07] MEDS: OCTREOTIDE 100 MCG/ML VIAL SQ SCH ×3 (06:17→20:28)
[2016-11-07 07:19] VITALS: BP 129/89
[2016-11-07] MEDS: LISINOPRIL 20 MG TABLET PO SCH (08:42)
[2016-11-07] MEDS: AMLODIPINE BESYLATE 5 MG TABLET PO SCH (08:42)
--- NOTE | 2016-11-07 08:48 | PDOC ---
Infectious Disease Note Subjective Subjective feeling better, on liquid diet ROS ROS GEN: Denies fevers, chills, sweats HEENT: Denies blurred vision, sore throat CV: Denies chest pain RESP: Denies shortness of air, cough GI: Denies n/v/d NEURO: Denies confusion, dizziness MSK: Denies weakness, joint pain/swelling Vital Sign Vital Signs Vital Signs Date Time Temp Pulse Resp B/P Pulse Ox O2 Delivery O2 Flow Rate FiO2 11/07/16 08:42 72 129/89 11/07/16 08:05 Nasal Cannula 2.0 11/07/16 07:19 98.0 18 93 98.0 Physical Exam PHYSICAL EXAM GENERAL: NAD, Alert HEENT: PERRL, OC/OP NECK: Supple, no JVD, no LN LUNGS: Clear HEART: S1S2, no gallop, no murmur ABD: Soft, NT, no organomegaly, no rebound EXT: No edema, no cyanosis CABLE PLACER: Alert, 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, no focal neurologic deficit SKIN: No rash IV: ok Labs Lab Laboratory Tests Test 11/06/16 11:20 11/06/16 17:16 11/06/16 22:21 11/07/16 04:15 Glucose (Fingerstick) 146mg/dL (70-99) 118mg/dL (70-99) 131mg/dL (70-99) Sodium Level 135mmol/L (136-145) Potassium Level 4.5mmol/L (3.5-5.1) Chloride Level 99mmol/L (98-107) Carbon Dioxide Level 27mmol/L (21-32) Anion Gap 9 (6-14) Blood Urea Nitrogen 14mg/dL (8-26) Creatinine 0.7mg/dL (0.7-1.3) Estimated GFR (Cockcroft-Gault) 116.2 Glucose Level 143mg/dL (70-99) Calcium Level 8.9mg/dL (8.5-10.1) Phosphorus Level 4.3mg/dL (2.6-4.7) Magnesium Level 2.3mg/dL (1.8-2.4) Test 11/07/16 06:47 Glucose (Fingerstick) 121mg/dL (70-99) Objective Assessment Fever Abd pain leukocytosis and fever Pancreatitis. now with pseudocyst on repeat CT. No necrosis or abnormal gas collection Plan Plan of Care Monitor WBC and temp change meropenem to augmentin MONIKA SEPULVEDA MD Nov 07, 2016 08:48
[2016-11-07] MEDS: AMOXICILLIN/K CLAV 875/125MG TABLET. PO SCH ×2 (09:05→20:26)
--- NOTE | 2016-11-07 09:41 | PDOC ---
Subjective: Subjective: Feeling pretty good. Wants to go home. Tolerating clears w/ some nausea last night and a little abd discomfort - thinks this is related to "slow peristalsis." Objective: Objective: Per RN - nausea last night. Vital Signs: Vital Signs Date Time Temp Pulse Resp B/P Pulse Ox O2 Delivery O2 Flow Rate FiO2 11/07/16 08:42 72 129/89 11/07/16 08:05 Nasal Cannula 2.0 11/07/16 07:19 98.0 18 93 98.0 Labs: Laboratory Tests Test 11/06/16 11:20 11/06/16 17:16 11/06/16 22:21 11/07/16 06:47 Glucose (Fingerstick) 146mg/dL (70-99) 118mg/dL (70-99) 131mg/dL (70-99) 121mg/dL (70-99) PE: GEN: NAD LUNGS: clear anteriorly, nasal cannula HEART: RRR ABD: BS+, some epigastric discomfort, soft NEURO/PSYCH: A & O 3 A/P: Pancreatitis w/ pseudocyst -on TPN and [employer], now also tolerating clears -leukocytosis has been trending down, ID switching to oral -abd pain improved -- D/w RN, ID. Try full liquids, ADAT. If tolerates, could DC. Main need eventual drainage of pseudocyst - monitor symptoms as outpatient, repeat CT if needed. DIOGENES CONN Nov 07, 2016 09:41
[2016-11-07 10:41] VITALS: BP_SYST 129; BP_SYST 130; BP_DIAS 79; BP_DIAS 89
[2016-11-07] MEDS: ENOXAPARIN 40 MG/0.4 ML DISP.SYRIN. SQ SCH (11:22)
--- NOTE | 2016-11-07 12:01 | PDOC ---
PROGRESS NOTES Subjective Subjective Pt awake and pleasant. States he continues to feel better each day. Pt tolerated clear liquids without n/v yesterday. Diet advanced per GI this am. Pt states he has little appetite. Objective Objective Pt awake and alert. NAD. VSS. Afebrile. Lungs CTA bilat. Resp even and unlabored. Pt on 2L of O2 per NC. Heart with RRR. No murmurs. Abdomen soft, nondistended, and tender throughout. Vital Signs Date Time Temp Pulse Resp B/P Pulse Ox O2 Delivery O2 Flow Rate FiO2 11/07/16 10:41 98.0 75 18 130/79 96 Nasal Cannula 2.0 98.0 Intake and Output 11/07/16 07:00 Intake Total 2781 ml Balance 2781 ml Intake Oral 1260 ml IV Total 1521 ml # Voids 1 Assessment Assessment Problems Medical Problems: (1) Abdominal pain Status: Acute (2) Leukocytosis Status: Acute (3) Pancreatitis Status: Acute Plan Plan of Care 1. Acute pancreatitis with hx of alcoholism -GI consulting -Lipase 43K upon admission, 349 on 10/30. -WBC 21.8 upon admission. 16.9 this am. Trending down -Pain controlled with RETAIL GREETER Dilaudid, will attempt to Dc tomorrow per GI -Ongoing nausea controlled with Zofran prn -KUB on 10/28: "Nonspecific mild gaseous distention of small bowel loops in the central abdomen. Continued progress films could be obtained." -CT on 10/29: pancreatic pseudocyst -Repeat CT on 11/04: Slight interval increase in the size of previously seen pseudocyst anterior to the pancreas and inferior to the spleen. -PICC placed and TPN initiated on 10/30 -GI advanced diet to clear liq on 11/03. Pt with c/o scapular pain following PO intake. Restarted clear liquids this 11/06. Advanced diet this am. 2. Hematuria -UA negative for leukocytes, small amt of blood present 3. Hypokalemia, K 5.0 on . 4. Elevated BP -Start Lisinopril 20mg, 1 tablet qd on 11/06 -BP 133/76 this am Following GI lead for Dc. Diet advanced this am. If pt tolerates, hopeful for Dc home tomorrow am with f/u with GI as outpt. Comment Review of Relevant I have reviewed the following items sathya (where applicable) has been applied. Labs Laboratory Tests Test 11/05/16 16:49 11/05/16 23:13 11/06/16 05:00 11/06/16 05:09 Glucose (Fingerstick) 163mg/dL (70-99) 129mg/dL (70-99) 118mg/dL (70-99) White Blood Count 16.9x10^3/uL (4.0-11.0) Red Blood Count 4.85x10^6/uL (4.30-5.70) Hemoglobin 13.2g/dL (13.0-17.5) Hematocrit 40.3% (39.0-53.0) Mean Corpuscular Volume 83fL (79-100) Mean Corpuscular Hemoglobin 27pg (25-35) Mean Corpuscular Hemoglobin Concent 33g/dL (31-37) Red Cell Distribution Width 16.5% (11.5-14.5) Platelet Count 265x10^3/uL (140-400) Sodium Level 134mmol/L (136-145) Potassium Level 5.0mmol/L (3.5-5.1) Chloride Level 98mmol/L (98-107) Carbon Dioxide Level 28mmol/L (21-32) Anion Gap 8 (6-14) Blood Urea Nitrogen 11mg/dL (8-26) Creatinine 0.7mg/dL (0.7-1.3) Estimated GFR (Cockcroft-Gault) 116.2 Glucose Level 141mg/dL (70-99) Calcium Level 8.9mg/dL (8.5-10.1) Phosphorus Level 5.0mg/dL (2.6-4.7) Magnesium Level 2.1mg/dL (1.8-2.4) Test 11/06/16 11:20 11/06/16 17:16 11/06/16 22:21 11/07/16 04:15 Glucose (Fingerstick) 146mg/dL (70-99) 118mg/dL (70-99) 131mg/dL (70-99) Sodium Level 135mmol/L (136-145) Potassium Level 4.5mmol/L (3.5-5.1) Chloride Level 99mmol/L (98-107) Carbon Dioxide Level 27mmol/L (21-32) Anion Gap 9 (6-14) Blood Urea Nitrogen 14mg/dL (8-26) Creatinine 0.7mg/dL (0.7-1.3) Estimated GFR (Cockcroft-Gault) 116.2 Glucose Level 143mg/dL (70-99) Calcium Level 8.9mg/dL (8.5-10.1) Phosphorus Level 4.3mg/dL (2.6-4.7) Magnesium Level 2.3mg/dL (1.8-2.4) Test 11/07/16 06:47 Glucose (Fingerstick) 121mg/dL (70-99) Laboratory Tests Test 11/06/16 17:16 11/06/16 22:21 11/07/16 04:15 11/07/16 06:47 Glucose (Fingerstick) 118mg/dL (70-99) 131mg/dL (70-99) 121mg/dL (70-99) Sodium Level 135mmol/L (136-145) Potassium Level 4.5mmol/L (3.5-5.1) Chloride Level 99mmol/L (98-107) Carbon Dioxide Level 27mmol/L (21-32) Anion Gap 9 (6-14) Blood Urea Nitrogen 14mg/dL (8-26) Creatinine 0.7mg/dL (0.7-1.3) Estimated GFR (Cockcroft-Gault) 116.2 Glucose Level 143mg/dL (70-99) Calcium Level 8.9mg/dL (8.5-10.1) Phosphorus Level 4.3mg/dL (2.6-4.7) Magnesium Level 2.3mg/dL (1.8-2.4) Medications Current Medications Aspirin (Children'S Aspirin) 324 mg 1X ONCE PO ; Start 10/24/16 at 20:30; Stop 10/24/16 at 20:31; Status DC Nitroglycerin (Nitrostat) 0.4 mg PRN Q5MIN PRN SL CHEST PAIN Last administered on 10/24/16 20:32; Start 10/24/16 at 20:30 Morphine Sulfate 2 mg PRN Q1HR PRN IV SEVERE PAIN Last administered on 08:03; Start 10/24/16 at 20:30; Stop 10/25/16 at 08:03; Status DC Iohexol (Omnipaque 350 Mg/ml) 90 ml 1X ONCE IV Last administered on 10/24/16 21:48; Start 10/24/16 at 21:30; Stop 10/24/16 at 21:31; Status DC Info (Do NOT chart on this entry -- for MONITORING) 1 each PRN DAILY PRN MC SEE COMMENTS; Start 10/24/16 at 21:15; Stop 10/26/16 at 21:14; Status DC Hydromorphone HCl (Dilaudid) 1 mg 1X ONCE IV Last administered on 10/24/16 21 :31; Start 10/24/16 at 21:45; Stop 10/24/16 at 21:46; Status DC Hydromorphone HCl (Dilaudid) 0.5 mg PRN Q1HR PRN IV SEVERE PAIN Last administered on 10/25/16 05:01; Start 10/24/16 at 21:30; Stop 10/25/16 at 05:01 ; Status DC Ondansetron HCl (Zofran) 4 mg 1X ONCE IV Last administered on 10/24/16 21:31 ; Start 10/24/16 at 21:45; Stop 10/24/16 at 21:46; Status DC Ondansetron HCl (Zofran) 4 mg PRN Q8HRS PRN IV NAUSEA/VOMITING Last administered on 10/25/16 09:30; Start 10/24/16 at 23:00; Stop 10/25/16 at 22:59 ; Status DC Morphine Sulfate 2 mg PRN Q2HR PRN IV SEVERE PAIN; Start 10/24/16 at 23:00; Stop 10/25/16 at 22:59; Status DC Fentanyl Citrate 50 mcg 50 mcg PRN Q2HR PRN IV SEVERE PAIN Last administered on 10/25/16 14:31; Start 10/24/16 at 23:00; Stop 10/25/16 at 22:59; Status DC Sodium Chloride (Iv Sodium Chloride 0.9% 1000ml Bag) 1,000 ml @ 100 mls/hr 1X ONCE IV Last administered on 10/24/16 23:53; Start 10/24/16 at 23:45; Stop at 09:44; Status DC Dicyclomine HCl (Bentyl) 10 mg 1X ONCE IM Last administered on 10/24/16 23:43 ; Start 10/25/16 at 00:00; Stop 10/25/16 at 00:01; Status DC Labetalol HCl (Normodyne) 20 mg PRN Q2HR PRN IVP HYPERTENSION, SEE COMMENTS Last administered on 10/29/16 16:22; Start 10/25/16 at 09:00 Hydromorphone HCl (Dilaudid) 1 mg Q1HR PRN IV PAIN; Start 10/25/16 at 09:30; Stop 10/25/16 at 09:30; Status DC Hydromorphone HCl 1 mg 1 mg PRN Q1HR PRN IV PAIN Last administered on 12:26; Start 10/25/16 at 09:31; Stop 10/25/16 at 13:05; Status DC Magnesium Sulfate/ Dextrose (Magnesium Sulfate PREMIX 2GM) 50 ml @ 25 mls/hr 1X ONCE IV Last administered on 10/25/16 15:45; Start 10/25/16 at 13:00; Stop 10/25/16 at 14:59; Status DC Fluoxetine HCl (Prozac) 20 mg HS PO ; Start 10/25/16 at 21:00; Stop 10/25/16 at 21:00; Status DC Pramipexole Dihydrochloride (miraPEX) 0.25 mg QHS PO ; Start 10/25/16 at 21:00; Stop 10/25/16 at 21:00; Status DC Zolpidem Tartrate (Ambien) 5 mg QHS PO ; Start 10/25/16 at 21:00; Stop 10/25/16 at 21:00; Status DC Zolpidem Tartrate 5 mg 5 mg PRN QHS PRN PO INSOMNIA; Start 10/25/16 at 13:00; Stop 10/25/16 at 13:05; Status DC Hydromorphone HCl (Dilaudid Standard RETAIL GREETER) 30 ml @ 0 mls/hr CONT PRN PRN IV PROTOCOL Last administered on 11/06/16 13:33; Start 10/25/16 at 13:00 Lorazepam 1 mg 1 mg PRN Q4HRS PRN IV ANXIETY / AGITATION Last administered on 22:21; Start 10/25/16 at 13:00 Dextrose/Sodium Chloride (Iv D5% - 1/2 NS) 1,000 ml @ 150 mls/hr Q6H40M IV Last administered on 11/01/16 08:49; Start 10/25/16 at 13:00; Stop 11/01/16 at 09:49; Status DC Ondansetron HCl (Zofran) 4 mg PRN Q4HRS PRN IV NAUSEA/VOMITING Last administered on 11/07/16 01:32; Start 10/25/16 at 13:45 Famotidine (Pepcid) 40 mg DAILY16 IVP Last administered on 11/06/16 16:03; Start 10/26/16 at 16:00 Amlodipine Besylate (Norvasc) 5 mg DAILY PO Last administered on 11/07/16 08:42 ; Start 10/27/16 at 09:00 Ondansetron HCl (Zofran) 4 mg PRN Q6HRS PRN IV NAUSEA/VOMITING; Start 10/27/16 at 08:15; Stop 10/27/16 at 14:47; Status DC Alprazolam (Xanax) 0.5 mg PRN Q8HRS PRN PO ANXIETY / AGITATION Last administered on 11/03/16 22:17; Start 10/27/16 at 08:15 Iohexol (Omnipaque 300 Mg/ml) 75 ml 1X ONCE IV Last administered on 10/29/16 13:57; Start 10/29/16 at 12:45; Stop 10/29/16 at 12:46; Status DC Iohexol (Omnipaque 240 Mg/ml) 30 ml 1X ONCE PO Last administered on 10/29/16 13:57; Start 10/29/16 at 12:45; Stop 10/29/16 at 12:46; Status DC Info 1 each 1 each PRN DAILY PRN MC SEE COMMENTS; Start 10/29/16 at 12:45; Stop 10/31/16 at 12:44; Status DC Potassium Chloride (KCl Premix 10meq) 100 ml @ 100 mls/hr Q1H IV Last administered on 10/30/16 12:39; Start 10/30/16 at 11:00; Stop 10/30/16 at 12:59 ; Status DC Bisacodyl 10 mg 10 mg PRN DAILY PRN DE CONSTIPATION Last administered on 02:57; Start 10/30/16 at 11:30 Amino Acids/ Glycerin/ Electrolytes (Procalamine) 1,000 ml @ 80 mls/hr [id number] IV Last administered on 10/30/16 12:15; Start 10/30/16 at 12:15; Stop at 21:59; Status DC Info 1 each 1 each PRN DAILY PRN MC SEE COMMENTS Last administered on 11/06/16 14:29; Start 10/30/16 at 12:15 Sodium Chloride 90 meq/Potassium Chloride 50 meq/ Potassium Phosphate 13.6 mmol/ Magnesium Sulfate 10 meq/ Calcium Gluconate 10 meq/ Multivitamins/ Minerals 10 ml/ Chromium/Copper/ Manganese/Seleni/ Zn 1 ml/Total Parenteral Nutrition/Amino Acids/Dextrose/ Fat Emulsion Intravenous 87.0013 ml @ 3.625 mls/hr TPN CONT IV ; Start 10/30/16 at 22:00; Stop 10/31/16 at 21:59; Status UNV Sodium Chloride/ Potassium Chloride/ Potassium Phosphate/ Magnesium Sulfate/ Calcium Gluconate/ Multivitamins/ Minerals/Chromium/ Copper/Manganese/ Seleni/Zn /Total Parenteral Nutrition/Amino Acids/Dextrose/ Fat Emulsion Intravenous ( Sodium Chloride/ Potassium Phospha... 1,512 ml @ 63 mls/hr TPN CONT IV Last administered on 10/30/16 23:51; Start 10/30/16 at 22:00; Stop 10/31/16 at 21:59 ; Status DC Octreotide Acetate 100 mcg 100 mcg Q8HRS SQ Last administered on 11/07/16 06:17 ; Start 10/30/16 at 15:00 Potassium Chloride 100 ml @ 100 mls/hr Q1H IV Last administered on 10/30/16 20:00; Start 10/30/16 at 19:00; Stop 10/30/16 at 20:59; Status DC Sodium Chloride 90 meq/Potassium Chloride 80 meq/ Potassium Phosphate 13.6 mmol/ Magnesium Sulfate 10 meq/ Calcium Gluconate 5 meq/ Multivitamins/ Minerals 10 ml / Chromium/Copper/ Manganese/Seleni/ Zn 1 ml/Total Parenteral Nutrition/Amino Acids/Dextrose/ Fat Emulsion Intravenous 1,512 ml @ 63 mls/hr TPN CONT IV Last administered on 10/31/16 22:12; Start 10/31/16 at 22:00; Stop 11/01/16 at 21:59; Status DC Potassium Chloride/Dextrose/ Sod Cl (KCl 40 Meq In D5%-1/2ns Iv Lindsey) 1,000 ml @ 50 mls/hr Q20H IV Last administered on 11/07/16 06:15; Start 11/01/16 at 10: 30 Enoxaparin Sodium 40 mg 40 mg Q24H SQ Last administered on 11/07/16 11:22; Start 11/01/16 at 11:00 Sodium Chloride/ Potassium Chloride/ Potassium Phosphate/ Magnesium Sulfate/ Calcium Gluconate/ Multivitamins/ Minerals/Chromium/ Copper/Manganese/ Seleni/Zn /Total Parenteral Nutrition/Amino Acids/Dextrose/ Fat Emulsion Intravenous ( Sodium Chloride/ Potassium Phospha... 1,512 ml @ 63 mls/hr TPN CONT IV Last administered on 11/01/16 21:41; Start 11/01/16 at 22:00; Stop 11/02/16 at 21:59 ; Status DC Acetaminophen 650 mg 650 mg PRN Q4HRS PRN PO MILD PAIN / TEMP Last administered on 11/01/16 23:06; Start 11/01/16 at 23:00 Sodium Chloride 90 meq/Potassium Chloride 100 meq/ Potassium Phosphate 13.6 mmol /Magnesium Sulfate 10 meq/ Calcium Gluconate 5 meq/ Multivitamins/ Minerals 10 ml/ Chromium/Copper/ Manganese/Seleni/ Zn 1 ml/Total Parenteral Nutrition/Amino Acids/Dextrose/ Fat Emulsion Intravenous 1,512 ml @ 63 mls/hr TPN CONT IV Last administered on 11/02/16 22:15; Start 11/02/16 at 22:00; Stop 11/03/16 at 21:59; Status DC Meropenem 1 gm/ Sodium Chloride 100 ml @ 200 mls/hr Q8HRS IV Last administered on 11/07/16 06:16; Start 11/02/16 at 13:30; Stop 11/07/16 at 08:49; Status DC Sodium Chloride/ Potassium Chloride/ Potassium Phosphate/ Magnesium Sulfate/ Calcium Gluconate/ Multivitamins/ Minerals/Chromium/ Copper/Manganese/ Seleni/Zn /Total Parenteral Nutrition/Amino Acids/Dextrose/ Fat Emulsion Intravenous ( Sodium Chloride/ Potassium Phospha... 1,512 ml @ 63 mls/hr TPN CONT IV Last administered on 11/03/16 21:42; Start 11/03/16 at 22:00; Stop 11/04/16 at 21:59 ; Status DC Polyethylene Glycol 17 gm 17 gm PRN DAILY PRN PO CONSTIPATION; Start 11/04/16 at 11:00 Sodium Chloride/ Potassium Chloride/ Potassium Phosphate/ Magnesium Sulfate/ Calcium Gluconate/ Multivitamins/ Minerals/Chromium/ Copper/Manganese/ Seleni/Zn /Total Parenteral Nutrition/Amino Acids/Dextrose/ Fat Emulsion Intravenous ( Sodium Chloride/ Potassium Phospha... 1,512 ml @ 63 mls/hr TPN CONT IV Last administered on 11/04/16 21:19; Start 11/04/16 at 22:00; Stop 11/05/16 at 21:59 ; Status DC Iohexol (Omnipaque 240 Mg/ml) 50 ml 1X ONCE PO Last administered on 11/04/16 15:09; Start 11/04/16 at 14:00; Stop 11/04/16 at 14:05; Status DC Iohexol (Omnipaque 300 Mg/ml) 75 ml 1X ONCE IV Last administered on 11/04/16 15:09; Start 11/04/16 at 14:00; Stop 11/04/16 at 14:05; Status DC Info 1 each 1 each PRN DAILY PRN MC SEE COMMENTS; Start 11/04/16 at 14:15; Stop 11/06/16 at 14:14; Status DC Sodium Chloride/ Potassium Chloride/ Potassium Phosphate/ Magnesium Sulfate/ Calcium Gluconate/ Multivitamins/ Minerals/Chromium/ Copper/Manganese/ Seleni/Zn /Total Parenteral Nutrition/Amino Acids/Dextrose/ Fat Emulsion Intravenous ( Sodium Chloride/ Potassium Phospha... 1,512 ml @ 63 mls/hr TPN CONT IV Last administered on 11/05/16 21:58; Start 11/05/16 at 22:00; Stop 11/06/16 at 21:59; Status DC Alteplase, Recombinant (Cathflo) 2 mg 1X ONCE INT CAT ; Start 11/05/16 at 13:00 ; Stop 11/05/16 at 13:01; Status DC Alteplase, Recombinant (Cathflo) 2 mg 1X ONCE INT CAT ; Start 11/05/16 at 13:00 ; Stop 11/05/16 at 13:01; Status DC Alteplase, Recombinant 2 mg 2 mg 1X ONCE INT CAT ; Start 11/05/16 at 13:00; Stop 11/05/16 at 13:01; Status DC Sodium Chloride/ Potassium Chloride/ Magnesium Sulfate/ Calcium Gluconate/ Multivitamins/ Minerals/Chromium/ Copper/Manganese/ Seleni/Zn/Total Parenteral Nutrition/Amino Acids/Dextrose/ Fat Emulsion Intravenous (Sodium Chloride/ Infuvite Adult/ Multitrace-5 Conc/ Tpn - Tpn Fluid/ Trophami... 1,512 ml @ 63 mls/hr TPN CONT IV Last administered on 11/06/16 21:42; Start 11/06/16 at 22:00 ; Stop 11/07/16 at 21:59 Lisinopril (Prinivil) 20 mg DAILY PO Last administered on 11/07/16 08:42; Start 11/06/16 at 14:00 Amoxicillin/ Clavulanate Potassium (Augmentin 875/ 125mg) 1 tab BID PO Last administered on 11/07/16 09:05; Start 11/07/16 at 09:00 Active Scripts Active Reported Prestalia 7 mg-5 mg Tablet (Perindopril Arg/Amlodipine Bes) 1 Each Tablet 1 Each PO Zolpidem Tartrate 10 Mg Tablet 1 Tab PO QHS Prozac (Fluoxetine Hcl) 20 Mg Capsule 1 Cap PO HS Mirapex (Pramipexole Di-Hcl) 0.25 Mg Tablet 1 Tab PO QHS Pravastatin Sodium 20 Mg Tablet 1 Tab PO QHS Hydrochlorothiazide Tablet (Hydrochlorothiazide) 12.5 Mg Tablet 1 Tab PO DAILY Vitals/I & O Vital Sign - Last 24 Hours 11/06/16 11/06/16 11/06/16 11/06/16 13:33 13:49 13:56 15:00 Temp 99.1 99.1 Pulse 67 66 Resp 18 18 16 B/P 176/98 141/89 Pulse Ox 97 O2 Delivery Nasal Cannula Nasal Cannula Nasal Cannula O2 Flow Rate 2.0 2.0 1.0 11/06/16 11/06/16 11/06/16 11/07/16 19:00 20:00 23:00 03:02 Temp 96.6 97.9 97.9 96.6 97.9 97.9 Pulse 67 63 61 Resp 20 20 20 B/P 158/99 155/93 131/75 Pulse Ox 97 98 98 O2 Delivery Nasal Cannula Nasal Cannula Nasal Cannula Nasal Cannula O2 Flow Rate 2.0 11/07/16 11/07/16 11/07/16 11/07/16 07:19 08:05 08:42 08:42 Temp 98.0 98.0 Pulse 72 72 72 Resp 18 B/P 129/89 129/89 129/89 Pulse Ox 93 O2 Delivery Room Air Nasal Cannula O2 Flow Rate 2.0 11/07/16 10:41 Temp 98.0 98.0 Pulse 75 Resp 18 B/P 130/79 Pulse Ox 96 O2 Delivery Nasal Cannula O2 Flow Rate 2.0 Intake and Output 11/06/16 11/06/16 11/07/16 15:00 23:00 07:00 Intake Total 360 ml 2001 ml 420 ml Balance 360 ml 2001 ml 420 ml APPL,TULIO Sewell MD Nov 07, 2016 12:01
[2016-11-07] MEDS: TPN PER PHARMACY MC PRN (13:00)
[2016-11-07 15:01] VITALS: BP 138/88
[2016-11-07] MEDS: HYDROMORPHONE STANDARD PCA 30 ML IV PRN (15:34)
[2016-11-07] MEDS ORDERED: FAMOTIDINE 20 MG TABLET. PO SCH (21:00)
[2016-11-07] MEDS ORDERED: DEXTROSE 70% IV SCH ×9 (22:00)
[2016-11-07] MEDS ORDERED: AMINO ACIDS IV SCH ×9 (22:00)
[2016-11-07] MEDS ORDERED: [UNRECOGNIZED DRUG - OTHER] IV SCH ×9 (22:00)
[2016-11-07] MEDS ORDERED: TOTAL PARENTERAL NUTRITION IV SCH ×9 (22:00)
[2016-11-07 22:06] VITALS: BP 132/85
[2016-11-08 03:00] VITALS: BP 130/86
[2016-11-08] MEDS: POTASSIUM CL 40MEQ D5-0.45NACL 1,000 ML IV SCH (03:00)
[2016-11-08] MEDS: OCTREOTIDE 100 MCG/ML VIAL SQ SCH (05:30)
[2016-11-08 06:06] LABS: CALCIUM 8.9 mg/dL (8.5-10.1); CREATININE 0.7 mg/dL (0.7-1.3); GFR 116.2; POTASSIUM 4.6 mmol/L (3.5-5.1)
[2016-11-08 07:00] VITALS: BP 143/97
[2016-11-08] MEDS: AMOXICILLIN/K CLAV 875/125MG TABLET. PO SCH (08:23)
[2016-11-08] MEDS: AMLODIPINE BESYLATE 5 MG TABLET PO SCH (08:23)
[2016-11-08] MEDS: LISINOPRIL 20 MG TABLET PO SCH (08:24)
[2016-11-08 10:55] VITALS: BP 138/87
[2016-11-08] MEDS: ENOXAPARIN 40 MG/0.4 ML DISP.SYRIN. SQ SCH (11:00)
--- NOTE | 2016-11-08 11:12 | PDOC ---
Infectious Disease Note Subjective Subjective Hoping to go home soon Denies pain. On [employer]ACT[employer] DEVELOPER Tolerating regular diet, still on TPN + BMs ROS ROS GEN: Denies fevers, chills, sweats CV: Denies chest pain RESP: Denies shortness of air, cough GI: Denies n/v/d Vital Sign Vital Signs Vital Signs Date Time Temp Pulse Resp B/P Pulse Ox O2 Delivery O2 Flow Rate FiO2 11/08/16 10:55 98.1 64 19 138/87 96 Room Air 2.0 98.1 Physical Exam PHYSICAL EXAM GENERAL: Lying bed, smiling HENT: OP/OC pink and moist NECK: Supple LUNGS: Clear HEART: S1S2, no gallop, no murmur ABD: Round, BS present, soft, NT EXT: No edema, no cyanosis CLAIMS ASSISTANT: Alert, 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, no focal neurologic deficit SKIN: No rash RUE-PICC. clean Labs Lab Laboratory Tests Test 11/07/16 12:11 11/07/16 17:04 11/07/16 22:49 11/08/16 05:45 Glucose (Fingerstick) 102mg/dL (70-99) 114mg/dL (70-99) 107mg/dL (70-99) Sodium Level 137mmol/L (136-145) Potassium Level 4.6mmol/L (3.5-5.1) Chloride Level 100mmol/L (98-107) Carbon Dioxide Level 28mmol/L (21-32) Anion Gap 9 (6-14) Blood Urea Nitrogen 16mg/dL (8-26) Creatinine 0.7mg/dL (0.7-1.3) Estimated GFR (Cockcroft-Gault) 116.2 Glucose Level 110mg/dL (70-99) Calcium Level 8.9mg/dL (8.5-10.1) Test 11/08/16 08:02 Glucose (Fingerstick) 143mg/dL (70-99) Objective Assessment Fever. Resolved Abd pain. better ? developing Ileus on INTERACTIVE DEVELOPER, bowels now moving Leukocytosis. improving Pancreatitis. pseudocyst on repeat CT. No necrosis or abnormal gas collection Plan Plan of Care Continue Augmentin for a total of 7 days OK to discharge from ID standpoint CHRIS GREGG APRN Nov 08, 2016 11:12
[2016-11-08] MEDS: TPN PER PHARMACY MC PRN (11:45)
--- NOTE | 2016-11-08 11:47 | PDOC ---
GENERAL General: see discharge summary. Problems: VITAL SIGNS Vital Signs: Vital Signs Date Time Temp Pulse Resp B/P Pulse Ox O2 Delivery O2 Flow Rate FiO2 11/08/16 10:55 98.1 64 19 138/87 96 Room Air 2.0 98.1 I & O I & O Intake and Output 11/08/16 07:00 Intake Total 1480 ml Balance 1480 ml Intake Oral 1480 ml # Voids 4 ALLERGIES Allergies: Allergies Coded Allergies Type Severity Reaction Last Updated Verified No Known Drug Allergies 10/24/16 No MEDS Medications: Current Medications Medications (Trade) Dose Ordered Sig/Gisela Start Time Stop Time Status Last Admin Dose Admin Acetaminophen 650 mg 650 mg PRN Q4HRS PRN 11/01/16 23:00 11/01/16 23:06 650 MG Alprazolam (Xanax) 0.5 mg PRN Q8HRS PRN 10/27/16 08:15 11/03/16 22:17 0.5 MG Alteplase, Recombinant (Cathflo) 2 mg 1X ONCE 11/05/16 13:00 11/05/16 13:01 DC Amino Acids/ Glycerin/ Electrolytes (Procalamine) 1,000 ml @ 80 mls/hr [id number] 10/30/16 12:15 10/30/16 21:59 DC 10/30/16 12:15 80 MLS/HR Amlodipine Besylate (Norvasc) 5 mg DAILY 10/27/16 09:00 11/08/16 08:23 5 MG Amoxicillin/ Clavulanate Potassium 1 tab 1 tab BID 11/07/16 09:00 11/08/16 08:23 1 TAB Aspirin (Children'S Aspirin) 324 mg 1X ONCE 10/24/16 20:30 10/24/16 20:31 DC Bisacodyl 10 mg 10 mg PRN DAILY PRN 10/30/16 11:30 11/01/16 02:57 10 MG Dextrose/Sodium Chloride (Iv D5% - 1/2 NS) 1,000 ml @ 150 mls/hr Q6H40M 10/25/16 13:00 11/01/16 09:49 DC 11/01/16 08:49 150 MLS/HR Dicyclomine HCl (Bentyl) 10 mg 1X ONCE 10/25/16 00:00 10/25/16 00:01 DC 10/24/16 23:43 10 MG Enoxaparin Sodium (Lovenox 40mg Syringe) 40 mg Q24H 11/01/16 11:00 11/07/16 11:22 40 MG Famotidine (Pepcid) 40 mg QHS 11/07/16 21:00 11/07/16 20:26 40 MG Fentanyl Citrate 50 mcg 50 mcg PRN Q2HR PRN 10/24/16 23:00 10/25/16 22:59 DC 10/25/16 14:31 50 MCG Fluoxetine HCl (Prozac) 20 mg HS 10/25/16 21:00 10/25/16 21:00 DC Hydromorphone HCl (Dilaudid Standard [employer]IL [employer]) 30 ml @ 0 mls/hr CONT PRN PRN 10/25/16 13:00 11/07/16 15:34 201,033 MLS/HR Hydromorphone HCl (Dilaudid) 1 mg Q1HR PRN 10/25/16 09:30 10/25/16 09:30 DC Hydromorphone HCl 1 mg 1 mg PRN Q1HR PRN 10/25/16 09:31 10/25/16 13:05 DC 10/25/16 12:26 1 MG Info 1 each PRN DAILY PRN 10/30/16 12:15 11/07/16 13:00 1 EACH Info (Do NOT chart on this entry -- for MONITORING) 1 each PRN DAILY PRN 10/24/16 21:15 10/26/16 21:14 DC Info 1 each 1 each PRN DAILY PRN 11/04/16 14:15 11/06/16 14:14 DC Iohexol (Omnipaque 240 Mg/ml) 50 ml 1X ONCE 11/04/16 14:00 11/04/16 14:05 DC 11/04/16 15:09 50 ML Iohexol (Omnipaque 300 Mg/ml) 75 ml 1X ONCE 11/04/16 14:00 11/04/16 14:05 DC 11/04/16 15:09 75 ML Iohexol (Omnipaque 350 Mg/ml) 90 ml 1X ONCE 10/24/16 21:30 10/24/16 21:31 DC 10/24/16 21:48 90 ML Iohexol 30 ml 30 ml 1X ONCE 10/29/16 12:45 10/29/16 12:46 DC 10/29/16 13:57 30 ML Labetalol HCl (Normodyne) 20 mg PRN Q2HR PRN 10/25/16 09:00 10/29/16 16:22 20 MG Lisinopril (Prinivil) 20 mg DAILY 11/06/16 14:00 11/08/16 08:24 20 MG Lorazepam 1 mg 1 mg PRN Q4HRS PRN 10/25/16 13:00 10/31/16 22:21 1 MG Magnesium Sulfate/ Dextrose (Magnesium Sulfate PREMIX 2GM) 50 ml @ 25 mls/hr 1X ONCE 10/25/16 13:00 10/25/16 14:59 DC 10/25/16 15:45 25 MLS/HR Meropenem/Sodium Chloride (Merrem/Iv Sodium Chloride 0.9% 100ml) 100 ml @ 200 mls/hr Q8HRS 11/02/16 13:30 11/07/16 08:49 DC 11/07/16 06:16 200 MLS/HR Morphine Sulfate 2 mg PRN Q2HR PRN 10/24/16 23:00 10/25/16 22:59 DC Nitroglycerin (Nitrostat) 0.4 mg PRN Q5MIN PRN 10/24/16 20:30 10/24/16 20:32 0.4 MG Octreotide Acetate 100 mcg 100 mcg Q8HRS 10/30/16 15:00 11/08/16 05:30 100 MCG Ondansetron HCl (Zofran) 4 mg PRN Q6HRS PRN 10/27/16 08:15 10/27/16 14:47 DC Polyethylene Glycol (miraLAX PACKET) 17 gm PRN DAILY PRN 11/04/16 11:00 Potassium Chloride/Dextrose/ Sod Cl (KCl 40 Meq In D5%-1/2ns Iv Lindsey) 1,000 ml @ 50 mls/hr Q20H 11/01/16 10:30 11/08/16 03:00 50 MLS/HR Potassium Chloride 100 ml @ 100 mls/hr Q1H 10/30/16 19:00 10/30/16 20:59 DC 10/30/16 20:00 100 MLS/HR Potassium Chloride (KCl Premix 10meq) 100 ml @ 100 mls/hr Q1H 10/30/16 11:00 10/30/16 12:59 DC 10/30/16 12:39 100 MLS/HR Pramipexole Dihydrochloride (miraPEX) 0.25 mg QHS 10/25/16 21:00 10/25/16 21:00 DC Sodium Chloride (Iv Sodium Chloride 0.9% 1000ml Bag) 1,000 ml @ 100 mls/hr 1X ONCE 10/24/16 23:45 10/25/16 09:44 DC 10/24/16 23:53 100 MLS/HR Sodium Chloride 90 meq/Potassium Chloride 100 meq/ Potassium Phosphate 13.6 mmol/Magnesium Sulfate 10 meq/ Calcium Gluconate 5 meq/ Multivitamins/ Minerals 10 ml/ Chromium/Copper/ Manganese/Seleni/ Zn 1 ml/Total Parenteral Nutrition/Amino Acids/Dextrose/ Fat Emulsion Intravenous 1,512 ml @ 63 mls/hr TPN CONT 11/02/16 22:00 11/03/16 21:59 DC 11/02/16 22:15 63 MLS/HR Sodium Chloride 90 meq/Potassium Chloride 80 meq/ Potassium Phosphate 13.6 mmol/Magnesium Sulfate 10 meq/ Calcium Gluconate 5 meq/ Multivitamins/ Minerals 10 ml/ Chromium/Copper/ Manganese/Seleni/ Zn 1 ml/Total Parenteral Nutrition/Amino Acids/Dextrose/ Fat Emulsion Intravenous 1,512 ml @ 63 mls/hr TPN CONT 10/31/16 22:00 11/01/16 21:59 DC 10/31/16 22:12 63 MLS/HR Sodium Chloride/ Potassium Chloride/ Magnesium Sulfate/ Calcium Gluconate/ Multivitamins/ Minerals/Chromium/ Copper/Manganese/ Seleni/Zn/Total Parenteral Nutrition/Amino Acids/Dextrose/ Fat Emulsion Intravenous (Sodium Chloride/ Infuvite Adult/ Multitrace-5 Conc/ Tpn - Tpn Fluid/ Trophami... 1,512 ml @ 63 mls/hr TPN CONT 11/07/16 22:00 11/08/16 21:59 11/07/16 22:36 63 MLS/HR Sodium Chloride/ Potassium Chloride/ Potassium Phosphate/ Magnesium Sulfate/ Calcium Gluconate/ Multivitamins/ Minerals/Chromium/ Copper/Manganese/ Seleni/Zn/Total Parenteral Nutrition/Amino Acids/Dextrose/ Fat Emulsion Intravenous (Sodium Chloride/ Potassium Phospha... 1,512 ml @ 63 mls/hr TPN CONT 11/05/16 22:00 11/06/16 21:59 DC 11/05/16 21:58 63 MLS/HR Zolpidem Tartrate (Ambien) 5 mg QHS 10/25/16 21:00 10/25/16 21:00 DC Zolpidem Tartrate 5 mg 5 mg PRN QHS PRN 10/25/16 13:00 10/25/16 13:05 DC LAB Lab: Laboratory Tests Test 11/07/16 12:11 11/07/16 17:04 11/07/16 22:49 11/08/16 05:45 Glucose (Fingerstick) 102mg/dL (70-99) 114mg/dL (70-99) 107mg/dL (70-99) Sodium Level 137mmol/L (136-145) Potassium Level 4.6mmol/L (3.5-5.1) Chloride Level 100mmol/L (98-107) Carbon Dioxide Level 28mmol/L (21-32) Anion Gap 9 (6-14) Blood Urea Nitrogen 16mg/dL (8-26) Creatinine 0.7mg/dL (0.7-1.3) Estimated GFR (Cockcroft-Gault) 116.2 Glucose Level 110mg/dL (70-99) Calcium Level 8.9mg/dL (8.5-10.1) Test 11/08/16 08:02 Glucose (Fingerstick) 143mg/dL (70-99) TULIO FRAIRE MD Nov 08, 2016 11:47
== END 2016-11-08 13:00 | disposition home or self-care (01) | DRG 438 ==
LOC: ER 20:00 → 2 NORTH 23:01 → 5 NORTH 10-26 19:16
PROVIDERS: ADMIT Family Medicine; ATTEND Family Medicine
PROC: 02HV33Z Insertion of Infusion Device into Superior Vena Cava, Percutaneous Approach (ICD-10-PCS; principal; 2016-10-30)
DX: K85.90 Acute pancreatitis without necrosis or infection, unspecified (principal); R65.11 Systemic inflammatory response syndrome (SIRS) of non-infectious origin with acute organ dysfunction; K55.1 Chronic vascular disorders of intestine; J98.11 Atelectasis; K56.7 Ileus, unspecified; K57.32 Diverticulitis of large intestine without perforation or abscess without bleeding; K86.3 Pseudocyst of pancreas; E78.00 Pure hypercholesterolemia, unspecified; E78.5 Hyperlipidemia, unspecified; E87.6 Hypokalemia; F17.200 Nicotine dependence, unspecified, uncomplicated; F32.9 Major depressive disorder, single episode, unspecified; G25.81 Restless legs syndrome; I10 Essential (primary) hypertension; M19.90 Unspecified osteoarthritis, unspecified site; R31.9 Hematuria, unspecified; F10.20 Alcohol dependence, uncomplicated; F41.9 Anxiety disorder, unspecified; G89.29 Other chronic pain; D17.9 Benign lipomatous neoplasm, unspecified; Z90.49 Acquired absence of other specified parts of digestive tract; Z82.49 Family history of ischemic heart disease and other diseases of the circulatory system
CPT/HCPCS: 36415; 71010; 71275; 74000; 74174; 74177; 80048; 80053; 80061; 80076; 81001; 82947; 83615; 83690; 83735; 83880; 84100; 84132; 84478; 84484; 85007; 85027; 93005; 96372; 96374; 96375; J0500; J0610; J1170; J1650; J2060; J2185; J2270; J2354; J2405; J3010; J3475; J3480; J3490; J7030; J7042; J7060; Q9966; Q9967; S0028; 99285-25